=== PATIENT | male | born 1935 | race Caucasian/White ===

== ENCOUNTER 2018-02-24 09:18 | Emergency (ER) | payer MEDICARE, OTHER, SELFPAY ==
[2018-02-24 09:18] VITALS: BP 142/89; PULSE 83; RESP 16; TEMP 36.4; O2SAT 95; BMI 26.2
--- NOTE | 2018-02-24 09:29 | VDLE_ITS ---
Reason For Study: RLE PAIN RIGHT LEFT CFV is compressible, spontaneous, phasic, GSV is normal. competent and demonstrates normal CFV is compressible, spontaneous, phasic, augmentation. competent, and demonstrates normal Procedure augmentation. Exam performed portable in ED. FV is compressible, spontaneous, phasic, The exam was diagnostic. competent and demonstrates normal A preliminary report was called and/or faxed augmentation. to DR. GARRISON @ 10:20 AM. POP V is compressible, spontaneous, phasic, competent and demonstrates normal augmentation. T/P Trunk is compressible. PTV is compressible. LT PerV is compressible. Interpretation Summary There is no evidence of left lower extremity deep vein thrombosis. Left greater saphenous vein appears patent and compressible segmentally. Normal flow patterns right common femoral vein Ordering Physician: Sarah Garrison Referring Physician: PABLO Guo M.D. Performed By: Fernanda Howell RDCS, RVT
--- NOTE | 2018-02-24 09:43 | RAD_ITS ---
STUDY: X-RAY - LEFT TIBIA AND FIBULA REASON FOR EXAM: Male, 83 years old. PROXIMAL POSTERIOR LOWER LEG PAIN. TECHNIQUE: 2 view(s) of the tibia and fibula were obtained. COMPARISON: None. FINDINGS: Normal visualized tibia. Normal visualized fibula. Vascular calcifications RAD/Tibia & Fibula 2 Views IMPRESSION: No fracture or dislocation Electronically Signed: Taniya Boateng MD at 10:07 EDT Tel , Service support ,
--- NOTE | 2018-02-24 10:33 | ED.VISSUMM ---
- ER Visit Summary Date of Service: 02/24/18 Chief Complaint: [Left leg pain] History of Present Illness: The patient is a 83 M [presents the emergency department with complaint of pain in his left leg that started 2 days ago. Patient states initially the pain started just above the anterior aspect of his ankle. That pain is now resolved but now has discomfort behind the left knee. Patient denies any chest pain or shortness of breath. Patient denies any injury. He denies any fever. 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 Patient not currently on anticoagulation. Patient has not taken anything for the pain at home.] Physical Examination: [HEENT-PERRLA, EOMI. Cranial nerves II through XII grossly intact. TMs clear. Mucous membranes moist. No adenopathy. Cardiovascular-regular rate and rhythm without murmur or ectopy Lungs-clear to auscultation, chest wall stable without crepitus or subcu emphysema Abdomen-normoactive bowel sounds, soft, nontender, no rebound or rigidity, no peritoneal signs. Extremities-intact ?4, normal range of motion, normal pulses, atraumatic]. Left leg-patient has tenderness behind the left knee diffusely. No ropes or cords palpated. There is no joint effusion of the knee. Neurovascularly intact distally. Patient has normal range of motion at the knee. Test Results: [Venous duplex of the left lower extremity was negative for DVT. Tib-fib x-ray obtained showed nothing acute.] Emergency Department Course and Treatment: [None] Treatment Plan: [Patient advised to take Tylenol for discomfort. Patient to follow-up with his primary care physician in 5-7 days. Patient did not want anything for pain in the emergency department.] Disposition: [Discharged home in stable condition] Impression: [Left leg pain-etiology uncertain] This note was generated with [employer] dictation software. It may contain incorrect words, spelling, and punctuation that were not noted in review of the chart prior to signing ED Disposition - Plan for ED Patient: Chief Complaint: Lower Extremity Injury Referrals: Lamin Guo III, MD [Primary Care Provider] -
--- NOTE | 2018-02-24 10:36 | ED.DEP ---
ED Disposition - Plan for ED Patient: Chief Complaint: Lower Extremity Injury Instructions: ED Knee Pain [facility] Referrals: Lamin Guo III, MD [Primary Care Provider] - 5-7 Days
== END 2018-02-24 11:02 | disposition home or self-care (01) ==
PROVIDERS: Emergency Provider Emergency Medicine; Family Provider Family Medicine; PCP Family Medicine
DX: M79.605 Pain in left leg (principal); N40.0 Benign prostatic hyperplasia without lower urinary tract symptoms; Z79.82 Long term (current) use of aspirin; Z79.899 Other long term (current) drug therapy; Z87.19 Personal history of other diseases of the digestive system; Z86.718 Personal history of other venous thrombosis and embolism; Z85.72 Personal history of non-Hodgkin lymphomas; Z86.39 Personal history of other endocrine, nutritional and metabolic disease
CPT/HCPCS: 73590; 93971; 99282

== ENCOUNTER 2018-08-07 11:19 | Emergency (ER) | payer MEDICARE, OTHER, SELFPAY ==
[2018-08-07 11:20] VITALS: BP 146/77; PULSE 44; RESP 16; TEMP 36.4; O2SAT 99; BMI 27.4
--- NOTE | 2018-08-07 11:24 | EKG12_ITS ---
Test Reason : DIZZINESS Blood Pressure : / mmHG Vent. Rate : 077 BPM Atrial Rate : 077 BPM P-R Int : 190 ms QRS Dur : 100 ms QT Int : 400 ms P-R-T Axes : 025 -45 054 degrees QTc Int : 452 ms Sinus rhythm with frequent Premature ventricular complexes and Premature atrial complexes Left anterior fascicular block Abnormal ECG Confirmed by TEDDY POLLOCK, EDWIN ([id number]), research editor ALTHEA BERNAL ([id number]) on 08/08/2018 1:31:33 PM Referred By: CHRISTIAN Confirmed By:EDWIN ESPINAL MD
--- NOTE | 2018-08-07 11:24 | RAD_ITS ---
STUDY: X-RAY CHEST REASON FOR EXAM: Male, 83 years old. Low pulse TECHNIQUE: Single AP portable view of the chest. COMPARISON: None. FINDINGS: There is hyperinflation of the lungs consistent with chronic obstructive lung disease (COPD). Mild scarring or atelectasis in the lung bases. There is no demonstrated pleural abnormality. There is borderline cardiomegaly. Normal mediastinum and isiah. Normal visualized pulmonary arteries. Normal visualized aortic arch and descending thoracic aorta. There are diffuse degenerative changes of the visualized thoracic spine. There is degenerative osteoarthritis of the bilateral shoulders. There is no demonstrated abnormality of the visualized soft tissue structures of the upper abdomen. RAD/Chest 1 View (Portable) IMPRESSION: No acute cardiopulmonary disease Electronically Signed: Sraath Rodriguez DO at 12:04 EDT Tel , Service support ,
[2018-08-07 12:21] LABS: Absolute Lymphocyte Count 0.79 X10^3/ul (0.83-4.51); Absolute Neutrophil Count 3.9 X10^3/uL (2.0-7.7); Basophil# 0.02 X10^3/uL; Basophil% 0.4 % (0-1); Eosinophil# 0.17 X10^3/uL; Eosinophils% 3.1 % (0-5); Hematocrit 42.9 % (40-54); Lymphocyte # 0.79 X10^3/ul (4.0); Lymphocyte % 14.5 % (19-41); Mean Corp Hgb Conc 32.6 g/gl (32-36); Mean Corpuscular Hgb 31.6 pg (27.0-32.0); Mean Corpuscular Volume 96.8 fL (80-94); Mean Platelet Vol. 10.2 fl (6.2-12.0); Monocyte# 0.58 X10^3/uL; Monocyte% 10.6 % (0-10); Neutrophil # 3.88 X10^3/uL (2.7-7.7); Neutrophil % 71.2 % (47-70); Platelet Count 206 K/mm3 (150-450); RBC Distribution Width CV 13.3 % (11.6-14.6); RBC Distribution Width SD 46.6 fl (35.1-43.9); Red Blood Count 4.43 M/mm3 (4.6-6.2); White Blood Count 5.5 K/mm3 (4.4-11.0)
[2018-08-07 12:22] LABS: POSITIVE COUNT NO; POSITIVE DIFFERENTIAL NO; POSITIVE MORPHOLOGY NO
[2018-08-07 12:30] VITALS: BP 149/73; PULSE 60; RESP 16; O2SAT 97
[2018-08-07 12:36] LABS: Anion Gap 5 (5-15); BUN 24 mg/dL (7-18); BUN/Creat Ratio 22.4 RATIO (10-20); Chloride 107 mmol/L (98-107); Creatinine, Serum 1.07 mg/dL (0.70-1.30); EST Glomerular Filtration Rate 70 mL/min (>60); Est Glom Filt Rate - Afr Amer 85 mL/min (>60); Estimated Creatinine Clearance 45.34 ml/min; Glucose 83 mg/dL (74-106); Potassium 4.7 mmol/L (3.5-5.1); Sodium Level 139 mmol/L (136-145)
--- NOTE | 2018-08-07 13:04 | ED.DCSUM_ITS ---
- ER Visit Summary Date of Service: 08/07/18 Chief Complaint: [Low heart rate] History of Present Illness: The patient is a 83 M [presents to the emergency department with complaint of low heart rate over the last month. Patient states that he has been checking his pulse ox at home and his heart rate on a finger monitor and at times it has been reading heart rates in the 40s. Patient denies any chest pain. He does describe some mild lightheadedness at times patient also states he has had some mild shortness of breath with exertion is been a chronic issue for a long time. Patient denies recent illness. Patient called his primary care physician's office and was told to come to the ER to get evaluated. Past medical history significant for lymphoma , constipation, and gout.] Physical Examination: [HEENT-PERRLA, EOMI. Cranial nerves II through XII grossly intact. TMs clear. Mucous membranes moist. No adenopathy. Cardiovascular-regular rate and rhythm without murmur or ectopy Lungs-clear to auscultation, chest wall stable without crepitus or subcu emphysema Abdomen-normoactive bowel sounds, soft, nontender, no rebound or rigidity, no peritoneal signs. Extremities-intact ?4, normal range of motion, normal pulses, atraumatic] Test Results: [KG on arrival shows sinus rhythm with a ventricular rate 77 bpm with occasional PVCs and a left anterior fascicular block. CBC with differential obtained showing a 5.5, hemoglobin 14, hematocrit 43, platelets 206. Chemistries were unremarkable. Troponin was less than 0.015.] Chest x- ray showed nothing acute. Emergency Department Course and Treatment: [I had the patient place his finger monitor on his finger and it was reading heart rates in the 50s while on the monitor patient was actually in the 70s. At this point I feel patient is likely get an erroneous results from his monitor which may not be picking up his PVCs.] Treatment Plan: [I reassured the patient that I did not feel there was any emergent indication to admit the patient at this point nor did I see any condition that needed to be addressed. I will discuss case with patient's primary care physician.] Disposition: [Discharged home in stable condition] Impression: [Concern for bradycardia-normal heart rate and exam in the emergency department] This note was generated with [employer] dictation software. It may contain incorrect words, spelling, and punctuation that were not noted in review of the chart prior to signing ED Disposition - Plan for ED Patient: Chief Complaint: Chest Other Referrals: Lamin Guo III, MD [Primary Care Provider] -
--- NOTE | 2018-08-07 13:04 | ED.DEP ---
ED Disposition - Plan for ED Patient: Chief Complaint: Chest Other Instructions: ED Bradycardia, Premature Ventricular Contractions Referrals: Lamin Guo III, MD [Primary Care Provider] - 5-7 Days
[2018-08-07 13:55] VITALS: BP 161/66; PULSE 66; RESP 16; O2SAT 97
== END 2018-08-07 14:02 | disposition home or self-care (01) ==
LOC: ED 13:25
PROVIDERS: Emergency Provider Emergency Medicine; Family Provider Family Medicine; PCP Family Medicine
DX: R42 Dizziness and giddiness (principal); R06.02 Shortness of breath; I44.4 Left anterior fascicular block; I49.3 Ventricular premature depolarization; Z79.82 Long term (current) use of aspirin; Z79.899 Other long term (current) drug therapy; Z85.72 Personal history of non-Hodgkin lymphomas
CPT/HCPCS: 71045; 80048; 84484; 85025; 93005; 99284; A4216

== ENCOUNTER 2019-09-27 11:55 | Observation (INO) | payer MEDICARE, OTHER, SELFPAY ==
[2019-09-27] VITALS (12 sets, daily range): BP systolic 107–154; BP diastolic 50–84; PULSE 47–78; RESP 16–25; TEMP 36.4–37; O2SAT 95–98; BMI 25.8; BMI 25.4
--- NOTE | 2019-09-27 12:10 | CT_ITS ---
STUDY: CT BRAIN WITHOUT CONTRAST REASON FOR EXAM: Male, 84 years old. Dizziness and lightheadedness RADIATION DOSAGE (If Supplied By Facility): CTDIvol = ( 44.99 ) mGy, DLP = ( 745.49 ) mGycm TECHNIQUE: Transaxial CT imaging of the brain was performed without administration of intravenous contrast material. Individualized dose optimization techniques were used for this CT. COMPARISON: No relevant priors. FINDINGS: Normal soft tissue structures. Normal calvarium. There is severe cerebral atrophy with widening of the extra-axial spaces and ventricular dilatation. There are areas of decreased attenuation within the white matter tracts of the supratentorial brain, consistent with microvascular disease changes. Normal basal ganglia and thalami. Normal brainstem. There is moderate cerebellar atrophy. There is no intracranial hemorrhage. There are no findings of an acute ischemic infarction. Normal visualized paranasal sinuses. CT/Brain/Head without Contrast IMPRESSION: Chronic involutional changes of the brain. Electronically Signed: Sarath Rodriguez DO at 13:56 EST Tel , Service support ,
--- NOTE | 2019-09-27 12:10 | EKG12_ITS ---
Test Reason : SYNCOPE Blood Pressure : / mmHG Vent. Rate : 072 BPM Atrial Rate : 072 BPM P-R Int : 186 ms QRS Dur : 092 ms QT Int : 418 ms P-R-T Axes : 042 -29 049 degrees QTc Int : 457 ms Sinus rhythm with frequent Premature ventricular complexes in a pattern of bigeminy Otherwise normal ECG Confirmed by TEDDY POLLOCK, EDWIN ([id number]), restaurant expeditor JAMIE CARRILLO ([id number]) on 09/30/2019 1:55:36 PM Referred By: Tarun Noriega Confirmed By:EDWIN ESPINAL MD
--- NOTE | 2019-09-27 12:25 | RAD_ITS ---
STUDY: X-RAY CHEST REASON FOR EXAM: Male, 84 years old. Syncope and shortness of breath TECHNIQUE: Single AP portable view of the chest. COMPARISON: 08/07/2018 FINDINGS: The lungs are clear and expanded. There is no demonstrated pleural abnormality. There is borderline cardiomegaly. Normal mediastinum and isiah. Normal visualized pulmonary arteries. Normal visualized aortic arch and descending thoracic aorta. Normal visualized thoracic spine. Normal visualized ribs, clavicles, and shoulders. There is no demonstrated abnormality of the visualized soft tissue structures of the upper abdomen. RAD/Chest 1 View (Portable) IMPRESSION: No acute cardiopulmonary disease. Electronically Signed: Sarath Rodriguez DO at 13:33 EST Tel , Service support ,
[2019-09-27] MEDS: 0.9% Normal Saline 1,000 ML 150 ML IV (12:26)
[2019-09-27 12:35] LABS: Absolute Lymphocyte Count 0.68 X10^3/uL (0.83-4.51); Absolute Neutrophil Count 3.6 X10^3/uL (2.0-7.7); Basophil# 0.03 X10^3/uL; Basophil% 0.6 % (0-1); Eosinophil# 0.07 X10^3/uL; Eosinophils% 1.4 % (0-5); Hematocrit 43.4 % (40-54); Hemoglobin 14.3 g/dL (13.0-16.5); Lymphocyte # 0.68 X10^3/ul (4.0); Mean Corp Hgb Conc 32.9 g/dL (32-36); Mean Corpuscular Hgb 32.4 pg (27.0-32.0); Mean Corpuscular Volume 98.2 fL (80-94); Mean Platelet Vol. 10.4 fl (6.2-12.0); Monocyte# 0.52 X10^3/uL; Monocyte% 10.7 % (0-10); NRBC Flagged by Analyzer 0 % (0-5); Neutrophil # 3.56 X10^3/uL (2.7-7.7); Neutrophil % 73.1 % (47-70); Platelet Count 175 K/mm3 (150-450); RBC Distribution Width SD 46.5 fl (35.1-43.9); Red Blood Count 4.42 M/mm3 (4.6-6.2); White Blood Count 4.9 K/mm3 (4.4-11.0)
[2019-09-27 12:50] LABS: White Blood Cells 0 SEEN /hpf (0-5)
[2019-09-27 12:52] LABS: Color, Urine Yellow (Yellow); Glucose, Dipstick Normal (Normal); Ketone-Dipstick 5 mg/dl (Negative); Leukocyte Esterase-Dipstick 25 /ul (Negative); Nitrite-Dipstick Negative (Negative); Occult Blood-Urine Negative /ul (Negative); Protein-Dipstick 15 mg/dl (Negative); Specific Gravity, Urine 1.015 (1.002-1.030); Urine Bilirubin Dipstick Negative (Negative); Urine Clarity Clear (Clear); Urine Urobilinogen Normal (Normal)
[2019-09-27 12:52] LABS: Anion Gap 6 (5-15); BUN 23 mg/dL (7-18); BUN/Creat Ratio 22.8 RATIO (10-20); Calcium,Total 8.9 mg/dL (8.5-10.1); Chloride 108 mmol/L (98-107); Creatinine, Serum 1.01 mg/dL (0.70-1.30); EST Glomerular Filtration Rate 75 mL/min (>60); Est Glom Filt Rate - Afr Amer 91 mL/min (>60); Estimated Creatinine Clearance 47.22 ml/min; Glucose 88 mg/dL (74-106); Potassium 4.6 mmol/L (3.5-5.1); Sodium Level 141 mmol/L (136-145)
[2019-09-27 13:00] LABS: Bacteria RARE /hpf (None Seen); Mucous, Urine 1+ /hpf (<or=2+); Red Blood Cells-Urine 0-5 SEEN /hpf (0-5); Squamous Epithelial Cells - UA 0-5 SEEN /hpf (0-5)
--- NOTE | 2019-09-27 14:01 | ED.VISSUMM ---
- ER Visit Summary Date of Service: 09/27/19 Chief Complaint: [Dizziness and near syncope] History of Present Illness: The patient is a 84 M [presents to the emergency department with complaint of dizziness and not feeling well that started about an hour ago. Patient states that he was in a vehicle waiting for his friend who was shopping when he just started not feeling well. Patient felt like he might pass out. He denies any chest pain or palpitations. He denies any shortness of breath. Apparently had trouble getting out of the car. He generally felt weak but is not sure if there was any focal weakness. He states that he just feels like he is not alert. She has never felt this way before. He denies any headache. Patient has history of high cholesterol, gout, lymphoma, and history of diverticulitis.] Physical Examination: HEENT-PERRLA, EOMI. Cranial nerves II through XII grossly intact. TMs clear. Mucous membranes moist. No adenopathy. Cardiovascular-regular rate and rhythm without murmur or ectopy Lungs-clear to auscultation, chest wall stable without crepitus or subcu emphysema Abdomen-normoactive bowel sounds, soft, nontender, no rebound or rigidity, no peritoneal signs. Neuro [id number] and heel vásquez testing within normal limits, negative Romberg, negative pronator drift, fundi benign. H stroke scale was a 0. Extremities-intact ?4, normal range of motion, normal pulses, atraumatic [] Test Results: [CT scan of the brain without contrast showed chronic involutional changes. Chest x-ray showed nothing acute. EKG on arrival showed a sinus rhythm with a ventricular rate of 72 bpm with frequent PVCs in a bigeminy pattern. CBC with differential shows a white count of 4.9, hemoglobin 14, hematocrit 43, platelets 175. Chemistries unremarkable. Urinalysis normal. Troponin is less than 1015.] Emergency Department Course and Treatment: [Patient had orthostatic vital signs were negative. Patient placed on a manager cardiac cath and started on normal saline.] Treatment Plan: [Admit as patient continues to be symptomatic and no etiology is noted for his symptoms.] Disposition: [Admit] Impression: [Generalized weakness Dizziness] This note was generated with [employer] software. It may contain incorrect words, spelling, and punctuation that were not noted in review of the chart prior to signing ED Disposition - Plan for ED Patient: Referrals: Lamin Guo III, MD [Primary Care Provider] -
--- NOTE | 2019-09-27 14:11 | PCM.HP.STD ---
Problem List (1) Near syncope Status: Acute (2) Constipation Status: Chronic (3) Diverticulitis Status: Inactive (4) BPH (benign prostatic hyperplasia) Status: Chronic (5) Gout Status: Chronic (6) HLD (hyperlipidemia) Status: Chronic (7) Lymphoma Status: Chronic History of Present Illness Date of Admission: 09/27/19 Chief Complaint: Near syncope The patient is a 84 year old M with multiple comorbidities as mentioned above came to ER with dizziness, weakness and blurry vision for about an hour prior to arrival to ER. This happened today while he was sitting in the car of his friend while he was shopping. Patient denies vomiting, nausea, diarrhea/constipation or GI bleed. Denies flulike symptoms fever, cough, lower urinary tract symptoms including dysuria. Patient has history of PVCs and had a stress test in [facility]. Denies history of coronary artery disease, CHF or valvular heart disease. In ED, although his heart rate charted 47 but ER physician feels it might have been misread because of PVCs. On EKG, sinus rhythm with also has bigeminy at 72 bpm. Previous EKG in July 2018 normal sinus rhythm with PVCs with LAFB at 77 bpm. There is no previous stress test, or echo in our system. Orthostatic vitals done in ER is negative. Labs done in ER shows chloride 108, BUN 23 otherwise in acceptable range. UA is negative of pyuria, LE 25 nitrite and bacteria negative. Past Medical History Past Medical History (Chronic Problems): Chronic Problems Gout (Chronic) HLD (hyperlipidemia) (Chronic) BPH (benign prostatic hyperplasia) (Chronic) Lymphoma (Chronic) Constipation (Chronic) Allergies amoxicillin trihydrate [From Augmentin] Allergy (Verified 09/27/19 11:55) Unknown atenolol Allergy (Verified 09/27/19 11:55) Other clindamycin Allergy (Verified 09/27/19 11:55) Hives potassium clavulanate [From Augmentin] Allergy (Verified 09/27/19 11:55) Unknown Home Medications: Ambulatory Orders Medication Instructions Recorded Finasteride [Proscar] 5 mg PO DAILY 04/05/15 Atorvastatin Calcium [Lipitor] 20 mg PO QHS 02/14/17 Nitroglycerin (INPATIENT USE) 0.4 mg SUBLINGUAL Q5M PRN 02/14/17 [Nitrostat] Tamsulosin HCl [Flomax] 0.4 mg PO QHS 02/14/17 Isosorbide Mononitrate [Isosorbide 30 mg PO DAILY 04/23/17 Mononitrate ER] Cholecalciferol (Vitamin D3) 2,000 unit PO DAILY 05/21/17 [Vitamin D3] Aspirin E.C. [Ecotrin] 81 mg PO DAILY@0800 02/24/18 Psyllium Husk [Metamucil] 660 gm PO DAILY 02/24/18 Surgical History: - - back surgery Psychiatric History: No pertinent psych hx Smoking Status: Never smoker - *Family History Sibling History Items: Cancer - prostate Maternal History Items: Heart Disease Review of Systems Constitutional: Denies: Chills, Fever, Weight Change HEENT: Denies: Head Aches, Sinus Congestion, Sinus Drainage Cardiovascular: Reports: Light Headedness. Denies: Chest Pain, Palpitations Respiratory: Denies: Cough, Shortness of breath at rest, Sputum production Gastrointestinal: Reports: Constipation. Denies: Abdominal Pain, Nausea, Vomiting Genitourinary: Denies: Dysuria, Frequency Musculoskeletal: Denies: Joint Pain, Joint Tenderness Skin: Denies: Rash, Wounds Neurological: Denies: Numbness, Tingling, Focal weakness Psychiatric: Denies: Anxiety, Depression, Homicidal Ideations, Suicidal Ideations Hematologic/ Lymphatic: Denies: Easy Bruising, Easy Bleeding VTE Information - Inpt Only VTE Present on Admission: No VTE Mechan Device Prophylaxis: None VTE Pharm Prophylaxis ordered?: Yes Patient Problems: Active and Suspected Problems Near syncope (Acute) - Physical Exam Vitals/I&O's: Vital Signs Temp Pulse Resp BP Pulse Ox 97.6 F L 72 22 H 112/84 H 96 09/27/19 11:55 09/27/19 14:00 09/27/19 14:00 09/27/19 14:00 09/27/19 14:00 Oxygen Delivery Method Room Air Weight: 150 lb 5.684 oz Body Mass Index (BMI) 25.8 General: Alert, Oriented x3, Cooperative HEENT: Atraumatic, PERRLA, EOMI, Normocephalic Oral: No Gingival or Mucosal Lesions/ Ulcerations, Dry Mucosa - Patient is dehydrated Neck: Supple, No JVD, Negative Carotid Bruits Lungs: Clear to auscultation, Normal air movement, No rhonchi, No wheeze, No rales Cardiovascular: Regular rate, Normal S1, Normal S2, Irregular Rate - Pulses bigeminy., Murmur - Systolic murmur present over aortic region and left lower sternal border. Abdomen: Bowel Sounds Present, Soft, Non Tender, Non-Distended Extremities: No edema, Capillary Refill Less than 3 Seconds Skin: No rashes, No breakdown Musculoskeletal: No Tenderness to Palpation of Joints or Extremities, Arthritic Changes Neurological: Cranial nerves II-XII grossly intact, Deep Tendon Reflexes 2+/4 and Symmetrical, Neuro grossly intact Psych/Mental Status: Normal Affect, Appropriate Laboratory Results 09/27/19 12:15: WBC 4.9, RBC 4.42 L, Hgb 14.3, Hct 43.4, MCV 98.2 H, MCH 32.4 H, MCHC 32.9, RDW Std Deviation 46.5 H, RDW Coeff of Raul 13.0, Plt Count 175, MPV 10.4, Immature Gran % (Auto) 0.200, Neut % (Auto) 73.1 H, Lymph % (Auto) 14.0 L, Juncos % (Auto) 10.7 H, Eos % (Auto) 1.4, Baso % (Auto) 0.6, Absolute Neuts (auto) 3.6, Absolute Lymphs (auto) 0.68 L, Nucleated RBC % 0 09/27/19 12:15: Sodium 141, Potassium 4.6, Chloride 108 H, Carbon Dioxide 27.0, Anion Gap 6, BUN 23 H, Creatinine 1.01, Estim Creat Clear Calc 47.22, Est GFR (MDRD) Af Amer 91, Est GFR (MDRD) Non-Af 75, BUN/Creatinine Ratio 22.8 H, Glucose 88, Calcium 8.9, Troponin I < 0.015 09/27/19 12:40: Urine Color Yellow, Urine Clarity Clear, Urine pH 5.0, Ur Specific Thurman 1.015, Urine Protein 15 H, Urine Glucose (UA) Normal, Urine Ketones 5 H, Urine Occult Blood Negative, Urine Nitrite Negative, Urine Bilirubin Negative, Urine Urobilinogen Normal, Ur Leukocyte Esterase 25 H, Urine RBC 0-5 SEEN, Urine WBC 0 SEEN, Ur Squamous Epith Cells 0-5 SEEN, Urine Bacteria RARE, Urine Mucus 1+ Current Medications Sodium Chloride () 1,000 mls @ 150 mls/hr IV .[id number] [facility] Last Admin: 09/27/19 12:26 Dose: 150 mls/hr Documented by: Assessment/Plan All Active Problems Near syncope (Acute) The patient is a 84 year old M with multiple comorbidities as mentioned above came to ER with dizziness, weakness and blurry vision for about an hour prior to arrival to ER. This happened today while he was sitting in the car of his friend while he was shopping. Patient denies vomiting, nausea, diarrhea/constipation or GI bleed. Denies flulike symptoms fever, cough, lower urinary tract symptoms including dysuria. Patient has history of PVCs and had a stress test in [facility]. Denies history of coronary artery disease, CHF or valvular heart disease. In ED, although his heart rate charted 47 but ER physician feels it might have been misread because of PVCs. On EKG, sinus rhythm with also has bigeminy at 72 bpm. Previous EKG in July 2018 normal sinus rhythm with PVCs with LAFB at 77 bpm. There is no previous stress test, or echo in our system. Orthostatic vitals done in ER is negative. Labs done in ER shows chloride 108, BUN 23 otherwise in acceptable range. UA is negative of pyuria, LE 25 nitrite and bacteria negative. 1. Near syncope exact etiology unclear possible related to pulsus bigeminy: The patient is being admitted in PCU. Cardiac monitoring. 2D echo ordered. We will try to get previous cardiac work-up in [facility]. Serial troponins. IV fluid normal saline at 100 mils per hour. Monitor intake and output. Since patient is allergic to atenolol therefore we will try low-dose Cardizem 30 mg to see his response against pulses bigeminy 2. Hypertension: Patient is on isosorbide mononitrate and sublingual nitro at home that raises suspicion of possible history of ischemic heart disease although patient denies it. 3. Dyslipidemia: Continue atorvastatin 4. Patient has history of chronic constipation with recurrent bowel surgery for obstruction status post mesh placement: Continue his bowel regimen Metamucil. 5. BPH: On Flomax and Proscar DVT prophylaxis: On Lovenox 40 mg subcu daily Laboratory Results 09/27/19 12:15: WBC 4.9, RBC 4.42 L, Hgb 14.3, Hct 43.4, MCV 98.2 H, MCH 32.4 H, MCHC 32.9, RDW Std Deviation 46.5 H, RDW Coeff of Raul 13.0, Plt Count 175, MPV 10.4, Immature Gran % (Auto) 0.200, Neut % (Auto) 73.1 H, Lymph % (Auto) 14.0 L, Juncos % (Auto) 10.7 H, Eos % (Auto) 1.4, Baso % (Auto) 0.6, Absolute Neuts (auto) 3.6, Absolute Lymphs (auto) 0.68 L, Nucleated RBC % 0 09/27/19 12:15: Sodium 141, Potassium 4.6, Chloride 108 H, Carbon Dioxide 27.0, Anion Gap 6, BUN 23 H, Creatinine 1.01, Estim Creat Clear Calc 47.22, Est GFR (MDRD) Af Amer 91, Est GFR (MDRD) Non-Af 75, BUN/Creatinine Ratio 22.8 H, Glucose 88, Calcium 8.9, Troponin I < 0.015 09/27/19 12:40: Urine Color Yellow, Urine Clarity Clear, Urine pH 5.0, Ur Specific Thurman 1.015, Urine Protein 15 H, Urine Glucose (UA) Normal, Urine Ketones 5 H, Urine Occult Blood Negative, Urine Nitrite Negative, Urine Bilirubin Negative, Urine Urobilinogen Normal, Ur Leukocyte Esterase 25 H, Urine RBC 0-5 SEEN, Urine WBC 0 SEEN, Ur Squamous Epith Cells 0-5 SEEN, Urine Bacteria RARE, Urine Mucus 1+ [] Clinical Impression(s) from Imaging Studies Brain CT 09/27/19 12:10 IMPRESSION: Chronic involutional changes of the brain. Chest X-Ray 09/27/19 12:25 IMPRESSION: No acute cardiopulmonary disease. Code Visit OBSV E&M: 10482 Initial observation care L3
--- NOTE | 2019-09-27 15:11 | ECHOD_ITS ---
Reason For Study: NEAR SYNCOPE Procedure This was a 2D Doppler, Color Flow transthoracic echocardiogram. Exam performed portable in patient room. Left Ventricle Normal LV size. The estimated ejection fraction is 75 %. Stage 2 diastolic dysfunction. No regional wall motion abnormalities noted. Right Ventricle Normal RV size. Normal systolic function. Atria The left atrium is mildly enlarged. Normal right atrium. Mitral Valve Normal mitral valve. Mild (1+) eccentric mitral valve insufficiency. Tricuspid Valve Normal tricuspid valve. Mild to moderate (1-2+) tricuspid valve insufficiency. Pulmonary artery systolic pressure is 54 mmHg. Aortic Valve The aortic valve is not well visualized. Pulmonic Valve The pulmonic valve is not well visualized. Great Vessels Normal aortic root. Pericardium/Pleural No pericardial effusion. MMode/2D Measurements & Calculations LVIDd: 3.9 cm IVSd: 1.3 cm Ao root diam: 3.3 cm LVIDs: 2.5 cm LVPWd: 1.1 cm RVDd: 3.7 cm FS: 37.7 % LAV(MOD-bp): 64.0 ml LVAd ap4: 25.4 cm2 SV(MOD-sp4): 51.3 ml LAV(MOD-bp) Indexed: 37.0 ml/m2 EDV(MOD-sp4): 79.1 ml LAV(MOD-sp2): 65.4 ml EDV(sp4-el): 83.1 ml LAV(MOD-sp4): 62.6 ml LVAs ap4: 14.0 cm2 ESV(MOD-sp4): 27.8 ml ESV(sp4-el): 27.8 ml EF(MOD-sp4): 64.8 % EF(sp4-el): 66.6 % SV(sp4-el): 55.3 ml LA A4 area: 21.1 cm2 LA dimension(2D): 4.8 cm RA A4 area: 15.8 cm2 Time Measurements MV dec time: 0.18 sec Doppler Measurements & Calculations MV E max romeo: 105.3 cm/sec Lat Peak E' Romeo: 9.1 cm/sec Med Peak E' Romeo: 6.0 cm/sec MV A max romeo: 88.5 cm/sec E/E' lat: 11.6 E/E' med: 17.4 MV E/A: 1.2 Ao V2 max: 116.0 cm/sec LV V1 max: 102.0 cm/sec PA V2 max: 112.8 cm/sec Ao max P.4 mmHg LV V1 max P.2 mmHg TR max romeo: 351.8 cm/sec PI dec slope: 153.4 cm/sec2 TR max P.5 mmHg Interpretation Summary Normal LV size. The estimated ejection fraction is 75 %. Stage 2 diastolic dysfunction. Pulmonary artery systolic pressure is 54 mmHg. Mild (1+) eccentric mitral valve insufficiency. Ordering Physician: Tarun Noriega Referring Physician: LASHAWN FORTE Performed By: Lucina Cline RDCS
[2019-09-27 15:37] LABS: Magnesium 1.9 mg/dL (1.6-2.6)
[2019-09-27] MEDS: dilTIAZem 60 MG Tablet 30 MG PO (16:22)
[2019-09-27] MEDS: Aspirin E.C. 81 MG Tablet PO (16:22)
[2019-09-27] MEDS: Enoxaparin 40 MG/0.4 ML Syringe SC (16:23)
[2019-09-27] MEDS: 0.9% Normal Saline 1,000 ML 100 ML IV (16:25)
[2019-09-27] MEDS: dilTIAZem 30 MG Tablet PO (20:23)
[2019-09-27] MEDS: Tamsulosin HCl 0.4 MG Capsule PO (21:21)
[2019-09-28] VITALS (12 sets, daily range): BP systolic 109–132; BP diastolic 48–68; PULSE 63–77; RESP 14–16; TEMP 36.5–36.6; O2SAT 90–96
[2019-09-28] MEDS: 0.9% Normal Saline 1,000 ML 100 ML IV (02:25)
[2019-09-28] MEDS: dilTIAZem 30 MG Tablet PO (06:06)
[2019-09-28 06:43] LABS: Absolute Lymphocyte Count 0.76 X10^3/uL (0.83-4.51); Absolute Neutrophil Count 2.6 X10^3/uL (2.0-7.7); Basophil# 0.05 X10^3/uL; Basophil% 1.3 % (0-1); Eosinophil# 0.12 X10^3/uL; Hematocrit 41.9 % (40-54); Hemoglobin 13.8 g/dL (13.0-16.5); Lymphocyte # 0.76 X10^3/ul (4.0); Lymphocyte % 19.1 % (19-41); Mean Corp Hgb Conc 32.9 g/dL (32-36); Mean Corpuscular Hgb 32.3 pg (27.0-32.0); Mean Corpuscular Volume 98.1 fL (80-94); Mean Platelet Vol. 10.8 fl (6.2-12.0); Monocyte# 0.46 X10^3/uL; Monocyte% 11.6 % (0-10); NRBC Flagged by Analyzer 0 % (0-5); Neutrophil # 2.57 X10^3/uL (2.7-7.7); Neutrophil % 64.5 % (47-70); Platelet Count 158 K/mm3 (150-450); RBC Distribution Width CV 13.1 % (11.6-14.6); RBC Distribution Width SD 47.3 fl (35.1-43.9); Red Blood Count 4.27 M/mm3 (4.6-6.2)
[2019-09-28 07:10] LABS: Anion Gap 4 (5-15); BUN 22 mg/dL (7-18); BUN/Creat Ratio 25.6 RATIO (10-20); Calcium,Total 8.3 mg/dL (8.5-10.1); Chloride 113 mmol/L (98-107); Creatinine, Serum 0.86 mg/dL (0.70-1.30); EST Glomerular Filtration Rate 91 mL/min (>60); Est Glom Filt Rate - Afr Amer 110 mL/min (>60); Estimated Creatinine Clearance 55.45 ml/min; Glucose 82 mg/dL (74-106); Potassium 4.3 mmol/L (3.5-5.1); Sodium Level 143 mmol/L (136-145); Thyroid Stim Hormone (TSH) 1.24 uIU/mL (0.358-3.74)
[2019-09-28] MEDS: Enoxaparin 40 MG/0.4 ML Syringe SC (09:30)
[2019-09-28] MEDS: Finasteride 5 MG Tablet PO (09:30)
[2019-09-28] MEDS: Aspirin E.C. 81 MG Tablet PO (09:30)
--- NOTE | 2019-09-28 09:32 | CON.PCM_ITS ---
Reason for Consult Date of Consultation: 09/28/19 Reason for Consultation: Dizziness with PVCs History of Present Illness: The patient is a 84 year old M with a previous history of premature ventricular complexes, hypertension, gout who presented to the emergency room yesterday because he had an episode of dizziness which he says was worse than before. He did not have any valdo syncopal episodes. He has been noted in the past to have premature ventricular complexes and had an echocardiogram done in 2016 which demonstrated an ejection fraction of 73% with stage I diastolic dysfunction. He said he was previously put on atenolol but he did not tolerated well at all. He has had no chest pain or paroxysmal nocturnal dyspnea or pedal edema. He has been compliant with his medications. In the emergency room he was noted to be in sinus rhythm with a pattern of bigeminy and he was admitted to the telemetry care unit. [] Past Medical History Allergies/Adverse Reactions: Allergies amoxicillin trihydrate [From Augmentin] Allergy (Verified 09/27/19 18:19) Other syncope atenolol Allergy (Verified 09/27/19 11:55) Other clindamycin Allergy (Verified 09/27/19 11:55) Hives potassium clavulanate [From Augmentin] Allergy (Verified 09/27/19 11:55) Unknown Home Medications: Ambulatory Orders Medication Instructions Recorded Finasteride [Proscar] 5 mg PO DAILY 04/05/15 Atorvastatin Calcium [Lipitor] 20 mg PO QHS 02/14/17 Nitroglycerin (INPATIENT USE) 0.4 mg SUBLINGUAL Q5M PRN 02/14/17 [Nitrostat] Tamsulosin HCl [Flomax] 0.4 mg PO QHS 02/14/17 Isosorbide Mononitrate [Isosorbide 30 mg PO DAILY 04/23/17 Mononitrate ER] Cholecalciferol (Vitamin D3) 2,000 unit PO DAILY 05/21/17 [Vitamin D3] Aspirin E.C. [Ecotrin] 81 mg PO DAILY@0800 02/24/18 Psyllium Husk [Metamucil] 660 gm PO DAILY 02/24/18 Meloxicam [Mobic] 15 mg PO BREAKFAST 09/27/19 Past Medical History (Chronic Problems): Chronic Problems Gout (Chronic) HLD (hyperlipidemia) (Chronic) BPH (benign prostatic hyperplasia) (Chronic) Lymphoma (Chronic) Constipation (Chronic) Surgical History: - - back surgery Psychiatric History: No pertinent psych hx - *Family History Sibling History Items: Cancer - prostate Maternal History Items: Heart Disease Smoking Status: Never smoker Alcohol: None Drugs: None Review of Systems - Review of Systems General: Denies: Fever, Night Sweats, Fatigue HEENT: Denies: Vision Change Cardiovascular: Reports: Lightheadedness, Dizziness, Near Syncope. Denies: Chest Discomfort, Shortness of Breath, Orthopnea, PND, Peripheral Edema, Palpitations, Syncope Respiratory: Denies: Cough, Sputum Production, Hemoptysis Gastrointestinal: Denies: Hematemesis, Hematochezia, Melena Genitourinary: Denies: Dysuria, Hematuria Muscoloskeletal: Denies: Myalgias Skin: Denies: Rash Neurological: Reports: Dizziness Psychiatric: Denies: Anxiety Endocrine: Denies: Unexplained Weight Loss Hematologic/ Lymphatic: Denies: Anemia Subjectve: Pleasant gentleman in no distress sitting in a chair on the phone Objective: Vital Signs Temp Pulse Resp BP Pulse Ox 97.7 F L 73 14 113/52 L 94 09/28/19 09:20 09/28/19 09:20 09/28/19 09:20 09/28/19 09:20 09/28/19 09:20 Oxygen Delivery Method Room Air Weight: 148 lb 9.465 oz Body Mass Index (BMI) 25.4 Orthostatic Vital Signs Start: 09/27/19 18:20 Freq: q24h Status: Active Protocol: Activity Type Activity Date Activity User E-Sign Co-Sign Detail Recorded Client Recorded Date Recorded By Document 09/28/19 03:28 [facility] [id number] 09/28/19 03:32 [facility] 09/28/19 03:28 Orthostatic Vitals Standing -Blood Pressure (90/60-120/80) 126/68 H -Extremity Use Right Arm -Pulse Rate (60-100) 77 Sitting -Blood Pressure (90/60-120/80) 116/56 L -Extremity Use Right Arm -Pulse Rate (60-100) 71 Lying -Blood Pressure (90/60-120/80) 132/56 H -Extremity Use Right Arm -Pulse Rate (60-100) 67 Intake and Output for Last 24 Hours 09/26/19 09/27/19 09/28/19 23:59 23:59 23:59 Intake Total 1522.5 / 1522.5 370 / 370 Output Total 950 / 950 Balance 572.5 / 572.5 370 / 370 General: Awake, Alert, Oriented x 3 HEENT: PERRL, EOMI, Sclera Non Icteric Neck: Supple, Good ROM, No Lymph Node Enlargement Lungs: Clear to auscultation Cardiovascular: Regular Rhythm, Premature Ectopic Beats, Normal S1, Normal S2, No Murmurs, No Rubs, No Gallops Vascular: No Carotid Bruits, Normal Femoral Pulses, Normal Radial Pulses, Normal Dorsalis Pedal Pulse, Normal Posterior Tibial Pulses Abdomen: Bowel Sounds Present, Soft, Non Tender, No HSM, No Organomegaly Extremities: No Cyanosis, No Clubbing, No edema Musculoskeletal: No Erythema Skin: No Rashes Lymphatic: No Lymph Node Enlargement Neurological: No Focal Motor or Sensory Deficit Psych/Mental Status: Appropriate 09/27/19 12:15: WBC 4.9, RBC 4.42 L, Hgb 14.3, Hct 43.4, MCV 98.2 H, MCH 32.4 H, MCHC 32.9, Plt Count 175, MPV 10.4, Immature Gran % (Auto) 0.200, Neut % (Auto) 73.1 H, Lymph % (Auto) 14.0 L, Denali % (Auto) 10.7 H, Eos % (Auto) 1.4, Baso % (Auto) 0.6, Absolute Neuts (auto) 3.6, Nucleated RBC % 0 09/27/19 12:15: Sodium 141, Potassium 4.6, Chloride 108 H, Carbon Dioxide 27.0, Anion Gap 6, BUN 23 H, Creatinine 1.01, Est GFR (MDRD) Af Amer 91, Est GFR (MDRD) Non-Af 75, BUN/Creatinine Ratio 22.8 H, Glucose 88, Calcium 8.9, Troponin I < 0.015 09/27/19 12:15: Magnesium 1.9 09/27/19 12:40: Urine Color Yellow, Urine Clarity Clear, Urine pH 5.0, Ur Specific Kerby 1.015, Urine Protein 15 H, Urine Glucose (UA) Normal, Urine Ketones 5 H, Urine Occult Blood Negative, Urine Nitrite Negative, Urine Bilirubin Negative, Urine Urobilinogen Normal, Ur Leukocyte Esterase 25 H, Urine RBC 0-5 SEEN, Urine WBC 0 SEEN 09/27/19 15:32: Troponin I < 0.015 09/27/19 18:50: Troponin I < 0.015 09/28/19 06:00: Sodium 143, Potassium 4.3, Chloride 113 H, Carbon Dioxide 26.0, Anion Gap 4 L, BUN 22 H, Creatinine 0.86, Est GFR (MDRD) Af Amer 110, Est GFR (MDRD) Non-Af 91, BUN/Creatinine Ratio 25.6 H, Glucose 82, Calcium 8.3 L 09/28/19 06:00: WBC 4.0 L, RBC 4.27 L, Hgb 13.8, Hct 41.9, MCV 98.1 H, MCH 32.3 H, MCHC 32.9, Plt Count 158, MPV 10.8, Immature Gran % (Auto) 0.500, Neut % (Auto) 64.5, Lymph % (Auto) 19.1, Denali % (Auto) 11.6 H, Eos % (Auto) 3.0, Baso % (Auto) 1.3 H, Absolute Neuts (auto) 2.6, Nucleated RBC % 0 Rhythm: EKG: Normal sinus rhythm with premature ventricular complexes ECHO: Stress Test: Cardiac Cath: PCI: CT Surgery: Holter monitor: EPS: PPM: CXR: Chest CT Scan: Assessment/Plan 1. Dizziness * Exact etiology is unclear at this time but patient appears to have significant premature ventricular complexes. My recommendation will be for us to try him on a different dose of low-dose beta-sherman such as metoprolol 12.5 mg twice a day * An echocardiogram should be reevaluated to assess his left ventricular function * Upon discharge it may be helpful to put him on a 24-hour Holter monitor to quantify his premature ventricular complex burden. * This would allow as to further make a decision as to his treatment options. * Commend that we discontinue the isosorbide at this particular time there is no evidence for ischemia. * * Thank you for allowing me to participate in the care of your patient. Please don't hesitate to call if any issues arise
[2019-09-28] MEDS: Metoprolol Tartrate 25 MG Tablet 12.5 MG PO ×2 (10:41→21:23)
--- NOTE | 2019-09-28 12:41 | PN_ITS ---
<Destiny Hay - Last Filed: 09/28/19 12:45> Patient Problems: Active and Suspected Problems Near syncope (Acute) Subjective: Patient seen and examined. Denies further syncope, presyncope. Denies palpitations, dizziness, lightheadedness. - Physical Exam Vitals/I&O's: Vital Signs Temp Pulse Resp BP Pulse Ox 97.7 F L 74 14 113/52 L 94 09/28/19 09:20 09/28/19 10:41 09/28/19 09:20 09/28/19 09:20 09/28/19 09:20 Oxygen Delivery Method Room Air Weight: 148 lb 9.465 oz Body Mass Index (BMI) 25.4 Orthostatic Vital Signs Start: 09/27/19 18:20 Freq: q24h Status: Active Protocol: Activity Type Activity Date Activity User E-Sign Co-Sign Detail Recorded Client Recorded Date Recorded By Document 09/28/19 03:28 [facility] [id number] 09/28/19 03:32 [facility] 09/28/19 03:28 Orthostatic Vitals Standing -Blood Pressure (90/60-120/80) 126/68 H -Extremity Use Right Arm -Pulse Rate (60-100) 77 Sitting -Blood Pressure (90/60-120/80) 116/56 L -Extremity Use Right Arm -Pulse Rate (60-100) 71 Lying -Blood Pressure (90/60-120/80) 132/56 H -Extremity Use Right Arm -Pulse Rate (60-100) 67 Intake and Output for Last 24 Hours 09/26/19 09/27/19 09/28/19 23:59 23:59 23:59 Intake Total 1522.5 / 1522.5 370 / 370 Output Total 950 / 950 625 / 625 Balance 572.5 / 572.5 -255 / -255 General: Alert, Oriented x3, Cooperative HEENT: Atraumatic, PERRLA, EOMI, Normocephalic Neck: Supple, No JVD, Negative Carotid Bruits Lungs: Clear to auscultation, Normal air movement Cardiovascular: Regular rate, Regular Rhythm, Normal S1, Normal S2, No murmurs, - - Premature ectopic beats Abdomen: Bowel Sounds Present, Soft, Non Tender, Non-Distended Extremities: No clubbing, No cyanosis, No edema, Capillary Refill Less than 3 Seconds Skin: No rashes, No breakdown Musculoskeletal: No Tenderness to Palpation of Joints or Extremities Neurological: Cranial nerves II-XII grossly intact, Neuro grossly intact Psych/Mental Status: Normal Affect, Appropriate Laboratory Results 09/27/19 12:15: Sodium 141, Potassium 4.6, Chloride 108 H, Carbon Dioxide 27.0, Anion Gap 6, BUN 23 H, Creatinine 1.01, Estim Creat Clear Calc 47.22, Est GFR (MDRD) Af Amer 91, Est GFR (MDRD) Non-Af 75, BUN/Creatinine Ratio 22.8 H, Glucose 88, Calcium 8.9, Troponin I < 0.015 09/27/19 12:15: Magnesium 1.9 09/27/19 12:40: Urine Color Yellow, Urine Clarity Clear, Urine pH 5.0, Ur Specific Howell 1.015, Urine Protein 15 H, Urine Glucose (UA) Normal, Urine Ketones 5 H, Urine Occult Blood Negative, Urine Nitrite Negative, Urine Bilirubin Negative, Urine Urobilinogen Normal, Ur Leukocyte Esterase 25 H, Urine RBC 0-5 SEEN, Urine WBC 0 SEEN, Ur Squamous Epith Cells 0-5 SEEN, Urine Bacteria RARE, Urine Mucus 1+ 09/27/19 15:32: Troponin I < 0.015 09/27/19 18:50: Troponin I < 0.015 09/28/19 06:00: Sodium 143, Potassium 4.3, Chloride 113 H, Carbon Dioxide 26.0, Anion Gap 4 L, BUN 22 H, Creatinine 0.86, Estim Creat Clear Calc 55.45, Est GFR (MDRD) Af Amer 110, Est GFR (MDRD) Non-Af 91, BUN/Creatinine Ratio 25.6 H, Glucose 82, Calcium 8.3 L, TSH 1.24 09/28/19 06:00: WBC 4.0 L, RBC 4.27 L, Hgb 13.8, Hct 41.9, MCV 98.1 H, MCH 32.3 H, MCHC 32.9, RDW Std Deviation 47.3 H, RDW Coeff of Raul 13.1, Plt Count 158, MPV 10.8, Immature Gran % (Auto) 0.500, Neut % (Auto) 64.5, Lymph % (Auto) 19.1, Laurel % (Auto) 11.6 H, Eos % (Auto) 3.0, Baso % (Auto) 1.3 H, Absolute Neuts (auto) 2.6, Absolute Lymphs (auto) 0.76 L, Nucleated RBC % 0 Current Medications Acetaminophen (Tylenol) 650 mg PO Q6H PRN PRN PRN Reason: Pain Score 1-3/Temp > 100.7 F Albuterol Sulfate (Ventolin Aerosols) 2.5 mg INHALATION Q2H PRN PRN PRN Reason: SOB/Wheezing Aspirin (Ecotrin) 81 mg PO DAILY@0800 COUNT INCLUDES THE [facility] Last Admin: 09/28/19 09:30 Dose: 81 mg Documented by: Atorvastatin Calcium (Lipitor) 20 mg PO QHS COUNT INCLUDES THE [facility] Last Admin: 09/27/19 21:21 Dose: Not Given Documented by: Enoxaparin Sodium (Lovenox) 40 mg SC DAILY COUNT INCLUDES THE [facility] Last Admin: 09/28/19 09:30 Dose: 40 mg Documented by: Finasteride (Proscar) 5 mg PO DAILY COUNT INCLUDES THE [facility] Last Admin: 09/28/19 09:30 Dose: 5 mg Documented by: Glucagon () 1 mg IM .X1 PRN PRN Reason: Hypoglycemia Sodium Chloride () 1,000 mls @ 100 mls/hr IV .Q10H COUNT INCLUDES THE [facility] Stop: 09/28/19 13:00 Last Admin: 09/28/19 02:25 Dose: 100 mls/hr Documented by: Metoprolol Tartrate (Lopressor (Beta Gideon)) 12.5 mg PO BID COUNT INCLUDES THE [facility] Last Admin: 09/28/19 10:41 Dose: 12.5 mg Documented by: Morphine Sulfate () 2 mg IV Q3H PRN PRN PRN Reason: Pain Score 6-10/10 Nitroglycerin (Nitrostat) 0.4 mg SUBLINGUAL Q5M PRN PRN Reason: Chest Pain Oxycodone HCl (Oxyir) 5 mg PO Q4H PRN PRN PRN Reason: Pain Score 4-5/10 Psyllium Hydrophilic Mucilloid (Metamucil) 1 packet PO DAILY COUNT INCLUDES THE [facility] Senna/Docusate Sodium (Senokot-S, Helena-Colace) 2 tablet PO BID PRN PRN PRN Reason: Constipation Sodium Chloride () 10 - 40 ml IV UD PRN PRN Reason: SALINE FLUSH Tamsulosin HCl (Flomax) 0.4 mg PO QHS COUNT INCLUDES THE [facility] Last Admin: 09/27/19 21:21 Dose: 0.4 mg Documented by: Medical Necessity - Tobacco Use Smoking Status: Never smoker Assessment/Plan All Active Problems Near syncope (Acute) 1. Near syncope, suspect secondary to arrhythmia-cardiology consulted. Telemetry demonstrates premature ventricular complexes. Beta-gideon regimen adjusted per cardiology. Plan for echocardiogram in the a.m. 24-hour Holter monitor at discharge. 2. Hypertension-stable, continue metoprolol regimen. Home isosorbide regimen discontinued given no history of CAD. 3. Hyperlipidemia-continue statin regimen. 4. Chronic constipation-recurrent bowel surgery for obstruction, status post mesh placement. Continue home bowel regimen. 5. BPH-continue Flomax, Proscar. DVT prophylaxis-Lovenox subcu This patient was seen by NIDA Dai under the supervision of Dr. Noriega. <Tarun Noriega - Last Filed: 09/28/19 14:16> Subjective: Seen and examined. Patient dizziness, lightheadedness have resolved. Denies extra heartbeat or palpitation. No chest pressure. Discussed with composer teaching artist Dr. huynh. code number stamper reviewed. PVCs rate has decreased. Patient further said he had near syncope or fainting-like situations/near fall on atenolol. Started on low-dose of metoprolol. Cardizem discontinued - Physical Exam Vitals/I&O's: Vital Signs Temp Pulse Resp BP Pulse Ox 97.7 F L 74 14 113/52 L 94 09/28/19 09:20 09/28/19 10:41 09/28/19 09:20 09/28/19 09:20 09/28/19 09:20 Oxygen Delivery Method Room Air Weight: 148 lb 9.465 oz Body Mass Index (BMI) 25.4 Orthostatic Vital Signs Start: 09/27/19 18:20 Freq: q24h Status: Active Protocol: Activity Type Activity Date Activity User E-Sign Co-Sign Detail Recorded Client Recorded Date Recorded By Document 09/28/19 03:28 [facility] [id number] 09/28/19 03:32 [facility] 09/28/19 03:28 Orthostatic Vitals Standing -Blood Pressure (90/60-120/80) 126/68 H -Extremity Use Right Arm -Pulse Rate (60-100) 77 Sitting -Blood Pressure (90/60-120/80) 116/56 L -Extremity Use Right Arm -Pulse Rate (60-100) 71 Lying -Blood Pressure (90/60-120/80) 132/56 H -Extremity Use Right Arm -Pulse Rate (60-100) 67 Intake and Output for Last 24 Hours 09/26/19 09/27/19 09/28/19 23:59 23:59 23:59 Intake Total 1522.5 / 1522.5 370 / 370 Output Total 950 / 950 625 / 625 Balance 572.5 / 572.5 -255 / -255 General: Alert, Oriented x3, Cooperative HEENT: Atraumatic, PERRLA, EOMI, Normocephalic Neck: Supple, No JVD, Negative Carotid Bruits Lungs: Clear to auscultation, Normal air movement Cardiovascular: Regular rate, Regular Rhythm, Normal S1, Normal S2, No murmurs, - - Premature ectopic beats code number stamper shows PVC but not pulses bigeminy. Abdomen: Bowel Sounds Present, Soft, Non Tender, Non-Distended Extremities: No edema, Capillary Refill Less than 3 Seconds Skin: No rashes, No breakdown Musculoskeletal: No Tenderness to Palpation of Joints or Extremities, Arthritic Changes Neurological: Cranial nerves II-XII grossly intact, Deep Tendon Reflexes 2+/4 and Symmetrical, Neuro grossly intact, Motor Exam 5/5 strength throughout Psych/Mental Status: Normal Affect, Appropriate Laboratory Results 09/27/19 12:15: Magnesium 1.9 09/27/19 15:32: Troponin I < 0.015 09/27/19 18:50: Troponin I < 0.015 09/28/19 06:00: Sodium 143, Potassium 4.3, Chloride 113 H, Carbon Dioxide 26.0, Anion Gap 4 L, BUN 22 H, Creatinine 0.86, Estim Creat Clear Calc 55.45, Est GFR (MDRD) Af Amer 110, Est GFR (MDRD) Non-Af 91, BUN/Creatinine Ratio 25.6 H, Glucose 82, Calcium 8.3 L, TSH 1.24 09/28/19 06:00: WBC 4.0 L, RBC 4.27 L, Hgb 13.8, Hct 41.9, MCV 98.1 H, MCH 32.3 H, MCHC 32.9, RDW Std Deviation 47.3 H, RDW Coeff of Raul 13.1, Plt Count 158, MPV 10.8, Immature Gran % (Auto) 0.500, Neut % (Auto) 64.5, Lymph % (Auto) 19.1, Laurel % (Auto) 11.6 H, Eos % (Auto) 3.0, Baso % (Auto) 1.3 H, Absolute Neuts (auto) 2.6, Absolute Lymphs (auto) 0.76 L, Nucleated RBC % 0 Current Medications Acetaminophen (Tylenol) 650 mg PO Q6H PRN PRN PRN Reason: Pain Score 1-3/Temp > 100.7 F Albuterol Sulfate (Ventolin Aerosols) 2.5 mg INHALATION Q2H PRN PRN PRN Reason: SOB/Wheezing Aspirin (Ecotrin) 81 mg PO DAILY@0800 COUNT INCLUDES THE [facility] Last Admin: 09/28/19 09:30 Dose: 81 mg Documented by: Atorvastatin Calcium (Lipitor) 20 mg PO QHS COUNT INCLUDES THE [facility] Last Admin: 09/27/19 21:21 Dose: Not Given Documented by: Enoxaparin Sodium (Lovenox) 40 mg SC DAILY COUNT INCLUDES THE [facility] Last Admin: 09/28/19 09:30 Dose: 40 mg Documented by: Finasteride (Proscar) 5 mg PO DAILY COUNT INCLUDES THE [facility] Last Admin: 09/28/19 09:30 Dose: 5 mg Documented by: Glucagon () 1 mg IM .X1 PRN PRN Reason: Hypoglycemia Metoprolol Tartrate (Lopressor (Beta Gideon)) 12.5 mg PO BID COUNT INCLUDES THE [facility] Last Admin: 09/28/19 10:41 Dose: 12.5 mg Documented by: Morphine Sulfate () 2 mg IV Q3H PRN PRN PRN Reason: Pain Score 6-10/10 Nitroglycerin (Nitrostat) 0.4 mg SUBLINGUAL Q5M PRN PRN Reason: Chest Pain Oxycodone HCl (Oxyir) 5 mg PO Q4H PRN PRN PRN Reason: Pain Score 4-5/10 Psyllium Hydrophilic Mucilloid (Metamucil) 1 packet PO DAILY COUNT INCLUDES THE [facility] Senna/Docusate Sodium (Senokot-S, [place]ena-Colace) 2 tablet PO BID PRN PRN PRN Reason: Constipation Sodium Chloride () 10 - 40 ml IV UD PRN PRN Reason: SALINE FLUSH Tamsulosin HCl (Flomax) 0.4 mg PO QHS COUNT INCLUDES THE [facility] Last Admin: 09/27/19 21:21 Dose: 0.4 mg Documented by: Assessment/Plan This patient was seen in conjunction with Destiny DIAZ. I have independently interviewed and examined the patient and reviewed pertinent history, examination findings, laboratory and plan of management. I have reviewed the note and agree with the documented findings with the few additional points. In brief, patient is admitted for near syncope/dizziness most probably related to pulses bigeminy. EKG and echo from [facility] [place] reviewed. It seems patient has PVCs and pulses bigeminy since 2016. Echo from October 2016 shows hyperdynamic LV with a stage I diastolic dysfunction. EF 73%. Moderate septal LVH. LA mildly dilated. Discussed with composer teaching artist. Started on metoprolol 12.5 mg twice a daily. 2D echo tomorrow a.m. Patient need 24-hour Holter monitor on discharge. Discontinue isosorbide, his home medication as there is no evidence of ischemia. The patient denies history of coronary artery disease or cardiac stents. Comorbidities: Hypertension: Blood pressure is controlled. Dyslipidemia: On statin. BPH and chronic constipation: Flomax and Proscar. On bowel regimen. I have discussed my assessment with Destiny DIAZ and orders have been reviewed. Code Visit Inpatient E&M: 35281 Subs Hosp L2
[2019-09-28] MEDS: Tamsulosin HCl 0.4 MG Capsule PO (21:23)
[2019-09-28] MEDS: Psyllium 1 PACKET PO (21:23)
[2019-09-28] MEDS: Atorvastatin Calcium 20 MG Tablet PO (21:23)
[2019-09-29] VITALS (7 sets, daily range): BP systolic 112–123; BP diastolic 60; PULSE 68–71; RESP 16; TEMP 36.6–36.8; O2SAT 94–95
[2019-09-29] MEDS: Aspirin E.C. 81 MG Tablet PO (09:15)
[2019-09-29] MEDS: Finasteride 5 MG Tablet PO (09:15)
[2019-09-29] MEDS: Enoxaparin 40 MG/0.4 ML Syringe SC (09:15)
[2019-09-29] MEDS: Metoprolol Tartrate 25 MG Tablet PO (09:15)
--- NOTE | 2019-09-29 11:20 | CASEMGMT ---
JEREMIE DASILVA NOTE: To room to talk with pt. Pt sitting up in recliner chair in room. A/Ox3. Reviewed SALINAS form with pt. Denies having any questions. SALINAS form signed by pt, copy made and placed on chart, and original given to pt. Armen CASTELLANOS RN CM
--- NOTE | 2019-09-29 12:13 | DCINST_ITS ---
- Discharge Diagnoses Current Active Problems: Current Active and Chronic Problems Near syncope (Acute) You will use the following diet at home:: Cardiac Discharge Activity: Return to Normal Activity Call your doctor if you observe: Shortness of breath, Dizziness, Fainting spells, Chest pain Allergies/Adverse Reactions: Allergies amoxicillin trihydrate [From Augmentin] Allergy (Verified 09/27/19 18:19) Other syncope atenolol Allergy (Verified 09/27/19 11:55) Other clindamycin Allergy (Verified 09/27/19 11:55) Hives potassium clavulanate [From Augmentin] Allergy (Verified 09/27/19 11:55) Unknown Medications to take at Discharge Finasteride [Proscar] 5 mg PO DAILY 04/05/15 Atorvastatin Calcium [Lipitor] 20 mg PO QHS 02/14/17 Nitroglycerin (INPATIENT USE) [Nitrostat] 0.4 mg SUBLINGUAL Q5M PRN 02/14/17 Tamsulosin HCl [Flomax] 0.4 mg PO QHS 02/14/17 Cholecalciferol (Vitamin D3) [Vitamin D3] 2,000 unit PO DAILY 05/21/17 Aspirin E.C. [Ecotrin] 81 mg PO DAILY@0800 02/24/18 Psyllium Husk [Metamucil] 660 gm PO DAILY 02/24/18 Meloxicam [Mobic] 15 mg PO BREAKFAST 09/27/19 Metoprolol Tartrate [Lopressor (beta sherman)] 25 mg PO BID #60 tab 09/29/19 The following prescriptions were given: Metoprolol Tartrate [Lopressor (beta sherman)] 25 mg PO BID #60 tab Transmission Status: Pending to [facility] Orders to be completed after discharge: Cardiac Holter Monitor, Set-Up [[facility]] Location: None Selected Primary Care Physician: Lamin Guo III, MD [Primary Care Provider] - Please follow up with your Primary Care Physician in: 1 Week Test Results: Test results from this visit will be discussed in further detail at your follow- up appointment, if applicable. Please Follow Up With: Edmundo Arrieta MD When: 1 Week, may see MEDICAL GENETICS DIRECTOR/PA Proposed Discharge Date: 09/29/19
--- NOTE | 2019-09-29 12:26 | DS.PCM_ITS ---
<Destiny Hay - Last Filed: 09/29/19 14:25> Discharge Date and Diagnosis Date of Admission: 09/27/19 Date of Discharge: 09/29/19 - Primary Discharge Diagnosis Active and Suspected Problems 1. Frequent PVCs, bigeminy 2. Near syncope 3. Hypertension 4. Hyperlipidemia 5. Chronic constipation 6. BPH - Secondary Discharge Diagnosis Chronic Problems Gout (Chronic) HLD (hyperlipidemia) (Chronic) BPH (benign prostatic hyperplasia) (Chronic) Lymphoma (Chronic) Constipation (Chronic) Hospital Course and Treatment Imaging Results: Diagnostic Data Brain CT 09/27/19 12:10 IMPRESSION: Chronic involutional changes of the brain. Electronically Signed: Sarath Rodriguez DO at 13:56 EST Tel , Service support , Chest X-Ray 09/27/19 12:25 IMPRESSION: No acute cardiopulmonary disease. Electronically Signed: Sarath Rodriguez DO at 13:33 EST Tel , Service support , Operations: None Procedures: 2-D Echocardiogram Summary of Care Provided: The patient is a 84 year old M admitted 09/27/2018 due to near syncope. 1. Near syncope- cardiology consulted. Telemetry demonstrates premature ventricular complexes, bigeminy. Continue metoprolol 25 mg twice daily. Echocardiogram demonstrates an EF of 75%, stage II diastolic dysfunction, pulmonary artery systolic pressure 54 mmHg, mild mitral valve insufficiency. 24-hour Holter monitor at discharge. Follow-up with Dr. Arrieta in 1 week. 2. Hypertension-stable, continue metoprolol regimen. Home isosorbide regimen discontinued given no history of CAD. 3. Hyperlipidemia-continue statin regimen. 4. Chronic constipation-recurrent bowel surgery for obstruction, status post mesh placement. Continue home bowel regimen. 5. BPH-continue Flomax, Proscar. General: Alert, Oriented x3, Cooperative HEENT: Atraumatic, PERRLA, EOMI, Normocephalic Neck: Supple, No JVD, Negative Carotid Bruits Lungs: Clear to auscultation, Normal air movement Cardiovascular: Regular rate, Regular Rhythm, Normal S1, Normal S2, No murmurs, Premature ectopic beats Abdomen: Bowel Sounds Present, Soft, Non Tender, Non-Distended Extremities: No clubbing, No cyanosis, No edema, Capillary Refill Less than 3 Seconds Skin: No rashes, No breakdown Musculoskeletal: No Tenderness to Palpation of Joints or Extremities Neurological: Cranial nerves II-XII grossly intact, Neuro grossly intact Psych/Mental Status: Normal Affect, Appropriate Patient seen and examined prior to discharge. Physical assessment as noted above. Patient is stable for discharge with follow up recommendations as noted above. This patient was seen by NIDA Dai under the supervision of Dr. Chapman. - Physical Exam Vitals/I&O's: Vital Signs Temp Pulse Resp BP Pulse Ox 97.9 F 70 16 123/60 H 94 09/29/19 09:14 09/29/19 10:54 09/29/19 09:14 09/29/19 09:15 09/29/19 09:14 Oxygen Delivery Method Room Air Weight: 148 lb 9.465 oz Body Mass Index (BMI) 25.4 Intake and Output for Last 24 Hours 09/27/19 09/28/19 09/29/19 23:59 23:59 23:59 Intake Total 1522.5 / 1522.5 1590 / 1590 440 / 440 Output Total 950 / 950 825 / 825 875 / 875 Balance 572.5 / 572.5 765 / 765 -435 / -435 Current Medications Acetaminophen (Tylenol) 650 mg PO Q6H PRN PRN PRN Reason: Pain Score 1-3/Temp > 100.7 F Albuterol Sulfate (Ventolin Aerosols) 2.5 mg INHALATION Q2H PRN PRN PRN Reason: SOB/Wheezing Aspirin (Ecotrin) 81 mg PO DAILY@0800 [facility] Last Admin: 09/29/19 09:15 Dose: 81 mg Documented by: Atorvastatin Calcium (Lipitor) 20 mg PO QHS [facility] Last Admin: 09/28/19 21:23 Dose: 20 mg Documented by: Enoxaparin Sodium (Lovenox) 40 mg SC DAILY [facility] Last Admin: 09/29/19 09:15 Dose: 40 mg Documented by: Finasteride (Proscar) 5 mg PO DAILY [facility] Last Admin: 09/29/19 09:15 Dose: 5 mg Documented by: Glucagon () 1 mg IM .X1 PRN PRN Reason: Hypoglycemia Metoprolol Tartrate (Lopressor (Beta Gideon)) 25 mg PO BID [facility] Last Admin: 09/29/19 09:15 Dose: 25 mg Documented by: Morphine Sulfate () 2 mg IV Q3H PRN PRN PRN Reason: Pain Score 6-10/10 Nitroglycerin (Nitrostat) 0.4 mg SUBLINGUAL Q5M PRN PRN Reason: Chest Pain Oxycodone HCl (Oxyir) 5 mg PO Q4H PRN PRN PRN Reason: Pain Score 4-5/10 Psyllium Hydrophilic Mucilloid (Metamucil) 1 packet PO DAILY [facility] Last Admin: 09/29/19 09:05 Dose: Not Given Documented by: Senna/Docusate Sodium (Senokot-S, Helena-Colace) 2 tablet PO BID PRN PRN PRN Reason: Constipation Sodium Chloride () 10 - 40 ml IV UD PRN PRN Reason: SALINE FLUSH Tamsulosin HCl (Flomax) 0.4 mg PO QHS [facility] Last Admin: 09/28/19 21:23 Dose: 0.4 mg Documented by: Discharge Diet: Low fat/ Low Cholesterol Discharge Activity: Return to Normal Activity Call your doctor if you observe: Shortness of breath, Dizziness, Fainting spells, Chest pain Home Medications: Medications to take at Discharge Finasteride [Proscar] 5 mg PO DAILY 04/05/15 Atorvastatin Calcium [Lipitor] 20 mg PO QHS 02/14/17 Nitroglycerin (INPATIENT USE) [Nitrostat] 0.4 mg SUBLINGUAL Q5M PRN 02/14/17 Tamsulosin HCl [Flomax] 0.4 mg PO QHS 02/14/17 Cholecalciferol (Vitamin D3) [Vitamin D3] 2,000 unit PO DAILY 05/21/17 Aspirin E.C. [Ecotrin] 81 mg PO DAILY@0800 02/24/18 Psyllium Husk [Metamucil] 660 gm PO DAILY 02/24/18 Meloxicam [Mobic] 15 mg PO BREAKFAST 09/27/19 Metoprolol Tartrate [Lopressor (beta gideon)] 25 mg PO BID #60 tab 09/29/19 Following Prescrptions Were Given to Patient: Metoprolol Tartrate [Lopressor (beta gideon)] 25 mg PO BID #60 tab Transmission Status: Received by [facility] Other Amb Orders: Cardiac Holter Monitor, Set-Up [[facility]] Location: None Selected Primary Care Physician: Lamin Guo III, MD [Primary Care Provider] - Please follow up with your Primary Care Physician in: 1 Week Please Follow Up With: Edmundo Arrieta MD When: 1 Week, may see [employer] ENGINEER/PA Disposition: Home Minutes spent on discharge:: 35 Patient Condition:: Stable Medical Necessity - Tobacco Use Smoking Status: Never smoker Meaningful Use Info Meaningful Use Diagnoses (Choose all that apply): None applicable <Charles Chapman F - Last Filed: 09/29/19 14:35> Discharge Date and Diagnosis - Secondary Discharge Diagnosis Chronic Problems Gout (Chronic) HLD (hyperlipidemia) (Chronic) BPH (benign prostatic hyperplasia) (Chronic) Lymphoma (Chronic) Constipation (Chronic) Hospital Course and Treatment Summary of Care Provided: The patient is a 84 year old M [] - Physical Exam Vitals/I&O's: Vital Signs Temp Pulse Resp BP Pulse Ox 97.9 F 70 16 123/60 H 94 09/29/19 09:14 09/29/19 10:54 09/29/19 09:14 09/29/19 09:15 09/29/19 09:14 Oxygen Delivery Method Room Air Weight: 148 lb 9.465 oz Body Mass Index (BMI) 25.4 Intake and Output for Last 24 Hours 09/27/19 09/28/19 09/29/19 23:59 23:59 23:59 Intake Total 1522.5 / 1522.5 1590 / 1590 440 / 440 Output Total 950 / 950 825 / 825 875 / 875 Balance 572.5 / 572.5 765 / 765 -435 / -435 Current Medications Acetaminophen (Tylenol) 650 mg PO Q6H PRN PRN PRN Reason: Pain Score 1-3/Temp > 100.7 F Albuterol Sulfate (Ventolin Aerosols) 2.5 mg INHALATION Q2H PRN PRN PRN Reason: SOB/Wheezing Aspirin (Ecotrin) 81 mg PO DAILY@0800 [facility] Last Admin: 09/29/19 09:15 Dose: 81 mg Documented by: Atorvastatin Calcium (Lipitor) 20 mg PO QHS [facility] Last Admin: 09/28/19 21:23 Dose: 20 mg Documented by: Enoxaparin Sodium (Lovenox) 40 mg SC DAILY [facility] Last Admin: 09/29/19 09:15 Dose: 40 mg Documented by: Finasteride (Proscar) 5 mg PO DAILY [facility] Last Admin: 09/29/19 09:15 Dose: 5 mg Documented by: Glucagon () 1 mg IM .X1 PRN PRN Reason: Hypoglycemia Metoprolol Tartrate (Lopressor (Beta Gideon)) 25 mg PO BID [facility] Last Admin: 09/29/19 09:15 Dose: 25 mg Documented by: Morphine Sulfate () 2 mg IV Q3H PRN PRN PRN Reason: Pain Score 6-10/10 Nitroglycerin (Nitrostat) 0.4 mg SUBLINGUAL Q5M PRN PRN Reason: Chest Pain Oxycodone HCl (Oxyir) 5 mg PO Q4H PRN PRN PRN Reason: Pain Score 4-5/10 Psyllium Hydrophilic Mucilloid (Metamucil) 1 packet PO DAILY [facility] Last Admin: 09/29/19 09:05 Dose: Not Given Documented by: Senna/Docusate Sodium (Senokot-S, [place]-Colace) 2 tablet PO BID PRN PRN PRN Reason: Constipation Sodium Chloride () 10 - 40 ml IV UD PRN PRN Reason: SALINE FLUSH Tamsulosin HCl (Flomax) 0.4 mg PO QHS [facility] Last Admin: 09/28/19 21:23 Dose: 0.4 mg Documented by: Code Visit Addendum: Dr. Chapman I personally examined the patient and reviewed the chart. I agree with the above. 84-year-old male who presented to the ER with dizziness, weakness and blurry vision. Is felt to have near syncope with episodes of PVCs on telemetry. Serial troponins were obtained and were unremarkable. Cardiology was consulted, and an echo was obtained which demonstrated a normal EF with stage II diastolic dysfunction. His metoprolol was continued however given the fact that he has no history of CAD, his isosorbide was discontinued per cardiology recommendations. He will need to follow-up with cardiology in 1 week and his PCP in 3 to 5 days. He is feeling currently back to baseline and would like to go home. Risks and benefits of discharge were discussed and he expressed understanding. OBSV E&M: 32645 Observation care discharge
--- NOTE | 2019-09-29 13:35 | PHA.DC.MC ---
Pharmacy Service has performed discharge medication reconciliation and counseling for this patient. 1. METOPROLOL TARTRATE 25MG PO BID The patient's discharge medication list was reviewed for discrepancies and discrepancies were resolved. Home Medications Finasteride [Proscar] 5 mg PO DAILY 04/05/15 Atorvastatin Calcium [Lipitor] 20 mg PO QHS 02/14/17 Nitroglycerin (INPATIENT USE) [Nitrostat] 0.4 mg SUBLINGUAL Q5M PRN 02/14/17 Tamsulosin HCl [Flomax] 0.4 mg PO QHS 02/14/17 Cholecalciferol (Vitamin D3) [Vitamin D3] 2,000 unit PO DAILY 05/21/17 Aspirin E.C. [Ecotrin] 81 mg PO DAILY@0800 02/24/18 Psyllium Husk [Metamucil] 660 gm PO DAILY 02/24/18 Meloxicam [Mobic] 15 mg PO BREAKFAST 09/27/19 Metoprolol Tartrate [Lopressor (beta sherman)] 25 mg PO BID #60 tab 09/29/19 The patient was counseled on the following discharge medications and changes in medications for homegoing were reviewed. The Reason for Use, instructions for use, and potential side effects were reviewed for all new medications. The patient's questions regarding all of their medications were answered. The patient was able to verbally demonstrate an understanding of their discharge medications.
== END 2019-09-29 12:20 | disposition home or self-care (01) ==
LOC: ED 12:38 → PCU 14:29
PROVIDERS: Admitting Provider Internal Medicine; Emergency Provider Emergency Medicine; Family Provider Family Medicine; PCP Family Medicine; Referring Provider Internal Medicine; Visit Provider Family Medicine
DX: R55 Syncope and collapse (principal); I49.3 Ventricular premature depolarization; N40.0 Benign prostatic hyperplasia without lower urinary tract symptoms; R00.0 Tachycardia, unspecified; E78.5 Hyperlipidemia, unspecified; I10 Essential (primary) hypertension; K59.09 Other constipation; H53.8 Other visual disturbances; M10.9 Gout, unspecified; Z79.899 Other long term (current) drug therapy; Z79.82 Long term (current) use of aspirin; Z85.72 Personal history of non-Hodgkin lymphomas
CPT/HCPCS: 36415; 70450; 71045; 80048; 81001; 83735; 84443; 84484; 85025; 93005; 93225; 93226; 93306; 96360; 96361; 96372; 97161; 97165; 99218; 99251; 99285; J7030; G0378; G0463

== ENCOUNTER → 2019-09-29 13:07 | Outpatient (CLI) | payer MEDICARE, OTHER, SELFPAY ==
[2019-09-27 15:12] VITALS: BMI 25.4
== END ==
PROVIDERS: Family Provider Family Medicine; PCP Family Medicine; Visit Provider Nurse Practitioner Family
DX: R00.0 Tachycardia, unspecified (principal)
CPT/HCPCS: 93225; 93226

== ENCOUNTER 2020-04-17 16:59 | Emergency (ER) | payer MEDICARE, OTHER, SELFPAY ==
[2019-10-24 13:17] VITALS: BMI 25.7
[2020-04-17 17:00] VITALS: BP 154/79; PULSE 52; RESP 16; TEMP 36.3; O2SAT 96; BMI 24.8
--- NOTE | 2020-04-17 17:15 | ED.DCSUM_ITS ---
History of Present Illness Chief Complaint: Abd Pain Detail of Chief Complaint: Pain, distention, have not had a good bowel movement since Onset: Days Context: Sudden Onset - Diarrhea yesterday and today after using mag citrate. Timing: - - Read HPI Quality: Bloated and distended Location: Abdomen generalized Current Severity: Mild Maximum Severity: Moderate Worsened by: Nothing Relieved by: Nothing Associated Symptoms: Diarrhea since taking mag citrate Narrative: Patient is an 85-year-old male with history of diverticulosis diverticulitis who had a bowel obstruction in 2000 due to traumatic injury and the year 1999. He had a perforated viscus due to trauma and subsequent adhesions with bowel obstruction requiring lysis of adhesions. Patient denies nausea or vomiting. Patient does report feeling bloated and distended. He was seen at urgent care yesterday and instructed to take a bottle of mag citrate. He had 1 loose stool after the bottle of mag citrate. He took additional mag citrate today and had another loose watery stool. Prior to this he denies change in color, consistency or caliber of his stool. His last reported normal bowel movement was . He then states he had some trouble before. Patient is not a good informant. He denies fever, chills night sweats. He denies cough or shortness of breath. He denies intolerance to greasy or fried foods. He denies urologic symptoms. 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 Past Medical History - Allergies and Home Meds Allergies/Adverse Reactions: Allergies amoxicillin trihydrate [From Augmentin] Allergy (Verified 04/17/20 17:02) Other syncope atenolol Allergy (Verified 04/17/20 17:02) Other clindamycin Allergy (Verified 04/17/20 17:02) Hives potassium clavulanate [From Augmentin] Allergy (Verified 04/17/20 17:02) Unknown Primary Care Physician: Lamin Guo III, MD [Primary Care Provider] - Prior records reviewed: Yes Surgical History: - - back surgery Lives: Alone Smoking Status: Never smoker Alcohol: None Drugs: None - Family History Maternal Family History: Family History (Last Reviewed 10/24/19 @ 13:[address] Edmundo Arrieta MD) Mother Heart disease Brother Cancer Family History: Reports: Heart Disease Sibling Family History: Family History (Last Reviewed 10/24/19 @ 13:[address] Edmundo Arrieta MD) Mother Heart disease Brother Cancer Family History: Reports: Cancer - prostate Review of Systems General: Denies: Chills, Fever, Malaise ENT: Denies: Rhinorrhea, Sore throat Cardiovascular: Denies: Chest pain, Palpitations Respiratory: Denies: Dyspnea, Cough, Dyspnea on exertion Gastrointestinal: Reports: Abdominal pain, Constipation. Denies: Nausea, Vomiting, Diarrhea, Melena, Hematochezia, -, - Genitourinary: Denies: Dysuria, Hematuria, Frequency Musculoskeletal: Denies: Myalgias, Arthralgias, Neck pain, Back pain, Swelling, Extremity Pain, -, - Skin: Denies: Rash, Wounds Neurological: Denies: Headache, Weakness, Numbness Endocrine: Denies: Polyuria, Polydipsia Hematologic: Denies: Easy bruising, Easy bleeding Physical Exam Vital Signs/Narrative: Vital Signs Temp Pulse Resp BP Pulse Ox 04/17/20 17:00 97.3 F L 52 L 16 154/79 H 96 Inital Vital Signs reviewed: Yes Abdomen: Soft, No masses, Tender, Hypoactive bowel sounds, - - Abdomen is tender in tympanitic. There is no abdominal bruit or pulsatile mass. There is a will healed midline supra and infra umbilical incision. Negative for: Nontender, Nondistended, Normal bowel sounds, Guarding, Rebound tenderness, Hyperactive bowel sounds, Hepatomegaly, Splenomegaly, Mass, Pulsatile mass Rectal: - - Remanence of hemorrhoids. No palpable mass. No fissures or fistulas. Material in rectal vault is watery and brown in color. There is no evidence of impaction. Back: Nontender, Normal Inspection Extremities: Nontender, No edema Skin: Normal color, No rash Neurological: Alert, Oriented x3, Cranial nerves II-XII grossly intact, Normal Strength, Normal Sensation Psychological: Depressed Diagnostic/Tx/Re-eval Chest X-Ray - ED: Read by ED Physician, - - X-ray of the abdomen was obtained. There are chronic changes of the lung parenchyma. Cardiac silhouette and size normal. The x-ray is slightly rotated. There is no acute abnormality osseous structures. The abdominal series reveals no evidence of pneumoperitoneum. There is nonspecific gas pattern with no dilation of the small or large bowel and no edema to the wall. There is increased air. There is no evidence of obstruction. Impressions Acute Abdomen Series 04/17/20 17:25 IMPRESSION: Ileus Electronically Signed: Michael Dyson MD at 17:55 EDT , Service support , 04/17/20 17:25 Acute Abdomen Inc Chest [RAD] Stat Laboratory Results 04/17/20 04/17/20 17:20 17:20 WBC 5.0 RBC 4.66 Hgb 14.8 Hct 45.7 MCV 98.1 H MCH 31.8 MCHC 32.4 RDW Std Deviation 46.2 H RDW Coeff of Raul 12.9 Plt Count 203 MPV 10.0 Immature Gran % (Auto) 0.200 Neut % (Auto) 70.7 H Lymph % (Auto) 16.7 L [place] % (Auto) 9.4 Eos % (Auto) 2.4 Baso % (Auto) 0.6 Absolute Neuts (auto) 3.5 Absolute Lymphs (auto) 0.83 Nucleated RBC % 0 Sodium 142 Potassium 4.4 Chloride 109 H Carbon Dioxide 27.0 Anion Gap 6 BUN 21 H Creatinine 0.98 Estim Creat Clear Calc 49.68 Est GFR (MDRD) Af Amer 93 Est GFR (MDRD) Non-Af 77 BUN/Creatinine Ratio 21.3 H Glucose 91 Calcium 9.5 CBC is unremarkable with no bandemia. Basic metabolic panel is unremarkable wit h a normal creatinine and GFR. Radiologist interpretation is ileus. Patient does not have ileus and she has diarrhea. - Medical Decision Making With abdominal pain distention and prior history of bowel obstruction will obtain abdominal series. Doubt abdominal obstruction since he is now having diarrhea and had a watery stool yesterday and a watery stool today. There is no evidence of encopresis based on rectal exam. Will obtain x-ray to determine if there is a fecal impaction that is beyond digital exam. Will obtain CBC to assess white count H&H as well as electrolyte panel. ED Disposition - Plan for ED Patient: Disposition: Home or Assisted Living Diagnosis: Generalized colicky abdominal pain, Diarrhea due to laxative abuse Instructions: ED Unknown Causes of Abdominal Pain Male Referrals: Lamin Guo III, MD [Primary Care Provider] - 3-5 Days if not improving
--- NOTE | 2020-04-17 17:25 | RAD_ITS ---
STUDY: X-RAY - ACUTE ABDOMINAL SERIES REASON FOR EXAM: Male, 85 years old. abdominal pain and bloating, Hx of obstruction in past TECHNIQUE: Single view of the chest. Supine, and erect view(s) of the abdomen were obtained. COMPARISON: September 27, 2019 chest x-ray FINDINGS: The lungs are clear and expanded. Normal size heart. Normal mediastinum and isiah. Normal visualized pulmonary arteries. Normal visualized aortic arch and descending thoracic aorta. Multiple air-fluid levels throughout the small bowel. The soft tissue structures of the abdomen and pelvis are unremarkable. Normal visualized osseous structures. RAD/Acute Abdomen Inc Chest IMPRESSION: Ileus Electronically Signed: Michael Dyson MD at 17:55 EDT , Service support ,
[2020-04-17 17:34] LABS: Absolute Lymphocyte Count 0.83 X10^3/uL (0.83-4.51); Absolute Neutrophil Count 3.5 X10^3/uL (2.0-7.7); Basophil# 0.03 X10^3/uL; Basophil% 0.6 % (0-1); Eosinophil# 0.12 X10^3/uL; Eosinophils% 2.4 % (0-5); Hematocrit 45.7 % (40-54); Hemoglobin 14.8 g/dL (13.0-16.5); Lymphocyte # 0.83 X10^3/ul (4.0); Lymphocyte % 16.7 % (19-41); Mean Corp Hgb Conc 32.4 g/dL (32-36); Mean Corpuscular Hgb 31.8 pg (27.0-32.0); Mean Corpuscular Volume 98.1 fL (80-94); Monocyte# 0.47 X10^3/uL; Monocyte% 9.4 % (0-10); NRBC Flagged by Analyzer 0 % (0-5); Neutrophil # 3.52 X10^3/uL (2.7-7.7); Neutrophil % 70.7 % (47-70); Platelet Count 203 K/mm3 (150-450); RBC Distribution Width CV 12.9 % (11.6-14.6); RBC Distribution Width SD 46.2 fl (35.1-43.9); Red Blood Count 4.66 M/mm3 (4.6-6.2)
[2020-04-17 17:44] LABS: Anion Gap 6 (5-15); BUN 21 mg/dL (7-18); BUN/Creat Ratio 21.3 RATIO (10-20); Calcium,Total 9.5 mg/dL (8.5-10.1); Chloride 109 mmol/L (98-107); Creatinine, Serum 0.98 mg/dL (0.70-1.30); EST Glomerular Filtration Rate 77 mL/min (>60); Est Glom Filt Rate - Afr Amer 93 mL/min (>60); Estimated Creatinine Clearance 49.68 ml/min; Glucose 91 mg/dL (74-106); Potassium 4.4 mmol/L (3.5-5.1); Sodium Level 142 mmol/L (136-145)
[2020-04-17 19:08] VITALS: BP 125/69; PULSE 56; RESP 16; O2SAT 96
--- NOTE | 2020-04-17 19:09 | ED.RN ---
REVIEWED D/C INSTRUCTIONS, FOLLOW UP CARE, AND S/S THAT WOULD WARRANT A RETURN TO THE ED WITH PT. PT VERBALIZED AN UNDERSTANDING AND DENIES FURTHER QUESTIONS FOR THIS RN. PT SKIN P/W/D, RESP EVEN AND UNLABORED, PT A&O X 3, NO DISTRESS NOTED. PT AMBULATED OUT OF ED, GAIT STEADY.
--- OUTSIDE RECORDS SUMMARY | 2020-08-31 19:36 | XMS RPT_ITS | CCD ---
:1935 External Reference #:[id number] Author Organization [facility] Care Team Providers Name Role Phone Damon Guo Primary Care Provider Allergies Reported Allergen Reaction(s) Severity Date of Onset Location Amoxicillin / Rash 12-26-2005 - [place] [facility] Clavulanate ([id number]) Atenolol Other: See Comments 12-26-2005 - [place] ([id number]) Clindamycin Swelling 07-10-2017 - [place] [facility] (65913) Medications Medication Name Sig Date Prescriber Location Aspirin aspirin, enteric coated [facility] ([id number]) (ASPIRIN, ENTERIC COATED) 81 mg EC tablet Indications: B-cell lymphoma of extranodal site (HCC) , Bladder neck obstruction , Benign prostatic hyperplasia, unspecified whether lower urinary tract symptoms present Take 81 mg by mouth every other day. 0 Active aspirin, enteric coated (ASPIRIN, ENTERIC [facility] Pr ovider [facility] (51772) COATED) 81 mg EC tablet Indications: B-cell lymphoma of extranodal site (HCC) , Bladder neck obstruction , Benign prostatic hyperplasia, unspecified whether lower urinary tract symptoms present Take 81 mg by mouth once daily. 0 Active Comment: Take 81 mg by mouth once huber ly. Take 81 mg by mouth every ot her day. Cholecalciferol Cholecalciferol, Vitamin 05-03-2017 Lashawn Jose [facility] D3, 2,000 unit cap Take 1 (4 4961) tablet by mouth once daily. 30 capsule 12 05/03/2017 Active Comment: Take 1 tablet by mouth once daily. Finasteride finasteride 06-19-2019 - Carol Seth) [facility] (PROSCAR) 5 mg 08-03-2020 [facility] (71161) tablet Take 1 tablet by mouth once daily. 90 tablet 3 08/03/2020 Active Comment: Take 1 tablet by mouth once daily. TAKE 1 TABLET BY MOUTH EVERY DAY Isosorbide isosorbide mononitrate ER 06-06-2019 Lashawn Ashby [facility] (IMDUR) 30 mg 24 hr tablet ( 77386) Indications: Angina of effort (HCC) Take 1 tablet by mouth once daily. 90 tablet 3 06/06/2019 Active Comment: Take 1 tablet by mouth once daily. magnesium citrate magnesium citrate 04-16-2020 Dest[facility] ([facility]) [facility] solution Drink 1/3 of [place] (89698 ) bottle, wait 4hrs for results. If no stool, drink next 1/3 bottle. Wait 4hrs. No results, then drink last 1/3 of bottle. For severe constipation. 295 mL 0 04/16/2020 Active Comment: Drink 1/3 of bottle, wait 4h rs for results. If no stool, drink next 1/3 bottle. Wait 4hrs. No result s, then drink last 1/3 of bottle. For severe constipation. meloxicam meloxicam (MOBIC) 15 10-23-2019 - [facility] mg tablet Indications: 08-16-2020 (4419 5) Acute pain of right knee Take 1 tablet by mouth once daily. Take with food. 30 tablet 5 08/16/2020 Active Comment: Take 1 tablet by mouth once daily. Take with food. Metoprolol METOPROLOL TARTRATE ORAL Take 1 [facility] Provi [facility] (15660) tablet by mouth twice daily. 0 Active METOPROLOL TARTRATE ORAL Take 1 tablet by Ccf Pr [facility] (04274) mouth twice daily. 0 Active METOPROLOL TARTRATE ORAL Take by mouth. 0 [facility] Pr [facility] (63906) Active METOPROLOL TARTRATE ORAL Take by mouth. 0 [facility] Pr [facility] (65388) Active Comment: Take by mouth. Take 1 tablet by mouth twice daily. POLYETHYLENE GLYCOL polyethylene glycol 04-16-2020 Dest[facility] ([facility]) [facility] [id number] (MIRALAX) 17 [place]ado (18648) gram packet Take 1 Packet by mouth once daily. 14 Packet 0 04/16/2020 Active Comment: Take 1 Packet by mouth once daily. PSYLLIUM HUSK (METAMUCIL PSYLLIUM HUSK (METAMUCIL [facility]cf Provider [facility] ORAL) ORAL) Take 1 teaspoonful (44 195) by mouth once daily. 0 Active PSYLLIUM HUSK (METAMUCIL ORAL) Take 1 [facility] Provid [facility] (95356) teaspoonful by mouth once daily. 0 Active PSYLLIUM HUSK (METAMUCIL ORAL) Take 1 [facility] Provid [facility] (85879) teaspoonful by mouth once daily. 0 Active PSYLLIUM HUSK (METAMUCIL ORAL) Take 1 [facility] Provid [facility] (18225) teaspoonful by mouth once daily. 0 Active Comment: Take 1 teaspoonful by mouth once daily. tamsulosin tamsulosin ER (FLOMAX) 0.4 07-23-2020 Carol Seth) C [facility] mg Indications: BPH with Estrella (44 195) obstruction/lower urinary tract symptoms TAKE 1 CAPSULE BY MOUTH EVERYDAY AT BEDTIME 90 capsule 3 07/23/2020 Active Comment: TAKE 1 CAPSULE BY MOUTH EVER YDAY AT BEDTIME Problems Active Problems Category Problem Name Status Date Location Cardiac dysrhythmias Premature atrial Active 08-14-2018 - [facility] contraction (08391) Coagulation and Secondary Active 12-25-2016 - [facility] inic hemorrhagic disorders thrombocytopenia (4 4195) 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 - [facility] anemia disease (42503) 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-2016 - [facility] blood cells (32081) Disorders of lipid Hyperlipidemia Active 08-14-2018 - [facility] metabolism (16626) Hyperplasia of Benign prostatic Active 12-02-2007 - [facility] prostate hypertrophy with outflow (44 195) obstruction Non-Hodgkin`s lymphoma B-cell lymphoma Active 02-22-2017 - [facility] (clinical) (07338) Other diseases of Bladder neck obstruction Active 12-02-2007 - [facility] bladder and urethra (41557) Other non-traumatic Knee pain Active [facility] joint disorders (83483) Past or Other Problems Category Problem Name Status Date Location Other diseases of Peripheral venous Completed 05-03-2017 - [facility] veins and lymphatics insufficiency (32565 ) Results Result Name Value Range Unit Interpretation Flag Date Location obsolete on 2020-07 OBSOLETE Refill (FAMPWS) Normal 08-16-2020 Dada veland [facility] [place]OCK JOSUE GEORGES ([id number]) 1935 M [facility] Time Provider Department ([id number]) 08/16/20 LASHAWN GUO III During your visit today, we recorded the following informati on about you: Kristina Coates Ma 08/16/2020 1:29 PM Signed Patient has been identified by name and date of : Yes Pending Prescriptions Disp Refills MELOXICAM 15 MG TABLET 30 tablet 5 Sig: Take 1 tablet by mouth once daily. Take with food. CHAU: No RX INSTRUCTIONS: Patient aware RX will be sent to pharmacy. No need to notify patient. Kristina Coates Ma Last ov: 09/2019 Last refill; 10/2019 No appointment scheduled Allergies As of Date: 08/16/2020 Noted Allergy Reaction ATENOLOL 12/26/2005 14 - Other: See Comments Comments: dizzy AUGMENTIN (AMOXICILLIN-POT CLAVUL*12/26/2005 2 - Rash CLINDAMYCIN 07/10/2017 7 - Swelling Date Reviewed: 08/10/2020 Reviewed by: Diana Naylor - Fully Assessed Reason for Visit: Refill Request [94] Visit Diagnosis:Acute pain of right knee [M25.561] Order(s):meloxicam (MOBIC) 15 mg tabletT emil 1 tablet by mouth once daily. Take with food.Disp: 30 tabletRfl: 5 Prescriptions as of 08/16/2020 Sig: MELOXICAM 15 MG TABLET Take 1 tablet by mouth once d* FINASTERIDE 5 MG TABLET Take 1 tablet by mouth once d* TAMSULOSIN 0.4 MG CAPSULE TAKE 1 CAPSULE BY MOUTH EVERY* POLYETHYLENE GLYCOL 3350 17 G* Take 1 Packet by mouth once d * MAGNESIUM CITRATE ORAL SOLUTI* Drink 1/3 of bottle, wait 4hr * METOPROLOL TARTRATE ORAL Take 1 tablet by mouth twice * ISOSORBIDE MONONITRATE ER 30 * Take 1 tablet by mouth once d * Patient not taking: Reported on 10/02/2019 ASPIRIN 81 MG TABLET,DELAYED * Take 81 mg by mouth every oth * METAMUCIL ORAL Take 1 teaspoonful by mouth o* CHOLECALCIFEROL (VITAMIN D3) * Take 1 tablet by mouth once d * Problem List As Of Date 08/16/2020 Noted Resolved PAIN ABDOMEN GENERALIZED(Mesh recall) [R10.84] 04/09/2006 BOWEL OBSTRUCTION ADHESIONS [K56.50] 02/14/2007 02/12/2015 BPH with obstruction/lower urinary tract sympto*12/02/2007 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.0] 12/02/2007 Incisional hernia without mention of obstructio*06/08/2009 0 02/12/2015 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] 12/01/2016 0 05/09/2017 Lymphocytosis [D72.820] 12/25/2016 Thrombocytopenia, 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 Take with food. Medications Discontinued During This Encounter Prescriptions - meloxicam (MOBIC) 15 mg tablet (Discontinued) Take 1 tablet by mouth once daily. Take with food. Encounter Status:Closed by SATYA THRASHER MANAGER DECISION SUPPORT on 08/16/20 progress on 2020-07 PROGRESS HNO ID: [id number] Normal 08-10-2020 [facility] Author: Tr rodriguez ([id number]) Service: ? Author Type: Physician Type: Progress Notes Filed: 08/11/2020 8:47 AM Note Text: PATIENT NAME: Josue Wilkerson Jr. CLINIC NO: [id number]. ATTENDING PHYSICIAN: Tr Mills MD. DATE OF SERVICE: 08/10/2020. ?? DIAGNOSIS: Stage IV marginal zone lymphoma ? ?? HPI: 85-year-old elderly gentleman with history of hypertens ion and cardiomyopathy who presented with increasing chest discomfor t and fatigue for the last year. His chest discomfort improved with aspiri n and nitroglycerin. He was seen by cardiology, and Dr. Tsai not ed a macrocytic anemia with thrombocytopenia. Workup for the andres loblastic anemia was negative. ?? He had a stress test and echocardiogram which showed left ve ntricular hypertrophy, but no evidence of ischemia. Patient has been f eeling tired for the last year. Denies any weight loss or early satiety. Patient has no fever or chills or night sweats. He has no abdominal pain or jaundice. Patient has no cough or shortness of breath. Despite thrombo cytopenia he has no increased bleeding or bruising. He denied rectal blee ding or melena. His stool was heme negative. Patient had no previous blood transfusion or history of hepatitis. Patient has no headache s, increased lethargy, or neuropathy. He denies a history of alcohol or t obacco use. ?? Current treatment: Rituxan and cyclophosphamide/prednisone x 4 cycles ( 03/05/17-05/29/2017 ) >?Rituximab every 21 days x 2 additional cycles ?? Interim history: Mr. Wilkerson??has?no?new complaints. ?Patient h as no?chest discomfort, dizziness or palpitation.??He denies?fatigue, co ugh, or?shortness of breath. He denies fever, chills or night swe ats. ?no swelling glands, adenopathy or early satiety or weight loss. He has no clinical bleeding or bruising. ?? All medications AND allergies updated and reviewed by me. ?? REVIEW OF SYSTEMS: ?? CONSTITUTIONAL: No fevers, chills, nightsweats, unintended w eight loss or fatigue HEENT: Denies frequent or severe heaches, nasal congestion/s inus symptoms, problematic allergy problems.?Mild erythema and swelling in the maxillary region of his face. EYES: No diplopia or blurry vision. CARDIOVASCULAR: No chest pain, dyspnea, palpitations, orthop jona, PND, ankle edema. PULM: No dyspnea, unexplained cough. GI: No dysphagia/odynophagia, problematic reflux, constipati on, diarrhea, changes in stool habits, hematochezia, melena. : No new urinary complaints, including dysuria, gross brandon turia or pyuria. NEURO: No new balance problems, peripheral weakness/paresthe bertha or numbness of concern. MUSC-SKEL: No new joint pain, swelling, or erythema. PSY: No concerns regarding depression, anxiety or panic. INTEGUMENTARY: No new skin changes (rash, new or changing mo le, new growth) no increased bleeding or bruising. ?? PHYSICAL EXAMINATION: 85-year-old gentleman in no acute dist ress Performance status: 90% BP 132/84 Pulse 54 Temp (Src) 97.2 (Temporal) Wt 155 l b 8 oz (70.5kg) HEENT: Head is normocephalic, atraumatic. Sclerae white, com plexion pale PEERL. EOMs are intact. Oropharynx is benign. Several raised edges/borders skin lesions?on face. LYMPHATICS: There is no palpable adenopathy in the neck, sup raclavicular region, axillae, or groin. LUNGS: Lungs diminished breath sounds on bases. No wheezes o r rhonchi. HEART: Heart is irregular regular rhythm,PMI is nondisplaced . There is a scratchy apical systolic ejection murmur. No click is heard. Carotids are brisk without bruits. -JVD ABDOMEN: Soft and nontender, no ascites. no hepatosplenomega ly. EXTREMITIES: Are without edema. No petechiae or ecchymosis. NEUROLOGIC: Exam is physiologic ?? LABORATORY DATA:? Component Latest Ref Rng AND Units 08/10/2020 WBC 3.70 - 11.00 k/uL 5.78 RBC 4.20 - 6.00 m/uL 4.70 Hemoglobin 13.0 - 17.0 g/dL 15.0 Hematocrit 39.0 - 51.0 % 45.8 MCV 80.0 - 100.0 fL 97.4 MCH 26.0 - 34.0 pG 31.9 MCHC 30.5 - 36.0 g/dL 32.8 RDW-CV 11.5 - 15.0 % 13.2 Platelet Count 150 - 400 k/uL 209 MPV 9.0 - 12.7 fL 10.1 Neut% % 68.9 Abs Neut (ANC) 1.45 - 7.50 k/uL 3.97 Lymph% % 16.8 Abs Lymph 1.00 - 4.00 k/uL 0.97 (L) [place]% % 10.6 Abs [place] <0.87 k/uL 0.61 Eosin% % 2.8 Abs Eosin <0.46 k/uL 0.16 Baso% % 0.9 Abs Baso <0.11 k/uL 0.05 Nucleated Reds 0 /100 WBC 0.0 Absolute nRBC <0.01 k/uL <0.01 Diff Type Auto Diff Component Latest Ref Rng AND Units 08/10/2020 Protein, Total 6.3 - 8.0 g/dL 6.5 Albumin 3.9 - 4.9 g/dL 4.4 Calcium 8.5 - 10.2 mg/dL 9.5 Bilirubin, Total 0.2 - 1.3 mg/dL 0.5 Alkaline Phosphatase 38 - 113 U/L 82 AST 14 - 40 U/L 23 Glucose 74 - 99 mg/dL 90 BUN 9 - 24 mg/dL 23 Creatinine 0.73 - 1.22 mg/dL 1.00 Sodium 136 - 144 mmol/L 141 Potassium 3.7 - 5.1 mmol/L 5.5 (H) Chloride 97 - 105 mmol/L 105 CO2 22 - 30 mmol/L 27 Anion Gap 9 - 18 mmol/L 9 ALT 10 - 54 U/L 16 eGFR- >60 eGFR-All Other Races . 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 ?? Patient is doing well.??His complete blood count his normal, and he is asymptomatic ?? PLAN:? - Continue observation follow-up in?1 year. - Repeat CBC, CMP, LDH in?1 year - Flu shot today ? Tr Mills MD ld on 2020-08-10 LD 215 135-225 U/L Normal 08-10-2019 [facility] (73793) comp metabolic panel on 2020-08-10 Albumin [Mass/Vol] 4.4 3.9-4.9 g/dL Normal 08-10-2020 [facility] (86122) ALP [Catalytic 82 38-113 U/L Normal 08-10-2020 [facility] activity/Vol] [facility] (13514) ALT [Catalytic 16 10-54 U/L Normal 08-10-2020 [facility] activity/Vol] [facility] and (70268) Anion gap 9 9-18 mmol/L Normal 08-10-2020 [facility]Vol[facility] ([facility] AST [Catalytic 23 14-40 U/L Normal 08-10-2020 [facility] activity/Vol] [facility] and (29264) Bilirubin [Mass/Vol] 0.5 0.2-1.3 mg/dL Normal 0 [facility] (41030) Calcium [Mass/Vol] 9.5 8.5-10.2 mg/dL Normal 08-10-2020 [facility] (20033) Chloride [Moles/Vol] 105 97-105 mmol/L Normal 0 [facility] (64119) CO2 [Moles/Vol] 27 22-30 mmol/L Normal 08-10-2020 [facility] (34045) Creatinine 1.00 0.73-1.22 mg/dL Normal 08-10-2020 [facility] [Mass/Vol] [place] (30394) eGFR- Amer. >60 Normal 08-10-2020 [facility] (80404) GFR/1.73 sq M >60 mL/min/{1.73_m Normal 08-10-2020 [facility] predicted among 2} [facility] (16105) non-blacks MDRD (S/P/Bld) [Vol rate/Area] Comment: Result Comment: eGFR (Estima kiana GFR) Units of measure: mL/min/1.73 meters squared eGFR is derived from the ree xpressed MDRD Study equation using the following parameters: serum creatinine, age, gender and race. The creatinine assay has been calibrated to be traceable to [place]. An eGFR <60 mL/min/1.73m2 fo r >3 months is consistent with chronic kidney disease. Refer to KDOQI guidelines for clinical interpretation. In patients with unstable re nal function, e.g. those with acute kidney injury, the eGFR may not accurately reflect actual GFR. Glucose [Mass/Vol] 90 74-99 mg/dL Normal 08-10-2020 [facility] (88815) Comment: Result Comment: The [place] Diabetes Association (ADA) provides guidance for cutoff values for fasting glucose and random glucose. The ADA defines fasting as no caloric intake for at least 8 hours. Fas ting plasma glucose results between 100 to 125 mg/dL indicate increased risk for diabetes (prediabetes). Fasting plasma glucose resul ts greater than or equal to 126 mg/dL meet the criteria for diagnosis of diabetes. In the absence of unequivocal hyperglycemia, results should be confirmed by repeat testing. In a patient with classic s ymptoms of hyperglycemia or hyperglycemic crisis, random plasma glucose results greater than or equal to 200 mg/dL meet the criteria for diagnosis of diabetes. Reference: Standards of [facility] Care in Diabetes 2016, [place] Diabetes Association. Diabetes Care. 2016.39(Suppl 1). Potassium [Moles/Vol] 5.5 3.7-5.1 mmol/L High 08-10-20 [facility] (53649) Protein [Mass/Vol] 6.5 6.3-8.0 g/dL Normal 08-10-2020 [facility] (88416) Sodium [Moles/Vol] 141 136-144 mmol/L Normal 08-10-2020 [facility] (39963) Urea nitrogen [Mass/Vol] 23 9-24 mg/dL Normal 08-10 [facility] (10599) cnovsp on 2020-07-21 2 CNOVSP Visit (SP) Office (CHRISTY) Normal [facility] JOSUE WILKERSON JR ([id number]) 1935 M [place] Date Time Provider Department (32725) 08/10/20 11:30 AM TR MILLS During your visit today, we recorded the following informati on about you: Temperature Pulse Blood pressure Weight 97.2 degrees 54/minute 132/84 70.5 kg Tr Mills MD 08/11/2020 8:47 AM Signed PATIENT NAME: Josue Wilkerson Jr. CLINIC NO: [id number]. ATTENDING PHYSICIAN: Tr Mills MD. DATE OF SERVICE: 08/10/2020. ?? DIAGNOSIS: Stage IV marginal zone lymphoma ? ?? HPI: 85-year-old elderly gentleman with history of hypertens ion and cardiomyopathy who presented with increasing maynor st discomfort and fatigue for the last year. His chest dis comfort improved with aspirin and nitroglycerin. He was seen by cardiology, and Dr. Tsai noted a macrocytic an emia with thrombocytopenia. Workup for the megaloblastic anemia was ne mega. ?? He had a stress test and echocardiogram which showed left ve ntricular hypertrophy, but no evidence of ischemia. Patient has been feeling tired for the last year. Denies any we ight loss or early satiety. Patient has no fever or chills or night sweats. He has no abdominal pain or ja undice. Patient has no cough or shortness of breath. Despite thrombocytopenia he jenkins s no increased bleeding or bruising. He denied rectal bleeding or melena. His stool was heme negative. Patient had no previous blood transfusion or history of hepatitis. Patient has no headaches, increased lethargy, or neuropathy. He denies a history of alcohol or tobacco use. ?? Current treatment: Rituxan and cyclophosphamide/prednisone x 4 cycles ( 03/05/17-05/29/2017 ) >?Rituximab every 21 days x 2 additional cycles ?? Interim history: Mr. Wilkerson??has?no?new complaints. ?Patient h as no?chest discomfort, dizziness or palpitation.??He denies ?fatigue, cough, or?shortness of breath. He denies fever, chills or night sweats. ?no swel ling glands, adenopathy or early satiety or weight loss. He has no clinic al bleeding or bruising. ?? All medications AND allergies updated and reviewed by me. ?? REVIEW OF SYSTEMS: ?? CONSTITUTIONAL: No fevers, chills, nightsweats, unintended w eight loss or fatigue HEENT: Denies frequent or severe heaches, nasal congestion/s inus symptoms, problematic allergy problems.?Mild erythema and swelling in the maxillary region of his face. EYES: No diplopia or blurry vision. CARDIOVASCULAR: No chest pain, dyspnea, palpitations, orth opnea, PND, ankle edema. PULM: No dyspnea, unexplained cough. GI: No dysphagia/odynophagia, problematic reflux, constipati on, diarrhea, changes in stool habits, hematochezia, melena. : No new urinary complaints, including dysuria, magnus s hematuria or pyuria. NEURO: No new balance proble ms, peripheral weakness/paresthesias or numbness of concern. MUSC-SKEL: No new joint pain, swelling, or erythema. PSY: No concerns regarding depression, anxiety or panic. INTEGUMENTARY: No new skin changes (rash , new or changing mole, new growth) no increased bleeding or bruising. ?? PHYSICAL EXAMINATION: 85-year-old gentleman in no acute dist ress Performance status: 90% BP 132/84 Pulse 54 Temp (Src) 97.2 (Temporal) Wt 155 lb 8 oz (70.5kg) HEENT: Head is normocephalic , atraumatic. Sclerae white, complexion pale PEERL. EOMs are intact. Oropharynx is benign. Several raised edges/ borders skin lesions?on face. LYMPHATICS: There is no palpable adenopathy in the neck, sup raclavicular region, axillae, or groin. LUNGS: Lungs diminished breath sounds on bases. No wheezes o r rhonchi. HEART: Heart is irregular regular rhythm,PMI is nondisplaced . There is a scratchy apical systolic eje ction murmur. No click is heard. Carotids are brisk without bruits. -JVD ABDOMEN: Soft and nontender, no ascites. no hepatosplenomega ly. EXTREMITIES: Are without edema. No petechiae or ecchymosis. NEUROLOGIC: Exam is physiologic ?? LABORATORY DATA:? Component Latest Ref Rng AND Units 08/10/2020 WBC 3.70 - 11.00 k/uL 5.78 RBC 4.20 - 6.00 m/uL 4.70 Hemoglobin 13.0 - 17.0 g/dL 15.0 Hematocrit 39.0 - 51.0 % 45.8 MCV 80.0 - 100.0 fL 97.4 MCH 26.0 - 34.0 pG 31.9 MCHC 30.5 - 36.0 g/dL 32.8 RDW-CV 11.5 - 15.0 % 13.2 Platelet Count 150 - 400 k/uL 209 MPV 9.0 - 12.7 fL 10.1 Neut% % 68.9 Abs Neut (ANC) 1.45 - 7.50 k/uL 3.97 Lymph% % 16.8 Abs Lymph 1.00 - 4.00 k/uL 0.97 (L) [place]% % 10.6 Abs [place] <0.87 k/uL 0.61 Eosin% % 2.8 Abs Eosin <0.46 k/uL 0.16 Baso% % 0.9 Abs Baso <0.11 k/uL 0.05 Nucleated Reds 0 /100 WBC 0.0 Absolute nRBC <0.01 k/uL <0.01 Diff Type Auto Diff Component Latest Ref Rng AND Units 08/10/2020 Protein, Total 6.3 - 8.0 g/dL 6.5 Albumin 3.9 - 4.9 g/dL 4.4 Calcium 8.5 - 10.2 mg/dL 9.5 Bilirubin, Total 0.2 - 1.3 mg/dL 0.5 Alkaline Phosphatase 38 - 113 U/L 82 AST 14 - 40 U/L 23 Glucose 74 - 99 mg/dL 90 BUN 9 - 24 mg/dL 23 Creatinine 0.73 - 1.22 mg/dL 1.00 Sodium 136 - 144 mmol/L 141 Potassium 3.7 - 5.1 mmol/L 5.5 (H) Chloride 97 - 105 mmol/L 105 CO2 22 - 30 mmol/L 27 Anion Gap 9 - 18 mmol/L 9 ALT 10 - 54 U/L 16 eGFR- >60 eGFR-All Other Races . 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 ?? Patient is doing well.??His complete blood count his normal, and he is asymptomatic ?? PLAN:? - Continue observation follow-up in?1 year. - Repeat CBC, CMP, LDH in?1 year - Flu shot today ? Tr Mills MD Referring Provider: TR MILLS [[id number]] Allergies As of Date: 08/10/2020 Noted Allergy Reaction ATENOLOL 12/26/2005 14 - Other: See Comments Comments: dizzy AUGMENTIN (AMOXICILLIN-POT CLAVUL*12/26/2005 2 - Rash CLINDAMYCIN 07/10/2017 7 - Swelling Date Reviewed: 08/10/2020 Reviewed by: Diana Naylor - Fully Assessed Reason for Visit: Established Patient [175] Primary Visit Diagnosis:B-cell lymphoma of extranodal site ( HCC) [C85.19] Order(s):[] influenza vaccine qs 240 mcg (Patients 65 years and older) (PF) 0.7 mL injection (FLUZONE HIGH DOSE )Disp: Rfl: Disposition: Return in about 1 year (around 08/10/2021). Follow-up and Disposition History Recorded Prescriptions as of 08/10/2020 Sig: FINASTERIDE 5 MG TABLET Take 1 tablet by mouth once d* TAMSULOSIN 0.4 MG CAPSULE TAKE 1 CAPSULE BY MOUTH EVERY* MELOXICAM 15 MG TABLET Take 1 tablet by mouth once d* METOPROLOL TARTRATE ORAL Take 1 tablet by mouth twice * ASPIRIN 81 MG TABLET,DELAYED * Take 81 mg by mouth every oth * METAMUCIL ORAL Take 1 teaspoonful by mouth o* CHOLECALCIFEROL (VITAMIN D3) * Take 1 tablet by mouth once d * POLYETHYLENE GLYCOL 3350 17 G* Take 1 Packet by mouth once d * MAGNESIUM CITRATE ORAL SOLUTI* Drink 1/3 of bottle, wait 4hr * ISOSORBIDE MONONITRATE ER 30 * Take 1 tablet by mouth once d * Patient not taking: Reported on 10/02/2019 Medication notes this encounter POLYETHYLENE GLYCOL 3350 17 GRAM ORAL POWDER PACKET >> Diana Naylor MA 08/10/2020 11:36 AM >> DIANA NAYLOR MAAug 10, 2020 11:36 AM No longer taking. MAGNESIUM CITRATE ORAL SOLUTION >> Diana Naylor MA 08/10/2020 11:36 AM >> DIANA NAYLOR MA Aug 10, 2020 11:36 AM No longer taking. ISOSORBIDE MONONITRATE ER 30 MG TABLET,EXTENDED RELEASE 24 H R >> Diana Naylor MA 08/10/2020 11:38 AM >> DIANA NAYLOR MA Aug 10, 2020 11:38 AM No longer taking. 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/2017 Venous insufficiency (chronic) (peripheral) [I8*05/03/2017 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] 05/09/2017 Acute deep vein thrombosis (DVT) of axillary ve*05/21/2017 0 06/04/2018 Chronic anticoagulation [Z79.01] 05/21/2017 07/11/2017 Hyperlipidemia [E78.5] 08/14/2018 Premature atrial contractions [I49.1] 08/14/2018 Encounter Status:Closed by TR MILLS MD on 08/11/20 cbc and differential on 2020-08-10 Abs Baso 0.05 <0.11 k/uL Normal 08-10-2020 [facility] ([id number]) Abs [place] 0.61 <0.87 k/uL Normal 08-10-2020 [facility] ([id number]) Abs Neut 3.97 1.45-7.50 k/uL Normal 08-10-2020 [facility] ([id number]) Absolute nRBC <0.01 <0.01 Normal 08-10-2020 [facility] ([id number]) Basophils/100 WBC 0.9 % Normal 08-10-2020 [facility] (Bld) [place] ([id number]) DTYPE Auto Diff Normal 08-10-2020 [facility] ([id number]) Eosinophils (d) 0.16 <0.46 k/uL Normal 08-10-2020 [facility] [#/Vol] [place] ([id number]) Eosinophils/100 WBC 2.8 % Normal 08-10-2020 [facility] (Bld) [place] ([id number]) Erythrocyte 13.2 11.5-15.0 % Normal 08-10-2020 [facility] distribution width [facility] ([id number]) (RBC) [Ratio] Hematocrit (Bld) 45.8 39.0-51.0 % Normal 08-10-2020 [facility] [Volume fraction] [facility] ([id number]) Hemoglobin (Bld) 15.0 13.0-17.0 g/dL Normal 08-10-2020 [facility] [Mass/Vol] [place] ([id number]) Lymphocytes (Bld) 0.97 1.00-4.00 k/uL Low 08-10-2020 [facility] [#/Vol] [place] ([id number]) Lymphocytes/100 WBC 16.8 % Normal 08-10-2020 [facility] (Bld) [place] ([id number]) MCH (RBC) [Entitic 31.9 26.0-34.0 pG Normal 08-10-2020 [facility] mass] [place] ([id number]) MCHC (RBC) 32.8 30.5-36.0 g/dL Normal 08-10-2020 [facility] [Mass/Vol] [place] ([id number]) MCV (RBC) [Entitic 97.4 80.0-100.0 fL Normal 08-10-2020 [facility] vol] [place] ([id number]) Monocytes/100 WBC 10.6 % Normal 08-10-2020 [facility] (Bld[facility] [place] ([id number]) Neutrophils/100 WBC 68.9 % Normal 08-10-2020 [facility] (Bld) [place] ([id number]) NRBCs 0.0 0 /100 WBC Normal 08-10-2020 [facility] ([id number]) Platelet mean volume 10.1 9.0-12.7 fL Normal 0 [facility] (Bld) [Entitic vol] [place] ([id number]) Platelets (Bld) 209 150-400 k/uL Normal 08-10-2020 [facility] [#/Vol] [place] ([id number]) RBC (Bld) [#/Vol] 4.70 4.20-6.00 m/uL Normal 08-10-2020 [facility] ([id number]) WBC (Bld) [#/Vol] 5.78 3.70-11.00 k/uL Normal 08-10-2020 [facility] ([id number]) cnpn on 2020-08-04 CNPN Telephone (CHRISTY) Normal 08-04-2020 [place] [facility] ROCK JOSUE ([id number]) 1935 M [place] Date Time Provider Department ([id number]) 08/04/20 TR MILLS During your visit today, we recorded the following informati on about you: Starla Horvath 08/04/2020 10:34 AM Signed Patient scheduled for yearly labs/OV for 08/[address] Mills. Allergies As of Date: 08/04/2020 Noted Allergy Reaction ATENOLOL 12/26/2005 14 - Other: See Comments Comments: dizzy AUGMENTIN (AMOXICILLIN-POT CLAVUL*12/26/2005 2 - Rash CLINDAMYCIN 07/10/2017 7 - Swelling Date Reviewed: 04/16/2020 Reviewed by: Katie Crisostomo Ma - Fully Assessed Reason for Visit: Appointment [186] Prescriptions as of 08/04/2020 Sig: FINASTERIDE 5 MG TABLET Take 1 tablet by mouth once d* TAMSULOSIN 0.4 MG CAPSULE TAKE 1 CAPSULE BY MOUTH EVERY* POLYETHYLENE GLYCOL 3350 17 G* Take 1 Packet by mouth once d * MAGNESIUM CITRATE ORAL SOLUTI* Drink 1/3 of bottle, wait 4hr * MELOXICAM 15 MG TABLET Take 1 tablet by mouth once d* METOPROLOL TARTRATE ORAL Take by mouth. ISOSORBIDE MONONITRATE ER 30 * Take 1 tablet by mouth once d * Patient not taking: Reported on 10/02/2019 ASPIRIN 81 MG TABLET,DELAYED * Take 81 mg by mouth once carson * METAMUCIL ORAL Take 1 teaspoonful by mouth o* CHOLECALCIFEROL (VITAMIN D3) * Take 1 tablet by mouth once d * Problem List As Of Date 08/04/2020 Noted Resolved PAIN ABDOMEN GENERALIZED(Mesh recall) [R10.84] 04/09/2006 BOWEL OBSTRUCTION ADHESIONS [K56.50] 02/14/2007 02/12/2015 BPH with obstruction/lower urinary tract sympto*12/02/2007 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.0] 12/02/2007 Incisional hernia without mention of obstructio*06/08/2009 0 02/12/2015 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] 12/01/2016 0 05/09/2017 Lymphocytosis [D72.820] 12/25/2016 Thrombocytopenia, 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] 12/25/2016 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/2017 Venous insufficiency (chronic) (peripheral) [I8*05/03/2017 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] 05/09/2017 Acute deep vein thrombosis (DVT) of axillary ve*05/21/2017 0 06/04/2018 Chronic anticoagulation [Z79.01] 05/21/2017 07/11/2017 Hyperlipidemia [E78.5] 08/14/2018 Premature atrial contractions [I49.1] 08/14/2018 Encounter Status:Closed by JEANNIE YANG LPN on 08/04/20 obsolete on 2020-07 OBSOLETE Refill (UROLWS) Normal 08-03-2020 Dada merritt [facility] JOSUE GEORGES ([id number]) 1935 M [place] Date Time Provider Department ([id number]) 08/03/20 CAROL ESTRELLA) UROLWS During your visit today, we recorded the following informati on about you: Balbina Resendiz LPN 08/03/2020 11:17 AM Signed Patient has been identified by name and date of : Yes Pending Prescriptions Disp Refills FINASTERIDE 5 MG TABLET 90 tablet 3 Sig: Take 1 tablet by mouth once daily. CHAU: No RX INSTRUCTIONS: Patient aware RX will be sent to pharmacy. No need to notify patient. Balbina Resendiz LPN Allergies As of Date: 08/03/2020 Noted Allergy Reaction ATENOLOL 12/26/2005 14 - Other: See Comments Comments: dizzy AUGMENTIN (AMOXICILLIN-POT CLAVUL*12/26/2005 2 - Rash CLINDAMYCIN 07/10/2017 7 - Swelling Date Reviewed: 04/16/2020 Reviewed by: Katie Crisostomo Ma - Fully Assessed Reason for Visit: Rx Refills [128] Order(s):finasteride (PROSCAR) 5 mg tabletTake 1 tablet by m outh once daily.Disp: 90 tabletRfl: 3 Prescriptions as of 08/03/2020 Sig: FINASTERIDE 5 MG TABLET Take 1 tablet by mouth once d* TAMSULOSIN 0.4 MG CAPSULE TAKE 1 CAPSULE BY MOUTH EVERY* POLYETHYLENE GLYCOL 3350 17 G* Take 1 Packet by mouth once d * MAGNESIUM CITRATE ORAL SOLUTI* Drink 1/3 of bottle, wait 4hr * MELOXICAM 15 MG TABLET Take 1 tablet by mouth once d* METOPROLOL TARTRATE ORAL Take by mouth. ISOSORBIDE MONONITRATE ER 30 * Take 1 tablet by mouth once d * Patient not taking: Reported on 10/02/2019 ASPIRIN 81 MG TABLET,DELAYED * Take 81 mg by mouth once carson * METAMUCIL ORAL Take 1 teaspoonful by mouth o* CHOLECALCIFEROL (VITAMIN D3) * Take 1 tablet by mouth once d * Problem List As Of Date 08/03/2020 Noted Resolved PAIN ABDOMEN GENERALIZED(Mesh recall) [R10.84] 04/09/2006 BOWEL OBSTRUCTION ADHESIONS [K56.50] 02/14/2007 02/12/2015 BPH with obstruction/lower urinary tract sympto*12/02/2007 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.0] 12/02/2007 Incisional hernia without mention of obstructio*06/08/2009 0 02/12/2015 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] 12/01/2016 0 05/09/2017 Lymphocytosis [D72.820] 12/25/2016 Thrombocytopenia, 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 Medications Discontinued During This Encounter Prescriptions - finasteride (PROSCAR) 5 mg tablet (Discontinued) TAKE 1 TABLET BY MOUTH EVERY DAY Encounter Status:Closed by BALBINA RESENDIZ LPN on 08/04/20 xr abdomen 1v supine on 2020-04-16 XR ABDOMEN 1V * * *Final Report* * * Normal [facility] SUPINE DATE OF EXAM: Apr 16 2020 10:18AM [place] ([id number]) WOX [id number] - XR ABDOMEN 1V SUPINE / PROCEDURE REASON: multiple diagnoses * * * * Physician Interpretation * * * * EXAM: XR ABDOMEN 1V SUPINE HISTORY: Abdominal discomfort, bilateral lower quadrant Abdo sagar discomfort, bilateral lower quadrant Acute constipation . VIEWS: Supine AP x2. COMPARISON: 10/18/2018. FINDINGS: Scattered colonic gas and moderate amount of stool in the right colon. No intestinal dilatation. Left convex thoracic spinal curvature. Facet arthrosis at lower lumbar spine. Hypertrophic spurring and chondrocalcinosis at both hips. IMPRESSION: Nonobstructive intestinal gas pattern. Scattered colonic gas and moderate amount of stool in the ri ght colon. Dry Folder Cloth: PSCB Transcribe Date/Time: Apr 16 2020 10:22A Dictated by : Rey NATH MD This examination was interpreted and the report reviewed and electronically signed by: Rey NATH MD on Apr 16 2020 10:26AM EST [id number] progress on 2020-03 PROGRESS HNO ID: [id number] Normal 04-16-2020 [facility] Author: Kiana Goodman (Rt) Cleve Elliott [place] ([id number]) Service: ? Author Type: Elementary Substitute Teacher Type: Progress Notes Filed: 04/16/2020 10:18 AM Note Text: Radiology Service Progress Note PATIENT NAME: Josue Wilkerson Jr DATE OF SERVICE: April 16, 2020 TIME: 10:18 AM PATIENT IDENTITY VERIFICATION COMPLETED USING TWO (2) IDENTI FIERS: Name and Date of confirmed by patient verbally. FALL SCREENING: Has the patient had 2 falls in the last year or 1 fall with injury or currently using an Ambulatory Assistive Devic e (Walker, Cane, Wheelchair, Crutches, etc.)? No PATIENT GENDER DATA: Male PATIENT RELEVANT IMPLANT DATA REVIEWED: Not Applicable RADIOLOGY DEPARTMENT: General X-ray: Exam(s) Completed: Abdo men X-Ray Abdomen PERIPHERAL IV DATA: Not applicable SIGNED BY: RT Sandro April 16, 2020 10:18 AM PROGRESS HNO ID: [id number] Normal 04-16-2020 [facility] Author: Destiny Martinez) [place] ([id number]) Service: ? Author Type: Nurse Practitioner Type: Progress Notes Filed: 04/16/2020 10:57 AM Note Text: Subjective 85 year old male with PMH hyperlipidemia, PAC, anemia, and v enous insufficiency presents with complaints of bowel issue Endorses that he believes I am unable to get all my poop ou t. +abdominal fullness. Denies N/V/D. Denies coffee ground emesis. Denies fever or chills. Denies feelings of lightheaded or dizziness. Endorse s that he has a history of BPH and experiences intermittent difficulty wit h urination, denies change in baseline presently. Endorses that he has be en attempting Metamucil without much relief. +flatus. Denies factors that seem to alleviate. Denies factors that seem to exacerbate. LBM prior to arrival just a small one Abdominal Pain This is a recurrent problem. The current episode started mor e than 1 week ago. The problem occurs constantly. Progression since onset: waxing and waning. The pain is associated with an unknown factor. Pain location: not pain, but full belly The quality of the pain is pressure-li ke. The patient is experiencing no pain. Associated symptoms include flatus and constipation. Pertinent negatives include anorexia, fever, b elching, diarrhea, hematochezia, melena, nausea, vomiting, dysuria, f requency, hematuria, headaches, arthralgias and myalgias. Nothing aggr avates the symptoms. Nothing relieves the symptoms. Past workup include s CT scan. His past medical history does not include PUD, gallstones, GERD, ulcerative colitis, Crohn's disease or irritable bowel syndrome. 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 Take with food. METOPROLOL TARTRATE ORAL Take by mouth. tamsulosin ER (FLOMAX) 0.4 mg cap TAKE 1 CAPSULE BY MOUTH EV ERYDAY AT BEDTIME finasteride (PROSCAR) 5 mg tablet TAKE 1 TABLET BY MOUTH YARON RY DAY aspirin, enteric coated (ASPIRIN, ENTERIC COATED) 81 mg EC t ablet Take 81 mg by mouth once daily. PSYLLIUM HUSK (METAMUCIL ORAL) Take 1 teaspoonful by mouth o nce daily. Cholecalciferol, Vitamin D3, 2,000 unit cap Take 1 tablet by mouth once daily. polyethylene glycol 3350 (MIRALAX) 17 gram packet Take 1 Pac ket by mouth once daily. magnesium citrate solution Drink 1/3 of bottle, wait 4hrs fo r results. If no stool, drink next 1/3 bottle. Wait 4hrs. No results, then drink last 1/3 of bottle. For severe constipation. isosorbide mononitrate ER (IMDUR) 30 mg 24 hr tablet Take 1 tablet by mouth once daily. FAMILY HISTORY Problem Relation Age of Onset - Prostate Cancer Brother - Prostate Cancer Brother - Heart disease Mother - Heart disease Sister Social History Tobacco Use - Smoking status: Never Smoker - Smokeless tobacco: Never Used Substance Use Topics - Alcohol use: No - Drug use: No Review of Systems Constitutional: Negative for chills, fever, malaise/fatigue and weight loss. HENT: Negative for congestion, ear discharge, ear pain, hear ing loss, nosebleeds and tinnitus. Eyes: Negative for blurred vision, double vision, photophobi a, pain and discharge. Respiratory: Negative for cough, hemoptysis, sputum producti on and shortness of breath. Cardiovascular: Negative for chest pain, palpitations, ortho pnea and claudication. Gastrointestinal: Positive for abdominal pain, constipation and flatus. Negative for anorexia, blood in stool, diarrhea, heartburn, hematochezia, melena, nausea and vomiting. Genitourinary: Negative for dysuria, frequency and hematuria . Musculoskeletal: Negative for arthralgias and myalgias. Skin: Negative for itching and rash. Neurological: Negative for dizziness, tingling, tremors, sen calista change, speech change and headaches. Endo/Heme/Allergies: Negative for environmental allergies an d polydipsia. Does not bruise/bleed easily. Psychiatric/Behavioral: Negative for depression, hallucinati ons, substance abuse and suicidal ideas. BP 118/62 Pulse (!) 48 Temp (!) 35.9 ?C (96.7 ?F) (Tympa oli) Resp 16 Wt 68 kg (150 lb) SpO2 96% BMI 26.78 kg/m? Objective Physical Exam Constitutional: He is oriented to person, place, and time an d well-developed, well-nourished, and in no distress. HENT: Head: Normocephalic and atraumatic. Right Ear: External ear normal. Left Ear: External ear normal. Mouth/Throat: Oropharynx is clear and moist. Eyes: Pupils are equal, round, and reactive to light. Conjun ctivae and EOM are normal. Right eye exhibits no discharge. Left eye exhibi ts no discharge. No scleral icterus. Neck: Normal range of motion. Neck supple. No tracheal devia tion present. No thyromegaly present. Cardiovascular: Normal rate, regular rhythm and normal heart sounds. Exam reveals no gallop and no friction rub. No murmur heard. Pulmonary/Chest: Effort normal and breath sounds normal. No respiratory distress. He has no wheezes. He has no rales. He exhibits no tenderness. Abdominal: Soft. Bowel sounds are normal. He exhibits no dis tension and no mass. There is no abdominal tenderness. There is no rebound and no guarding. Moderate stool palpable Musculoskeletal: Normal range of motion. General: No tenderness, deformity or edema. Lymphadenopathy: He has no cervical adenopathy. Neurological: He is alert and oriented to person, place, and time. GCS score is 15. Skin: Skin is warm and dry. No rash noted. No erythema. No p allor. Psychiatric: Mood, affect and judgment normal. Nursing note and vitals reviewed. ASSESSMENT/PLAN: 1. Abdominal discomfort, bilateral lower quadrant - ICD9: 78 9.03, 789.04, ICD10: R10.31, R10.32 (primary diagnosis) - Increase fiber in diet - Treatment for constipation discussed - Referral to Gastroenterology - Follow up in 2 days or sooner if worsening of symptoms - RX Magnesium Citrate x1 and daily Metamucil. - UA DIP, URINE (POC) negative. - URINE CULTURE - XR ABDOMEN 1V SUPINE reveals moderate stool. 2. Acute constipation - ICD9: 564.00, ICD10: K59.00 - Increase fiber in diet - Treatment for constipation discussed - Referral to Gastroenterology - Follow up in 2 days or sooner if worsening of symptoms - RX Magnesium Citrate x1 and daily Metamucil. - UA DIP, URINE (POC) negative. - URINE CULTURE - XR ABDOMEN 1V SUPINE reveals moderate stool. Destiny Guardado APRN.ALEX davila on 2020-04-16 CNOV Office Visit ([facility]) Normal 04-16-20 [place] [facility] JOSUE WILKERSON JR ([id number]) 1935 M [place] Date Time Provider Department ([id number]) 04/16/20 9:45 AM DESTINY GUARDADO ([facility]) [facility] During your visit today, we recorded the following informati on about you: Temperature Pulse Respiration Blood pressure 96.7 degrees 48/minute 16/minute 118/62 Weight 68 kg Destiny Guardado, TRIM SAWYER.MANAGER DECISION SUPPORT 04/16/2020 10:57 AM Signed Subjective 85 year old male with PMH hy perlipidemia, PAC, anemia, and venous insufficiency presents with complaints of bowel issue Endorses that he believes I am unable to get all my poop ou t. +abdominal fullness. Denies N/V/D. Denies coffee ground emesis. D enies fever or chills. Denies feelings of lightheaded or dizzin ess. Endorses that he has a history of BPH and experiences intermittent difficulty with urina tion, denies change in baseline presently. Endorses that he has been attempting Metamucil without much relief. +flatus. Denies factors that seem to alleviate. De nies factors that seem to exacerbate. LBM prior to arrival just a small one Abdominal Pain This is a recurrent problem. The current episode started more than 1 week ago. The problem occurs constantly. Progressi on since onset: waxing and waning. The pain is associated with an unknown factor. Pain location: not pain, but full belly The quality of the pa in is pressure-like. The patient is experiencing no pain. Associated symptoms include flatus and constipation. Pertinent negatives include anorexia, fever, belching, diarrhea, hematochezia, m carlos, nausea, vomiting, dysuria, frequency, hematuria, headach es, arthralgias and myalgias. Nothing aggravates the symptoms. Nothing relieves the symp toms. Past workup includes CT scan. His past medical history does not in clude PUD, gallstones, GERD, ulcerative colitis, Crohn's disease or irritable bowel syndrome. 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 Take with food. METOPROLOL TARTRATE ORAL Take by mouth. tamsulosin ER (FLOMAX) 0.4 mg cap TAKE 1 CAPSULE BY MOUTH EVERYDAY AT BEDTIME finasteride (PROSCAR) 5 mg tablet TAKE 1 TABLET BY MOUTH YARON aspirin, enteric coated (ASP IRIN, ENTERIC COATED) 81 mg EC tablet Take 81 mg by mouth once daily. PSYLLIUM HUSK (METAMUCIL ORAL) Take 1 teaspoonful by mouth o nce daily. Cholecalciferol, Vitamin D3, 2,000 unit cap Take 1 tablet by mouth once daily. polyethylene glycol 3350 (MIRALAX) 17 gram packe t Take 1 Packet by mouth once daily. magnesium citrate solution Drink 1/3 of bottle, wait 4 hrs for results. If no stool, drink next 1/3 bottle. Wait 4hrs. No results, then drink last 1/3 of bottle. For severe constipation. isosorbide mononitrate ER (IMDUR) 30 mg 24 hr tablet Take 1 tablet by mouth once daily. FAMILY HISTORY Problem Relation Age of Onset - Prostate Cancer Brother - Prostate Cancer Brother - Heart disease Mother - Heart disease Sister Social History Tobacco Use - Smoking status: Never Smoker - Smokeless tobacco: Never Used Substance Use Topics - Alcohol use: No - Drug use: No Review of Systems Constitutional: Negative for chills, fever, malaise/fa tigue and weight loss. HENT: Negative for congestion, ear discharge, ear pain, hear ing loss, nosebleeds and tinnitus. Eyes: Negative for blurred vision, double vision, photophobi a, pain and discharge. Respiratory: Negative for co ugh, hemoptysis, sputum production and shortness of breath. Cardiovascular: Negative for chest pain, palpitations, ortho pnea and claudication. Gastrointestinal: Positive for abdominal pain, constipation and flatus. Negative for anorexia, blood in stool, diarrhea, heartburn, hematochezia, melena, nausea and vomiting. Genitourinary: Negative for dysuria, frequency and hematuria . Musculoskeletal: Negative for arthralgias and myalgias. Skin: Negative for itching and rash. Neurological: Negative for d izziness, tingling, tremors, sensory change, speech change and headaches. Endo/Heme/Allergies: Negative for enviro nmental allergies and polydipsia. Does not bruise/bleed easily. Psychiatric/Behavioral: Negative for depression, hallucinati ons, substance abuse and suicidal ideas. BP 118/62 Pulse (!) 48 Temp (!) 35.9 ?C (96.7 ?F) (Tympa oli) Resp 16 Wt 68 kg (150 lb) SpO2 96% BMI 26.78 kg/m? Objective Physical Exam Constitutional: He is oriented to person, place, and time and well-developed, well-nourished, and in no distress. HENT: Head: Normocephalic and atraumatic. Right Ear: External ear normal. Left Ear: External ear normal. Mouth/Throat: Oropharynx is clear and moist. Eyes: Pupils are equal, round, and react shweta to light. Conjunctivae and EOM are normal. Right eye exhibits no discharge. Left eye exhibits no discharge. No scleral icterus. Neck: Normal range of motion. Neck supple. No tracheal deviation present. No thyromegaly present. Cardiovascular: Normal rate, regular rhythm and normal heart sounds. Exam reveals no gallop and no friction rub. No murmur heard. Pulmonary/Chest: Effort normal and breath sounds normal. No respiratory distress. He has no wheezes. He has no rales. He exhibits no tenderness. Abdominal: Soft. Bowel sounds are normal. He exhibits no dis tension and no mass. There is no abdominal tenderness. There is no re bound and no guarding. Moderate stool palpable Musculoskeletal: Normal range of motion. General: No tenderness, deformity or edema. Lymphadenopathy: He has no cervical adenopathy. Neurological: He is alert an d oriented to person, place, and time. GCS score is 15. Skin: Skin is warm and dry. No rash noted. No erythema. No p allor. Psychiatric: Mood, affect and judgment normal. Nursing note and vitals reviewed. ASSESSMENT/PLAN: 1. Abdominal discomfort, bilateral lower quadrant - ICD9: 78 9.03, 789.04, ICD10: R10.31, R10.32 (primary diagnosis) - Increase fiber in diet - Treatment for constipation discussed - Referral to Gastroenterology - Follow up in 2 days or sooner if worsening of symptoms - RX Magnesium Citrate x1 and daily Metamucil. - UA DIP, URINE (POC) negative. - URINE CULTURE - XR ABDOMEN 1V SUPINE reveals moderate stool. 2. Acute constipation - ICD9: 564.00, ICD10: K59.00 - Increase fiber in diet - Treatment for constipation discussed - Referral to Gastroenterology - Follow up in 2 days or sooner if worsening of symptoms - RX Magnesium Citrate x1 and daily Metamucil. - UA DIP, URINE (POC) negative. - URINE CULTURE - XR ABDOMEN 1V SUPINE reveals moderate stool. Destiny Guardado APRN.ALEX Guardado APRN.CNP 04/16/2020 10:38 AM Signed Constipation Constipation can be an unpleasant topic to talk about. Most people have experienced constipation at some point in their life. Though typically not serious, constipation can be both painful and frustrating. What is constipation? Constipation occurs when bow el movements become difficult or less frequent than normal. The frequency or mark e between bowel movements ranges widely from person to person. Some people have bowel movements several ti mes a day while others only one to two times a week. Going longer than three days w ithout a bowel movement is too long. After three days, the stool becomes jenkins rder and more difficult to pass. What causes constipation? Constipation is most commonly caused by inadequate fiber in the diet or a disruption of the regular di et or routine. Chronic constipation may be due to a poor diet, dehydration, certain medications (such as a ntidepressants, strong pain medications), stress, or the pressure of ot her activities that force you to ignore the urge to empty the bowel. Various medical conditions can also cause or aggravate constipation. Some of the more common medical conditions that cause constipa tion include endocrine problems, such as decreased function of the thyroid gland or diabetes. Colorectal cancer is another medical con dition that can cause constipation but it usually also accompanied by other sym ptoms including blood in the stool and weight loss. Common causes of constipation include the following: A diet low in fiber Not drinking enough water Lack of exercise Travel or another change in routine Eating large amounts of milk or cheese Stress or resisting the urge to have a bowel movement Medications strong pain medicines such as narcotics antidepressants antacids containing calcium or aluminum such as TUMS iron pills allergy medications such as antihistamines certain blood pressure medicines psychiatric medications herbal supplements Irritable bowel syndrome (IBS) Neurologic disorders including spinal cord injur y and multiple sclerosis (MS) Slow transit of the colon How is constipation evaluated? Most people do not need extensive testing to evaluate consti pation. Only a small number of patients with constipation have a seri ous underlying medical problem (such as poor function of the thyroid gland, d iabetes, or colorectal cancer). If you have constipation deric t has persisted for more than two weeks, you should see a doctor to determine if you need further evaluation. For a patient who has colorectal cancer, early detection and treatment may be life -saving. Standard evaluation for constipation includes performing blo od tests and examining the colon by colonoscopy, particularly for patie nts older than 50 years.. Other tests include colonic transit stud ies (time it takes for stools to move through the colon) and anal manometry (measures pr essure and muscle function in the rectum and anus). Most patients with serious constipation, and without any o bvious illness to explain their symptoms, suffer from one of two problems: Colonic inertia (also called lazy colon): a condition in whi ch the colon contracts poorly and retains stool. This can be determined by colon transit studies. Obstructed defecation: a condition in which the colon contracts normally, but the patient is unable to expel stool from the rectum. This condition can be confirmed by a test called anal manometry. How can I prevent constipation? Eat a well-balanced diet with plenty of fiber. Good sources of fiber are fruits, vegetables, legumes, and whole-grain breads and cere als. Fiber and water help the colon pass stool. Most of the fiber in fruits is found in the skins, such as in apples. Fruits with seeds you can eat, l joyce strawberries, have the most fiber. Bran is a great source of fiber: eat bran cereal or add bran cereal to other foods, like soup and yogurt. Drink eight 8-ounce glasses of water a d ay. (Note: Milk can cause constipation in some people.) Liquids deric t contain caffeine, such as coffee and soft drinks, have a dehydrating effect and may need to be avoided u ntil your bowel habits return to normal. Exercise regularly. Move your bowels when you feel the urge. How is constipation treated? Drink two to four extra glasses of water a day. Try warm liquids, especially in the morning. Add fruits and vegetables to your diet. Eat prunes and/or bran cereal. Add supplemental fiber to your diet (there are several types , such as Metamucil, Citrucel, and Benefiber). If needed, use a very mild stool softener or laxative (such as colace [docusate] or Milk of Magnesia). Do not use laxa tives for more than two weeks without calling your health care provider, as laxative overuse can aggravate your symptoms. When should I call my health care provider? Call your health care provider if: Constipation is a new problem for you. You have blood in your stool. You are losing weight unintentionally. You have severe pain with bowel movements. Your constipation has lasted more than three weeks. Where can I learn more? National Digestive Diseases Information Clearinghouse2 In[address] natanaelmary lou [address] [place], [place] [address] www.digestive.niddk.nih.gov email: References: National Digestive Diseases Information Clearinghouse. Const ipation. digestive.niddk.nih.gov Accessed August 23, 2012. [employer]. Understanding Cons tipation. www.gastro.org. Accessed August 23, 2012. ?Copyright 8642-2692 [facility]. All ri ghts reserved This information is provided by the [facility] and i s not intended to replace the medical advice of your doctor or health care pro vider. Please consult your health care provider for advice about a specifi c medical condition. For additional health information, please conta ct the Center for Consumer Health Information at the [facility] or toll-free extension [phone]. If you prefer, you may visit [email or web address] or [email or web address]. This document was last reviewed on: 2012 index #5417 Referring Provider: SELF [200] Allergies As of Date: 04/16/2020 Noted Allergy Reaction ATENOLOL 12/26/2005 14 - Other: See Comments Comments: dizzy AUGMENTIN (AMOXICILLIN-POT CLAVUL*12/26/2005 2 - Rash CLINDAMYCIN 07/10/2017 7 - Swelling Date Reviewed: 04/16/2020 Reviewed by: Katie Crisostomo Ma - Fully Assessed Reason for Visit: Pelvic Pain [282] Cmt: bilateral pelvic pressure and const ipation x 1 month Primary Visit Diagnosis:Abdo sagar discomfort, bilateral lower quadrant [R10.31, R10.32] Other Visit Diagnosis:Acute constipation [K59.00] Order(s):UA DIP, URINE (POC) [7692880] Order #: [id number] XR ABDOMEN 1V SUPINE [[id number]] Order #: [id number] FUTURE UA DIP, URINE (POC) [[id number]] Order #: [id number]. #:[id number] polyethylene glycol 3350 (MIRALAX) 17 gram packetTake 1 Pack et by mouth once daily.Disp: 14 PacketRfl: 0 magnesium citrate solutionDrink 1/3 of bottle, wait 4hrs for results. If no stool, drink next 1/3 bottle. Wait 4hrs. No results, t hen drink last 1/3 of bottle. For severe constipation.Disp: 295 mLRfl: 0 CONSULT TO GASTROENTEROLOGY [9010] Order #: [id number]: 1 FUTURE Prescriptions as of 04/16/2020 Sig: MELOXICAM 15 MG TABLET Take 1 tablet by mouth once d* METOPROLOL TARTRATE ORAL Take by mouth. TAMSULOSIN 0.4 MG CAPSULE TAKE 1 CAPSULE BY MOUTH EVERY* FINASTERIDE 5 MG TABLET TAKE 1 TABLET BY MOUTH EVERY * ASPIRIN 81 MG TABLET,DELAYED * Take 81 mg by mouth once carson * METAMUCIL ORAL Take 1 teaspoonful by mouth o* CHOLECALCIFEROL (VITAMIN D3) * Take 1 tablet by mouth once d * POLYETHYLENE GLYCOL 3350 17 G* Take 1 Packet by mouth once d * MAGNESIUM CITRATE ORAL SOLUTI* Drink 1/3 of bottle, wait 4hr * ISOSORBIDE MONONITRATE ER 30 * Take 1 tablet by mouth once d * Patient not taking: Reported on 10/02/2019 Problem List As Of Date 04/16/2020 Noted Resolved PAIN ABDOMEN GENERALIZED(Mesh recall) [R10.84] 04/09/2006 BOWEL OBSTRUCTION ADHESIONS [K56.50] 02/14/2007 02/12/2015 BPH with obstruction/lower urinary tract sympto*12/02/2007 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.0] 12/02/2007 Incisional hernia without mention of obstructio*06/08/2009 0 02/12/2015 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 Most people have experienced constipation at some point in their life. Though typically not serious, constipation can be both painful and frustrating. What is constipation? Constipation occurs when bowel movements become difficult or less frequent than normal. The frequency or time between bowel movements r anges widely from person to person. Some people have bowel movements shravan ral times a day while others only one to two times a week. Going longer than three days without a bowel movement is too long. After three days, the stool becomes harder and more difficult to pass. What causes constipation? Constipation is most commonly caused by inadequate fiber in the diet or a disruption of the regular diet or routine. Chronic constipat ion may be due to a poor diet, dehydration, certain medications (such as an tidepressants, strong pain medications), stress, or the pressure of other a ctivities that force you to ignore the urge to empty the bowel. Various medical conditions can also cause or aggravate const ipation. Some of the more common medical conditions that cause constipatio n include endocrine problems, such as decreased function of the thyroi d gland or diabetes. Colorectal cancer is another medical condition deric t can cause constipation but it usually also accompanied by other sympto ms including blood in the stool and weight loss. Common causes of constipation include the following: A diet low in fiber Not drinking enough water Lack of exercise Travel or another change in routine Eating large amounts of milk or cheese Stress or resisting the urge to have a bowel movement Medications strong pain medicines such as narcotics antidepressants antacids containing calcium or aluminum such as TUMS iron pills allergy medications such as antihistamines certain blood pressure medicines psychiatric medications herbal supplements Irritable bowel syndrome (IBS) Neurologic disorders including spinal cord injury and multip le sclerosis (MS) Slow transit of the colon How is constipation evaluated? Most people do not need extensive testing to evaluate consti pation. Only a small number of patients with constipation have a serious un derlying medical problem (such as poor function of the thyroid gland, diabetes, or colorectal cancer). If you have constipation that has persisted for more than tw o weeks, you should see a doctor to determine if you need further evaluat ion. For a patient who has colorectal cancer, early detection and treat ment may be life-saving. Standard evaluation for constipation includes performing blo od tests and examining the colon by colonoscopy, particularly for patient s older than 50 years.. Other tests include colonic transit studies (time it takes for stools to move through the colon) and anal manometry (measur es pressure and muscle function in the rectum and anus). Most patients with serious constipation, and without any obv ious illness to explain their symptoms, suffer from one of two problems: Colonic inertia (also called lazy colon): a condition in whi ch the colon contracts poorly and retains stool. This can be determined b y colon transit studies. Obstructed defecation: a condition in which the colon contra cts normally, but the patient is unable to expel stool from the rectum. Th is condition can be confirmed by a test called anal manometry. How can I prevent constipation? Eat a well-balanced diet with plenty of fiber. Good sources of fiber are fruits, vegetables, legumes, and whole-grain breads and cere als. Fiber and water help the colon pass stool. Most of the fiber in fruits is found in the skins, such as in apples. Fruits with seeds you can eat, like strawberries, have the most fiber. Bran is a great source of fiber: eat bran cereal or add bran cereal to other foods, like soup and yogurt. Drink eight 8-ounce glasses of water a day. (Note: Milk can cause constipation in some people.) Liquids that contain caffeine, such as coffee and soft drinks, have a dehydrating effect and may ne ed to be avoided until your bowel habits return to normal. Exercise regularly. Move your bowels when you feel the urge. How is constipation treated? Drink two to four extra glasses of water a day. Try warm liquids, especially in the morning. Add fruits and vegetables to your diet. Eat prunes and/or bran cereal. Add supplemental fiber to your diet (there are several types , such as Metamucil, Citrucel, and Benefiber). If needed, use a very mild stool softener or laxative (such as colace [docusate] or Milk of Magnesia). Do not use laxatives for mo re than two weeks without calling your health care provider, as laxative overuse can aggravate your symptoms. When should I call my health care provider? Call your health care provider if: Constipation is a new problem for you. You have blood in your stool. You are losing weight unintentionally. You have severe pain with bowel movements. Your constipation has lasted more than three weeks. Where can I learn more? National Digestive Diseases Information Clearinghouse2 [address] [place], [place] [address] www.digestive.niddk.nih.gov email: References: National Digestive Diseases Information Clearinghouse. Const ipation. digestive.niddk.nih.gov Accessed August 23, 2012. [employer]. Understanding Cons tipation. www.gastro.org. Accessed August 23, 2012. ?Copyright 3856-7480 [facility]. All ri ghts reserved This information is provided by the [facility] and is not intended to replace the medical advice of your doctor or health care provider. Please consult your health care provider for advice about a specific medical condition. For additional health information, please contact the Center for Consumer Health Information at the [facility] or toll-free extension [phone]. If you prefer, you may visit [email or web address]/ or [email or web address]. This document was last revie wed on: 2012 index #8243 Prescriptions ordered this encounter Disp Refills Start End POLYETHYLENE GLYCOL 3350 17 GRAM ORA* 14 P* 0 04/16/2020 Route: ORAL Sig: Take 1 Packet by mouth once daily. MAGNESIUM CITRATE ORAL SOLUTION 295 * 0 04/16/2020 Sig: Drink 1/3 of bottle, wait 4hrs for results. If no stool, drink next 1/3 bottle. Wait 4hrs. No results, then drink last 1/3 of bottle . For severe constipation. Encounter Status:Closed by GEO DESTINY CNP on 04/16/20 progress on 2019-10 PROGRESS HNO ID: [id number] Normal 11-06-2019 [facility] Author: Guilherme Bean Do ([id number]) Service: ? Author Type: Physician Type: Progress Notes Filed: 11/06/2019 11:05 AM Note Text: High pressure low flow consistent with obstruction. No OAB. Cysto to follow Guilherme Bean MD PROGRESS HNO ID: [id number] Normal 11-06-2019 [facility] Author: Guilherme Do ([id number]) Service: ? Author Type: Physician Type: Progress Notes Filed: 11/06/2019 12:06 PM Note Text: PHYSICIANS NOTE: CYSTOSCOPY PROCEDURE: November 06, 2019 Sign In History and Physical Exam reviewed and is unchanged. 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 Risks, benefits, alternativ es and personnel discussed with patient who consents to proceed. Sign in Communication: Completed Time Out: Team Confirms the Correct Patient, Correct Procedure; Cystoscopy, Correct Site and Site Marking (not applicable), Correct Position. Affirmation of Time Out: YES Sign Out: Sign Out Discussion: Completed Details of Procedure: After sterile prep and drape, the flexible cystoscope was pl aced through the urethra which was examined in its entirety. Urethral stricture: None The entire mucosa was examined. The scope was flexed in the dome of the bladder and used to look at the bladder in retroverted fashi on. Findings: moderate lateral lobe enlargement, no median lobe. Moderate bladder trabeculation The scope was removed with a repeat examination of the prost ate and penile urethra done during removal. The patient was scanned in the left lateral decubitus positi on. The prostate was readily identified. It measured an estimated vo lume of 40 cc. There were no cysts or nodules seen. Probe was removed. Patient tolerated the procedure well. Impression: LUTS on double therapy Plan: Discussed options including Urolift and TURP. Undecide d if he wants a procedure at this time Guilherme Bean MD cnov on 2019-11-06 CNOV Office Visit (UROSMN) Normal 11-06-20 [facility] JOSUE WILKERSON JR ([id number]) 1935 M [place] Date Time Provider Department ([id number]) 11/06/19 11:00 AM GUILHERME BEAN UROSMKenyetta During your visit today, we recorded the following informati on about you: Guilherme Bean MD 11/06/2019 12:06 PM Signed PHYSICIANS NOTE: CYSTOSCOPY PROCEDURE: November 06, 2019 Sign In History and Physical Exam reviewed and is unchanged. Primary Diagnosis: Bph with obstruction/lower ur inary tract symptoms (primary encounter diagnosis) Informed Consent Discussed: Yes. Risks, benefits, alte rnatives and personnel discussed with patient who consents to proceed. Sign in Communication: Completed Time Out: Team Confirms the Correct Patient, Correct Procedure; Cystoscopy, Correct S ite and Site Marking (not applicable), Correct Position. Affirmation of Time Out: YES Sign Out: Sign Out Discussion: Completed Details of Procedure: After sterile prep and drape, the flexible cystoscope was placed through the urethra which was examined in its entirety. Urethral stricture: None The entire mucosa was examined. The scope was flexed in the dome of the bladder and used to look at the bladder in retroverted fashi on. Findings: moderate lateral lobe enlargement, no median lobe. Moderate bladder trabeculation The scope was removed with a repeat examination of the prost ate and penile urethra done during removal. The patient was scanned in the left lateral decubitus position. The prostate was readily identified. It m easured an estimated volume of 40 cc. There were no cysts or nodules seen. Probe was removed. Patient tolerated the procedure well. Impression: LUTS on double therapy Plan: Discussed options including Urolift and TURP. Undeci ded if he wants a procedure at this time MD Flor Beltrán LPN 11/06/2019 11:36 AM Signed PRE PROCEDURE ASSESSMENT- Cysto/TRUS Procedure Indication: Cystoscopy and TRUS November 06, 2019, Time In: 1110 Latex Allergy: No Allergies reviewed and updated. Yes Pre-Procedure Vital Signs: BP: 164/88 Pulse: 69 Heart valve replacement: No Joint replacement: No Back Office UA otained: yes/in UDS Patient brought to procedure room # 6 @ time 110. Flor Murphy LPN PROCEDURE PREP-Cysto Patient ID with two(2)identifiers verified by: Flor Murphy LPN Heart valve replacement: No Joint replacement: No Pre-Procedure Antibiotics: None taken at home nor prior to p rocedure Patient Prep: Betadine Scrub to perineum and placement of St erile Drape. COMPLETED Anesthetic Given:10 cc 2% Lidocaine jelly Flor Murphy LPN UNIVERSAL PROTOCOL / SAFETY CHECKLIST Procedure to be performed: Cystoscopy, Renal Biopsy and TRUS Sign in Communication: Completed Time Out: Team Confirms the Correct Patient, Correct P rocedure, Correct Site and Site Marking, Correct Position (if applicable). Sign Out Discussion: Completed Flor Murphy LPN POST PROCEDURE NURSE ASSESSMENT Present along with physician during procedure exam. Flor welsh LPN Procedure/Indication: Cystoscopy and TRUS Instruction sheet given and reviewed and patient verbalizes understanding: yes Post Procedure Antibiotic: Cipro 500mg orally Current pain intensity is 0 on a 0-10 pain scale. 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 Referring Provider: GUILHERME BEAN [[id number]] Allergies As of Date: 11/06/2019 Noted Allergy Reaction ATENOLOL 12/26/2005 14 - Other: See Comments Comments: dizzy AUGMENTIN (AMOXICILLIN-POT CLAVUL*12/26/2005 2 - Rash CLINDAMYCIN 07/10/2017 7 - Swelling Date Reviewed: 11/06/2019 Reviewed by: Gia Niño RN - Fully Assessed Reason for Visit: Cystoscopy-1 [303] Trus Procedure [381] Patient Education [91] Primary Visit Diagnosis:BPH with obstruction/lower urinary t ract symptoms [N40.1, N13.8] Order(s):[] lidocaine urojet 2 % 11 mL topical gel (X YLOCAINE, GLYDO)Disp: Rfl: US TRANSRECTAL PROSTATE (TRUS) (POC) GUKI USE ONLY [[id number]] Order #: [id number]: 1 ciprofloxacin HCl 500 mg tab(s) (CIPRO)Disp: Rfl: Prescriptions as of 11/06/2019 Sig: MELOXICAM 15 MG TABLET Take 1 tablet by mouth once d* METOPROLOL TARTRATE ORAL Take by mouth. TAMSULOSIN 0.4 MG CAPSULE TAKE 1 CAPSULE BY MOUTH EVERY* FINASTERIDE 5 MG TABLET TAKE 1 TABLET BY MOUTH EVERY * ISOSORBIDE MONONITRATE ER 30 * Take 1 tablet by mouth once d * Patient not taking: Reported on 10/02/2019 ASPIRIN 81 MG TABLET,DELAYED * Take 81 mg by mouth once carson * METAMUCIL ORAL Take 1 teaspoonful by mouth o* CHOLECALCIFEROL (VITAMIN D3) * Take 1 tablet by mouth once d * Problem List As Of Date 11/06/2019 Noted Resolved PAIN ABDOMEN GENERALIZED(Mesh recall) [R10.84] 04/09/2006 BOWEL OBSTRUCTION ADHESIONS [K56.50] 02/14/2007 02/12/2015 BPH with obstruction/lower urinary tract sympto*12/02/2007 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.0] 12/02/2007 Incisional hernia without mention of obstructio*06/08/2009 0 02/12/2015 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] 12/01/2016 0 05/09/2017 Lymphocytosis [D72.820] 12/25/2016 Thrombocytopenia, 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] 12/25/2016 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 Yes Pre-Procedure Vital Signs: BP: 164/88 Pulse: 69 Heart valve replacement: No Joint replacement: No Back Office UA otained: yes/in UDS Patient brought to procedure room # 6 @ time 110. Flor uMrphy LPN PROCEDURE PREP-Cysto Patient ID with two(2)identifiers verified by: Flor Murphy LPN Heart valve replacement: No Joint replacement: No Pre-Procedure Antibiotics: None taken at home nor prior to p rocedure Patient Prep: Betadine Scrub to perineum and placement of St erile Drape. COMPLETED Anesthetic Given:10 cc 2% Lidocaine jelly Flor Murphy LPN UNIVERSAL PROTOCOL / SAFETY CHECKLIST Procedure to be performed: Cystoscopy, Renal Biopsy and TRUS Sign in Communication: Completed Time Out: Team Confirms the Correct Patient, Correct Procedu re, Correct Site and Site Marking, Correct Position (if applicable). Sign Out Discussion: Completed Flor Murphy LPN POST PROCEDURE NURSE ASSESSMENT Present along with physician during procedure exam. Flor welsh LPN Procedure/Indication: Cystoscopy and TRUS Instruction sheet given and reviewed and patient verbalizes understanding: yes Post Procedure Antibiotic: Cipro 500mg orally Current pain intensity is 0 on a 0-10 pain scale. 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 Prescriptions ordered this encounter Disp Refills Start End LIDOCAINE 2 % MUCOSAL JELLY IN APPLI* 11/06/2019 11/06/2019 Route: URETHRAL CIPROFLOXACIN 500 MG TABLET 11/06/2019 12/06/2019 Route: ORAL Letter Text Encounter Status:Closed by GUILHERME BEAN MD on 11/06/19 cnnurse on CNNURSE Nurse Visit (UROSMN) Normal 9 [facility] JOSUE GEORGES ([id number]) 1935 [facility] Date Time Provider Department ([id number]) 11/06/19 10:00 AM URODYNAMICS UROSMN During your visit today, we recorded the following informati on about you: Gia Niño RN 11/06/2019 10:56 AM Signed [facility] URODYNAMICS LAB URODYNAMIC PROCEDURE NOTE ID Verified by: Gia Niño RN with name and birthdate. Procedure instructions reviewed with patient prior to proced ure: Yes Currently experiencing pain: No 0 on a scale of 0 to 10 on a scale of 0-10. Does the patient have any co ncerns about safety in the home/falls?: Not at risk for falls Has the patient had 2 falls in the last year or 1 fall with injury or currently using assistive device (walker, cane, wheelchair, crutches): No What interventions were put in place to prevent falls during this visit: Instructed patient to remain seated Increased observations by caregivers No skid socks used Has patient had any history of Mitral Valve prolapse: No MED S:NONE Has patient had any history of prosthetics: No MEDS: NONE Latex allergy: No Iodine allergy: No Females- Is patient : No B/O UA: YES, negative for nitrates and leukocytes. UROFLOWMETRY Voided vol: 175 ml. Flow time: 1:42 mm:ss.S Q max: 16 ml/sec. Q av ml/sec. PVR: 60 ml. CYSTOMETROGRAM Subtracted:Yes Video: No EMG: Yes First Sensation: 93 ml Strong desire: 194 ml Max. capacity: 250 ml Maximum filling detrusor pressure 12 cm of water Detrusor overactivity associated with urge: No Detrusor overactivity associated with leakage: No Was patient assessed for VLPP / UPP No Leaks urine with valsalva /coughs: No Lowest Leak point pressure: n/a cm of water at n/a ml PRESSURE-FLOW VOIDING STUDY Did patient void with catheters in place Yes Voided: 282 ml voluntary Max Voiding Detrusor Pressure 104 cm H2O P det Q max (Max Flow): 84 cm H2O Maximum Flow Rate: 9 ml/sec Average Flow Rate: 4 ml/sec Fluro time: n/a min Vaginal Packing for prolapse support: No Comments: Cysto/TRUS to follow. Stood pt to aide void. Volun tary void. Please use Urodynamic Graph. Pt given verbal home going instructions. Pt states an unders tanding of instructions given. Gia eBan MD 11/06/2019 11:05 AM Signed High pressure low flow consistent with obstruction. No OAB . 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 TAMSULOSIN 0.4 MG CAPSULE TAKE 1 CAPSULE BY MOUTH EVERY* FINASTERIDE 5 MG TABLET TAKE 1 TABLET BY MOUTH EVERY * ASPIRIN 81 MG TABLET,DELAYED * Take 81 mg by mouth once carson * METAMUCIL ORAL Take 1 teaspoonful by mouth o* CHOLECALCIFEROL (VITAMIN D3) * Take 1 tablet by mouth once d * ISOSORBIDE MONONITRATE ER 30 * Take 1 tablet by mouth once d * Patient not taking: Reported on 10/02/2019 Medication notes this encounter METOPROLOL TARTRATE ORAL >> Gia Niño RN 11/06/2019 10:19 AM >> GIA NIÑO RN [place] Nov 06, 2019 10:19 AM Pt Unsure of strength , tks twice daily Problem List As Of Date 11/06/2019 Noted Resolved PAIN ABDOMEN GENERALIZED(Mesh recall) [R10.84] 04/09/2006 BOWEL OBSTRUCTION ADHESIONS [K56.50] 02/14/2007 02/12/2015 BPH with obstruction/lower urinary tract sympto*12/02/2007 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.0] 12/02/2007 Incisional hernia without mention of obstructio*06/08/2009 0 02/12/2015 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] 12/01/2016 0 05/09/2017 Lymphocytosis [D72.820] 12/25/2016 Thrombocytopenia, 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] 12/25/2016 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 Procedure instructions reviewed with patient prior to proced ure: Yes Currently experiencing pain: No 0 on a scale of 0 to 10 on a scale of 0-10. Does the patient have any concerns about safety in the home/ falls?: Not at risk for falls Has the patient had 2 falls in the last year or 1 fall with injury or currently using assistive device (walker, cane, wheelchair, crutches): No What interventions were put in place to prevent falls during this visit: Instructed patient to remain seated Increased observations by caregivers No skid socks used Has patient had any history of Mitral Valve prolapse: No MED S:NONE Has patient had any history of prosthetics: No MEDS: NONE Latex allergy: No Iodine allergy: No Females- Is patient : No B/O UA: YES, negative for nitrates and leukocytes. UROFLOWMETRY Voided vol: 175 ml. Flow time: 1:42 mm:ss.S Q max: 16 ml/sec. Q av ml/sec. PVR: 60 ml. CYSTOMETROGRAM Subtracted:Yes Video: No EMG: Yes First Sensation: 93 ml Strong desire: 194 ml Max. capacity: 250 ml Maximum filling detrusor pressure 12 cm of water Detrusor overactivity associated with urge: No Detrusor overactivity associated with leakage: No Was patient assessed for VLPP / UPP No Leaks urine with valsalva /coughs: No Lowest Leak point pressure: n/a cm of water at n/a ml PRESSURE-FLOW VOIDING STUDY Did patient void with catheters in place Yes Voided: 282 ml voluntary Max Voiding Detrusor Pressure 104 cm H2O P det Q max (Max Flow): 84 cm H2O Maximum Flow Rate: 9 ml/sec Average Flow Rate: 4 ml/sec Fluro time: n/a min Vaginal Packing for prolapse support: No Comments: Cysto/TRUS to follow. Stood pt to aide void. Volun tary void. Please use Urodynamic Graph. Pt given verbal home going instructions. Pt states an unders tanding of instructions given. Gia Niño RN Encounter Status:Closed by GIA NIÑO RN on 11/06/19 obsolete on 2019-10 OBSOLETE Refill (FAMPWS) Normal 10-22-2019 [facility] JOSUE GEORGES ([id number]) 1935 [place] Date Time Provider Department ([id number]) 10/22/19 LASHAWN GUO III During your visit today, we recorded the following informati on about you: Dedra Wild CMA, [place] 10/22/2019 12:38 PM Signed MONICA: 10/07/2019 NOV: none Last prescription: 08/21/2019--30 day--1 refill Pharmacy checked? Yes Patient has been identified by name and date of : Yes Pending Prescriptions Disp Refills MELOXICAM 15 MG TABLET 30 tablet 5 Sig: Take 1 tablet by mouth once daily. Take with food. CHAU: No RX INSTRUCTIONS: Pharmacy initiated this request. No need to notify patient. Dedra Wild CMA Allergies As of Date: 10/22/2019 Noted Allergy Reaction ATENOLOL 12/26/2005 14 - Other: See Comments Comments: dizzy AUGMENTIN (AMOXICILLIN-POT CLAVUL*12/26/2005 2 - Rash CLINDAMYCIN 07/10/2017 7 - Swelling Date Reviewed: 10/07/2019 Reviewed by: Jenna Alatorre LPN - Fully Assessed Reason for Visit: Refill Request [94] Visit Diagnosis:Acute pain of right knee [M25.561] Order(s):meloxicam (MOBIC) 15 mg tabletT emil 1 tablet by mouth once daily. Take with food.Disp: 30 tabletRfl: 5 Prescriptions as of 10/22/2019 Sig: MELOXICAM 15 MG TABLET Take 1 tablet by mouth once d* METOPROLOL TARTRATE ORAL Take by mouth. TAMSULOSIN 0.4 MG CAPSULE TAKE 1 CAPSULE BY MOUTH EVERY* FINASTERIDE 5 MG TABLET TAKE 1 TABLET BY MOUTH EVERY * ISOSORBIDE MONONITRATE ER 30 * Take 1 tablet by mouth once d * Patient not taking: Reported on 10/02/2019 ASPIRIN 81 MG TABLET,DELAYED * Take 81 mg by mouth once carson * METAMUCIL ORAL Take 1 teaspoonful by mouth o* CHOLECALCIFEROL (VITAMIN D3) * Take 1 tablet by mouth once d * Problem List As Of Date 10/22/2019 Noted Resolved PAIN ABDOMEN GENERALIZED(Mesh recall) [R10.84] 04/09/2006 BOWEL OBSTRUCTION ADHESIONS [K56.50] 02/14/2007 02/12/2015 BPH with obstruction/lower urinary tract sympto*12/02/2007 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.0] 12/02/2007 Incisional hernia without mention of obstructio*06/08/2009 0 02/12/2015 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] 12/01/2016 0 05/09/2017 Lymphocytosis [D72.820] 12/25/2016 Thrombocytopenia, 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 Take with food. Medications Discontinued During This Encounter meloxicam (MOBIC) 15 mg tablet 30 t* 1 08/21/2019 10/23/2019 Route: ORAL Sig: Take 1 tablet by mouth once daily. Take with food. Disc: Reason for discontinue is not on file. Encounter Status:Closed by SATYA THRASHER CNP on 10/23/19 progress on 2019-09 PROGRESS HNO ID: [id number] Normal 10-10-2019 [facility] Author: Lashawn Guo III Do ([id number]) Service: ? Author Type: Physician Type: Progress Notes Filed: 10/10/2019 6:45 PM Note Text: 24 hour Holter monitor report indicated significant number o f supraventricular ectopic beats and ventricular ectopic beats , but no significant runs of ventricular ectopy. Fastest supraventric ular run consisted of 3 beats with maximum heart rate 143 bpm. There were no runs of ventricular activity. Report is scanned Lashawn Guo III, MD, FAAFP progress on 2019-09 PROGRESS HNO ID: [id number] Normal 10-07-2019 [facility] Author: Lashawn Guo III [place] ([id number]) Service: ? Author Type: Physician Type: Progress Notes Filed: 10/07/2019 12:54 PM Note Text: Visit for Transitional Care Management CC: Josue is a 84 year old male following 8, days [facility]. Records reviewed. HPI: Pt had near LOC with lightheadedness, went to ER and had 2 d ay stay with cardiac monitoring. Feeling better, good appetite, able to w alk to office w/o lightheadedness, NOVA, chest pain. Only med change in hos pital was d/c isosorbide (had been on for yrs w/o adverse effect, but no h x of documented ASHD). Now has return of normal appetite, able to walk to office w/o stopping or need of help. 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 - tamsulosin ER (FLOMAX) 0.4 mg cap TAKE 1 CAPSULE BY MOUTH EVERYDAY AT BEDTIME - meloxicam (MOBIC) 15 mg tablet Take 1 tablet by mouth once daily. Take with food. - finasteride (PROSCAR) 5 mg tablet TAKE 1 TABLET BY MOUTH E VERY DAY - aspirin, enteric coated (ASPIRIN, ENTERIC COATED) 81 mg EC tablet Take 81 mg by mouth once daily. - PSYLLIUM HUSK (METAMUCIL ORAL) Take 1 teaspoonful by mouth once daily. - Cholecalciferol, Vitamin D3, 2,000 unit cap Take 1 tablet by mouth once daily. - isosorbide mononitrate ER (IMDUR) 30 mg 24 hr tablet Take 1 tablet by mouth once daily. (Patient not taking: Reported on 9 ) No current facility-administered medications for this visit. SOCIAL HISTORY: Social History Tobacco Use - Smoking status: Never Smoker - Smokeless tobacco: Never Used Substance Use Topics - Alcohol use: No - Drug use: No FAMILY HISTORY: FAMILY HISTORY Problem Relation Age of Onset - Prostate Cancer Brother - Prostate Cancer Brother - Heart disease Mother - Heart disease Sister REVIEW OF SYSTEMS: RESPIRATORY: Negative for cough, hemoptysis, wheezing, COPD, dyspnea or shortness of breath CARDIOVASCULAR: Negative for chest pain, leg swelling, hyper tension, CHF or palpitations GI: No nausea, vomiting, or diarrhea NEURO: No history of headaches, syncope, paralysis, seizures or tremors and or lightheadedness PHYSICAL EXAMINATION BP 108/62 Pulse 40 Temp 96.3 Resp 18 Wt 149 lb (67.6 kg) General appearance: well appearing, alert, in no acute distr ess and well-hydrated, well nourished Skin: Head: normal Eyes: Anicteric sclera. Ears: Nose/Sinuses: Oropharynx: Neck: Supple, no adenopathy; thyroid symmetric, normal size, no bruits Back: Lungs: clear to auscultation no wheezing or rhonchi Heart: irreg pulse w/o murmur or rubs. No ectopy Abdomen: Extremities: no lower leg edema Musculoskeletal: Peripheral pulses: Neuro: normal mental status IMP: orthostatic syncope in part due to isosorbide bigeminy and PACs PLAN: same medications await 24 hr Holter report follow up with Dr Arrieta as appointed detailed discussion with pt and dtr regarding suspected dx , all questions answered Lashawn Guo III MD October 07, 2019 10:13 AM cnov on 2019-10-07 CNOV Office Visit (FAMPWS) Normal 10-07-20 [place] [facility] JOSUE WILKERSON JR ([id number]) 1935 [facility] Date Time Provider Department ([id number]) 10/07/19 9:40 AM LASHAWN GUO III During your visit today, we recorded the following informati on about you: Temperature Pulse Respiration Blood pressure 96.3 degrees 58/minute 18/minute 108/62 Weight 67.6 kg Lashawn Guo III MD 10/07/2019 12:54 PM Signed Visit for Transitional Care Management CC: Josue is a 84 year old mal e following 8, days after the Hospital[facility]. Records reviewed. HPI: Pt had near LOC with lightheadedness, went to ER and had 2 d ay stay with cardiac monitoring. Feeling better, good appetit e, able to walk to office w/o lightheadedness, NOVA, chest pain. Only med change in hospita l was d/c isosorbide (had been on for yrs w/o adverse effect, but no hx of documented ASHD). Now has return of normal appetite, able t o walk to office w/o stopping or need of help. 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 - tamsulosin ER (FLOMAX) 0.4 mg cap TAKE 1 CAPSULE BY MOUTH EVERYDAY AT BEDTIME - meloxicam (MOBIC) 15 mg tablet Take 1 tablet b y mouth once daily. Take with food. - finasteride (PROSCAR) 5 mg tablet TAKE 1 TABLET BY MOUTH E VERY DAY - aspirin, enteric coated (ASPIRIN, ENTE SHANE COATED) 81 mg EC tablet Take 81 mg by mouth once daily. - PSYLLIUM HUSK (METAMUCIL ORAL) Take 1 teaspoonful by mouth once daily. - Cholecalciferol, Vitamin D3, 2,000 unit cap Take 1 tablet by mouth once daily. - isosorbide mononitrate ER (IMDUR) 30 mg 24 hr tablet Take 1 tablet by mouth once daily. (Patient not taking: Reported on 10/02/2019 ) No current facility-administered medications for this visit. SOCIAL HISTORY: Social History Tobacco Use - Smoking status: Never Smoker - Smokeless tobacco: Never Used Substance Use Topics - Alcohol use: No - Drug use: No FAMILY HISTORY: FAMILY HISTORY Problem Relation Age of Onset - Prostate Cancer Brother - Prostate Cancer Brother - Heart disease Mother - Heart disease Sister REVIEW OF SYSTEMS: RESPIRATORY: Negative for cough, hemoptysis, wheezing, COPD, dyspnea or shortness of breath CARDIOVASCULAR: Negative for chest pain, leg swelling, hyp ertension, CHF or palpitations GI: No nausea, vomiting, or diarrhea NEURO: No history of headaches, syncope, paralysis, seizures or tremors and or lightheadedness PHYSICAL EXAMINATION BP 108/62 Pulse 40 Temp 96.3 Resp 18 Wt 149 lb (67.6 kg) General appearance: well appearing, alert, in no acute distr ess and well-hydrated, well nourished Skin: Head: normal Eyes: Anicteric sclera. Ears: Nose/Sinuses: Oropharynx: Neck: Supple, no adenopathy; thyroid symmetric, normal size, no bruits Back: Lungs: clear to auscultation no wheezing or rhonchi Heart: irreg pulse w/o murmur or rubs. No ectopy Abdomen: Extremities: no lower leg edema Musculoskeletal: Peripheral pulses: Neuro: normal mental status IMP: orthostatic syncope in part due to isosorbide bigeminy and PACs PLAN: same medications await 24 hr Holter report follow up with Dr Arrieta as appointed detailed discussion with pt and dtr regarding suspected dx , all questions answered Lashawn Guo III MD October 07, 2019 10:13 AM Lashawn Guo III MD 10/07/2019 10:29 AM Signed PLAN: same medications await 24 hr Holter report follow up with Dr Arrieta as appointed Lashawn Guo III MD Referring Provider: LASHAWN GUO III [[id number]] Allergies As of Date: 10/07/2019 Noted Allergy Reaction ATENOLOL 12/26/2005 14 - Other: See Comments Comments: dizzy AUGMENTIN (AMOXICILLIN-POT CLAVUL*12/26/2005 2 - Rash CLINDAMYCIN 07/10/2017 7 - Swelling Date Reviewed: 10/07/2019 Reviewed by: Jenna E Celi TERRAZZO TILE SETTER - Fully Assessed Reason for Visit: Hospital Follow Up [177] Cmt: [facility] discharge 09/30/19 for jossy lobato Primary Visit Diagnosis:Hospital discharge follow-up [Z09] Other Visit Diagnoses:Premature atrial contractions [I49.1] Near syncope [R55] Prescriptions as of 10/07/2019 Sig: METOPROLOL TARTRATE ORAL Take by mouth. TAMSULOSIN 0.4 MG CAPSULE TAKE 1 CAPSULE BY MOUTH EVERY* MELOXICAM 15 MG TABLET Take 1 tablet by mouth once d* FINASTERIDE 5 MG TABLET TAKE 1 TABLET BY MOUTH EVERY * ASPIRIN 81 MG TABLET,DELAYED * Take 81 mg by mouth once carson * METAMUCIL ORAL Take 1 teaspoonful by mouth o* CHOLECALCIFEROL (VITAMIN D3) * Take 1 tablet by mouth once d * ISOSORBIDE MONONITRATE ER 30 * Take 1 tablet by mouth once d * Patient not taking: Reported on 10/02/2019 Problem List As Of Date 10/07/2019 Noted Resolved PAIN ABDOMEN GENERALIZED(Mesh recall) [R10.84] 04/09/2006 BOWEL OBSTRUCTION ADHESIONS [K56.50] 02/14/2007 02/12/2015 BPH with obstruction/lower urinary tract sympto*12/02/2007 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.0] 12/02/2007 Incisional hernia without mention of obstructio*06/08/2009 0 02/12/2015 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] 12/01/2016 0 05/09/2017 Lymphocytosis [D72.820] 12/25/2016 Thrombocytopenia, 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] 12/25/2016 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/2017 Venous insufficiency (chronic) (peripheral) [I8*05/03/2017 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] 05/09/2017 Acute deep vein thrombosis (DVT) of axillary ve*05/21/2017 0 06/04/2018 Chronic anticoagulation [Z79.01] 05/21/2017 07/11/2017 Hyperlipidemia [E78.5] 08/14/2018 Premature atrial contractions [I49.1] 08/14/2018 Other instructions from your clinician: PLAN: same medications await 24 hr Holter report follow up with Dr Arrieta as appointed Lashawn Guo III MD Encounter Status:Closed by LASHAWN GUO III, MD on 10/07/19 cnpn on 2019-10-06 CNPN Telephone (UROLWS) Normal 10-06-2019 [place] [facility] JOSUE GEORGES ([id number]) 1935 [place] Date Time Provider Department ([id number]) 10/06/19 CAROL ESTRELLA (JEANNETTE) UROLWS During your visit today, we recorded the following informati on about you: Mirian Lees Ma 10/06/2019 2:21 PM Signed Pt needs to be scheduled for CYSTO/TRUS and UDYN. Dr. Bean. Orders in [place]. Pt wants to be evaluated for Rezum or Urolift. Mirian Lees Ma 10/07/2019 1:37 PM Signed On schedule for 11/06. Mirian Lees Ma 11/04/2019 1:45 PM Signed Appts confirmed with patient. Mirian Lees Ma Allergies As of Date: 10/06/2019 Noted Allergy Reaction ATENOLOL 12/26/2005 14 - Other: See Comments Comments: dizzy AUGMENTIN (AMOXICILLIN-POT CLAVUL*12/26/2005 2 - Rash CLINDAMYCIN 07/10/2017 7 - Swelling Date Reviewed: 10/02/2019 Reviewed by: Renae Graham LPN - Fully Assessed Reason for Visit: need for hops scheduling [Other] Prescriptions as of 10/06/2019 Sig: METOPROLOL TARTRATE ORAL Take by mouth. TAMSULOSIN 0.4 MG CAPSULE TAKE 1 CAPSULE BY MOUTH EVERY* X MELOXICAM 15 MG TABLET Take 1 tablet by mouth once d* FINASTERIDE 5 MG TABLET TAKE 1 TABLET BY MOUTH EVERY * ISOSORBIDE MONONITRATE ER 30 * Take 1 tablet by mouth once d * Patient not taking: Reported on 10/02/2019 ASPIRIN 81 MG TABLET,DELAYED * Take 81 mg by mouth once carson * METAMUCIL ORAL Take 1 teaspoonful by mouth o* CHOLECALCIFEROL (VITAMIN D3) * Take 1 tablet by mouth once d * Problem List As Of Date 10/06/2019 Noted Resolved PAIN ABDOMEN GENERALIZED(Mesh recall) [R10.84] 04/09/2006 BOWEL OBSTRUCTION ADHESIONS [K56.50] 02/14/2007 02/12/2015 BPH with obstruction/lower urinary tract sympto*12/02/2007 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.0] 12/02/2007 Incisional hernia without mention of obstructio*06/08/2009 0 02/12/2015 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] 12/01/2016 0 05/09/2017 Lymphocytosis [D72.820] 12/25/2016 Thrombocytopenia, 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 Author Type: Physician Steamer Tender Type: Progress Notes Filed: 10/14/2019 6:07 PM Note Text: [facility] CC: Annual Prostate check HPI Earrohinit Joana Wilkerson is a 84 year old male, who has a history o f BPH with LUTS. Currently taking Flomax 0.4 mg Patient states he is having WEAK STREAM +VE NOCTURIA 3-4 times/night LAB: PSA: PSA (ng/mL) Date Value 09/12/2012 0.56 sCr: Creatinine (mg/dL) Date Value 05/26/2019 1.04 06/04/2018 1.09 12/04/2017 1.00 07/31/2017 0.90 07/10/2017 0.92 06/19/2017 0.91 05/29/2017 0.88 05/08/2017 0.96 04/17/2017 0.93 03/23/2017 0.96 Creatinine, Whole Blood (iSTAT) (mg/dL) Date Value 08/28/2017 0.90 IMAGING: No imaging today ALLERGIES: Atenolol; Augmentin [Amoxicillin-Pot Clavulanate]; Clindamyc in CURRENT MEDICATIONS: Current Outpatient Medications Medication Sig Dispense Refill - METOPROLOL TARTRATE ORAL Take by mouth. - meloxicam (MOBIC) 15 mg tablet Take 1 tablet by mouth once daily. Take with food. 30 tablet 1 - tamsulosin ER (FLOMAX) 0.4 mg cap TAKE 1 CAPSULE BY MOUTH EVERYDAY AT BEDTIME 90 capsule 3 - finasteride (PROSCAR) 5 mg tablet TAKE 1 TABLET BY MOUTH E VERY DAY 90 tablet 3 - isosorbide mononitrate ER (IMDUR) 30 mg 24 hr tablet Take 1 tablet by mouth once daily. (Patient not taking: Reported on 9 ) 90 tablet 3 - aspirin, enteric coated (ASPIRIN, ENTERIC COATED) 81 mg EC tablet Take 81 mg by mouth once daily. - PSYLLIUM HUSK (METAMUCIL ORAL) Take 1 teaspoonful by mouth once daily. - Cholecalciferol, Vitamin D3, 2,000 unit cap Take 1 tablet by mouth once daily. 30 capsule 12 No current facility-administered medications for this visit. REVIEW OF SYSTEMS GENERAL:SEE HPI, No weight loss, malaise or fevers. GENITOURINARY: No history of dysuria, frequency or incontine nce The remainder of the ROS was negative. PHYSICAL EXAMINATION Blood pressure 120/68, pulse 72, resp. rate 16, weight 68.5 kg (151 lb), SpO2 98 %. General appearance: Well appearing, alert, in no acute distr ess, well-hydrated, well nourished Abdomen: Normal abdominal exam, Abdomen soft, non-tender. Jose Cruz wel sounds normal. No masses, organomegaly CHACE: 40-50 g , non-brush and broom clipper, 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 Bean at [facility] [place] > consult to discuss Urolift or REZUM Carol Estrella, MPAS, MT, PA-C Electronically signed cnov on 2019-10-02 CNOV Office Visit (UROLWS) Normal 10-02-20 19 [facility] ROCK GEORGESJOSUE Bernard ([id number]) 1935 [facility] Date Time Provider Department ([id number]) 10/02/19 11:30 AM CAROL ESTRELLA (JEANNETTE) UROLWS During your visit today, we recorded the following informati on about you: Pulse Respiration Blood pressure Weight 72/minute 16/minute 120/68 68.5 kg JEANNETTE Carter 10/14/2019 6:07 PM Signed [facility] CC: Annual Prostate check HPI Josue Bernard Rock Georges is a 84 year old male, who has a his tory of BPH with LUTS. Currently taking Flomax 0.4 mg Patient states he is having WEAK STREAM +VE NOCTURIA 3-4 times/night LAB: PSA: PSA (ng/mL) Date Value 09/12/2012 0.56 sCr: Creatinine (mg/dL) Date Value 05/26/2019 1.04 06/04/2018 1.09 12/04/2017 1.00 07/31/2017 0.90 07/10/2017 0.92 06/19/2017 0.91 05/29/2017 0.88 05/08/2017 0.96 04/17/2017 0.93 03/23/2017 0.96 Creatinine, Whole Blood (iSTAT) (mg/dL) Date Value 08/28/2017 0.90 IMAGING: No imaging today ALLERGIES: Atenolol; Augmentin [Amoxicillin-Pot Clavulanate]; Clindamyc in CURRENT MEDICATIONS: Current Outpatient Medications Medication Sig Dispense Refill - METOPROLOL TARTRATE ORAL Take by mouth. - meloxicam (MOBIC) 15 mg tablet Take 1 tablet b y mouth once daily. Take with food. 30 tablet 1 - tamsulosin ER (FLOMAX) 0.4 mg cap TAKE 1 CAPSULE BY MOUTH EVERYDAY AT BEDTIME 90 capsule 3 - finasteride (PROSCAR) 5 mg tablet TAKE 1 TABLET BY MOUTH EVERY DAY 90 tablet 3 - isosorbide mononitrate ER (IMDUR) 30 mg 24 hr tablet Take 1 tablet by mouth once daily. (Patient not taking: Reported on 10/02/2019 ) 90 tablet 3 - aspirin, enteric coated (ASPIRIN, ENTE SHANE COATED) 81 mg EC tablet Take 81 mg by mouth once daily. - PSYLLIUM HUSK (METAMUCIL ORAL) Take 1 teaspoonful by mouth once daily. - Cholecalciferol, Vitamin D3, 2,000 unit cap Take 1 tablet by mouth once daily. 30 capsule 12 No current facility-administered medications for this visit. REVIEW OF SYSTEMS GENERAL:SEE HPI, No weight loss, malaise or fevers. GENITOURINARY: No history of dysuria, frequency or incontine nce The remainder of the ROS was negative. PHYSICAL EXAMINATION Blood pressure 120/68, pulse 72, resp. rate 16, weight 68.5 kg (151 lb), SpO2 98 %. General appearance: Well ron earing, alert, in no acute distress, well-hydrated, well nourished Abdomen: Normal abdominal exam, Abdomen soft, non-tender. Bowel sounds normal. No masses, organomegaly CHACE: 40-50 g , non-brush and broom clipper, 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 Bean at [facility] [place] > consult to discuss Urolift or REZUM Carol Estrella, JESSICA, MT, PA-C Electronically signed Referring Provider: SELF [[id number]] Allergies As of Date: 10/02/2019 Noted Allergy Reaction ATENOLOL 12/26/2005 14 - Other: See Comments Comments: dizzy AUGMENTIN (AMOXICILLIN-POT CLAVUL*12/26/2005 2 - Rash CLINDAMYCIN 07/10/2017 7 - Swelling Date Reviewed: 10/02/2019 Reviewed by: Renae Graham LPN - Fully Assessed Reason for Visit: Established Patient [175] Cmt: yearly Primary Visit Diagnosis:BPH with urinary obstruction [N40.1, N13.8] Order(s):CYSTO/TRUS ONLY [[id number]] Order #: [id number] URODYNAMICS [[id number]] Order #: [id number] Prescriptions as of 10/02/2019 Sig: METOPROLOL TARTRATE ORAL Take by mouth. MELOXICAM 15 MG TABLET Take 1 tablet by mouth once d* TAMSULOSIN 0.4 MG CAPSULE TAKE 1 CAPSULE BY MOUTH EVERY* FINASTERIDE 5 MG TABLET TAKE 1 TABLET BY MOUTH EVERY * ISOSORBIDE MONONITRATE ER 30 * Take 1 tablet by mouth once d * Patient not taking: Reported on 10/02/2019 ASPIRIN 81 MG TABLET,DELAYED * Take 81 mg by mouth once carson * METAMUCIL ORAL Take 1 teaspoonful by mouth o* CHOLECALCIFEROL (VITAMIN D3) * Take 1 tablet by mouth once d * Problem List As Of Date 10/02/2019 Noted Resolved PAIN ABDOMEN GENERALIZED(Mesh recall) [R10.84] 04/09/2006 BOWEL OBSTRUCTION ADHESIONS [K56.50] 02/14/2007 02/12/2015 BPH with obstruction/lower urinary tract sympto*12/02/2007 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.0] 12/02/2007 Incisional hernia without mention of obstructio*06/08/2009 0 02/12/2015 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] 12/01/2016 0 05/09/2017 Lymphocytosis [D72.820] 12/25/2016 Thrombocytopenia, 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] 12/25/2016 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 Author Type: Physician Type: Progress Notes Filed: 09/12/2019 2:24 PM Note Text: Josue Wilkerson Jr presents with pain and painful movement in the left knee. Associated symptoms are, stiffness. Symptoms began 2 m onths ago and since then have been improving. The pain is rated as 0-3 on a scale of 1-10 walking and standing. Symptoms are not a result of a n injury. He started taking Mobic a little over 2 weeks ago, and repor ts significant improvement in symptoms. 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 Take with food. finasteride (PROSCAR) 5 mg tablet TAKE 1 TABLET BY MOUTH YARON DAY isosorbide mononitrate ER (IMDUR) 30 mg 24 hr tablet Take 1 tablet by mouth once daily. tamsulosin ER (FLOMAX) 0.4 mg cap TAKE 1 CAPSULE BY MOUTH DA YAMILA AT BEDTIME. aspirin, enteric coated (ASPIRIN, ENTERIC COATED) 81 mg EC t ablet Take 81 mg by mouth once daily. PSYLLIUM HUSK (METAMUCIL ORAL) Take 1 teaspoonful by mouth o nce daily. Cholecalciferol, Vitamin D3, 2,000 unit cap Take 1 tablet by mouth once daily. No current facility-administered medications on file prior t o visit. Physical Exam Findings: General exam: Normal, Extremeties left knee tenderness over MCL and medial joint l ine, active ROM , Passive ROM normal, crepitation present and effusion a bsent. No significant instability with ligament testing x-ray shows chondrocalcinosis, OA Assessment: left knee medial joint pain, OA bilateral knees chondrocalcinosis Plan: 1. Patient Instructions: continue mobic as directed 2. handout given for home exercises discussed returning for cortisone injection should symptoms worsen. Miguel Mao, DO PROGRESS HNO ID: [id number] Normal 09-12-2019 [facility] Author: Yovana Garcia RN [place] ([id number]) Service: ? Author Type: ? Type: Progress Notes Filed: 09/12/2019 2:24 PM Note Text: AMB ROOMING INTAKE FLOWSHEET DATA Pain Pain Level: (0-3) Pain Location: Knee-Left Description: Sharp Duration Amount of Time: 2 Duration Units: Months Frequency: Intermittent Intervention: Medication Patient presents with: New Patient: left knee pain, REF: Yovani Thrasher, xray 08-19-19 Pt. began having intermittent medial left knee pain approxim ately 2 months ago. He states it is most painful with WB and at HS. He stat es at times it is sharp and he is afraid he will fall. He is vision impa ired. He tried tylenol without relief and since being on meloxicam 15 mg da yamila, has obtained quite a bit of relief. He also c/o stiffness. cnov on 2019-09-12 CNOV Office Visit (FRFHWS) Normal 09-12-20 [place] JOSUE Rojas JR ([id number]) 1935 [facility] Date Time Provider Department ([id number]) 09/12/19 1:40 PM MIGUEL MAO V FRFHWS During your visit today, we recorded the following informati on about you: Yovana Garcia RN 09/12/2019 2:24 PM Signed AMB ROOMING INTAKE FLOWSHEET DATA Pain Pain Level: (0-3) Pain Location: Knee-Left Description: Sharp Duration Amount of Time: 2 Duration Units: Months Frequency: Intermittent Intervention: Medication Patient presents with: New Patient: left knee pain, REF: Yovani Thrasher, xray 08-19-19 Pt. began having intermitten t medial left knee pain approximately 2 months ago. He states it is most painful with WB and at HS. He states at times it is sharp and he is afraid he will fall. He is vis ion impaired. He tried tylenol without relief and since being on meloxicam 15 mg daily, has o btained quite a bit of relief. He also c/o stiffness. Miguel Mao DO 09/12/2019 2:24 PM Signed Josue Wilkerson Jr presents with pain and painful movement in the left knee. Associated symptoms are, stiffness. Symptoms began 2 months ago and since then have been improving. The pain is rated as 0 -3 on a scale of 1-10 walking and standing. Symptoms are not a result of an injury. He started taking Mobic a little over 2 weeks ago, and repor ts significant improvement in symptoms. 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 Take with food. finasteride (PROSCAR) 5 mg tablet TAKE 1 TABLET BY MOUTH YARON isosorbide mononitrate ER (IMDUR) 30 mg 24 hr tablet Take 1 tablet by mouth once daily. tamsulosin ER (FLOMAX) 0.4 mg cap TAKE 1 CAPSULE BY MOUTH DAILY AT BEDTIME. aspirin, enteric coated (ASP IRIN, ENTERIC COATED) 81 mg EC tablet Take 81 mg by mouth once daily. PSYLLIUM HUSK (METAMUCIL ORAL) Take 1 teaspoonful by mouth o nce daily. Cholecalciferol, Vitamin D3, 2,000 unit cap Take 1 tablet by mouth once daily. No current facility-administered medications on file prior t o visit. Physical Exam Findings: General exam: Normal, Extremeties left knee tenderness over MCL and me dial joint line, active ROM , Passive ROM normal, crepitation present and effusion absent. No significant instability with ligament testing x-ray shows chondrocalcinosis, OA Assessment: left knee medial joint pain, OA bilateral knees chondrocalcinosis Plan: 1. Patient Instructions: continue mobic as directed 2. handout given for home exercises discussed returning for cortisone injection should symptoms worsen. DO Miguel Araya DO 09/12/2019 2:24 PM Signed Thank you for choosing the [facility] for your acute care needs. [facility] treats minor infections, rashes and injuries. It is our mission for our patie nts to be healthy. A primary care relationship with the physician allows for continuity of care, counseling, a nd maintenance of preventive health care needs. [facility] does not replace the relationship or need for a primary care physician. For information about establishing with a primary care physician or booking an appointment, please call [phone] or speak with any Patient Service [facility] e. Hours: Sunday through Sunday 7:30 am to 7:00 pm. Sunday and Sunday: 8:00 am to 2:30 pm. Referring Provider: SATYA THRASHER [[id number]] Allergies As of Date: 09/12/2019 Noted Allergy Reaction ATENOLOL 12/26/2005 14 - Other: See Comments Comments: dizzy AUGMENTIN (AMOXICILLIN-POT CLAVUL*12/26/2005 2 - Rash CLINDAMYCIN 07/10/2017 7 - Swelling Date Reviewed: 09/12/2019 Reviewed by: Yovana Garcia RN - Fully Assessed Reason for Visit: New Patient [172] Cmt: left knee pain, REF: Yovani Thrasher, xray 1 0-1-19 Primary Visit Diagnosis:Chondrocalcinosis of left knee [M11. 262] Other Visit Diagnosis:Primary osteoarthritis of both knees [ M17.0] Prescriptions as of 09/12/2019 Sig: MELOXICAM 15 MG TABLET Take 1 tablet by mouth once d* FINASTERIDE 5 MG TABLET TAKE 1 TABLET BY MOUTH EVERY * ISOSORBIDE MONONITRATE ER 30 * Take 1 tablet by mouth once d * TAMSULOSIN 0.4 MG CAPSULE TAKE 1 CAPSULE BY MOUTH DAILY* ASPIRIN 81 MG TABLET,DELAYED * Take 81 mg by mouth once carson * METAMUCIL ORAL Take 1 teaspoonful by mouth o* CHOLECALCIFEROL (VITAMIN D3) * Take 1 tablet by mouth once d * Medication notes this encounter ASPIRIN 81 MG TABLET,DELAYED RELEASE >> Yovana Garcia RN 09/12/2019 1:32 PM >> YOVANA GARCIA RN SunSep 12, 2019 1:32 PM takes every other day Problem List As Of Date 09/12/2019 Noted Resolved PAIN ABDOMEN GENERALIZED(Mesh recall) [R10.84] INVALID FOR*0 02/12/2015 BOWEL OBSTRUCTION ADHESIONS [K56.50] INVALID FOR*02/12/2015 BPH with obstruction/lower urinary tract sympto*INVALID FOR* 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.0] INVALID FOR* Incisional hernia without mention of obstructio*INVALID FOR* 02/12/2015 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] INVALID FOR* 05/09/2017 Lymphocytosis [D72.820] INVALID FOR* Thrombocytopenia, 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 [facility] treats minor infections, rashes and injuries. It is our mission for our patients to be healthy. A primary care relationship with the physician allows for continuity of car e, counseling, and maintenance of preventive health care needs. [facility] does not replace the relationship or need for a primary care physician. For information about establishing with a primary care physi ольга or booking an appointment, please call [phone] or speak with any Patient Service Representativ e. Hours: Sunday through Sunday 7:30 am to 7:00 pm. Sunday and Sunday: 8:00 am to 2:30 pm. Encounter Status:Closed by MIGUEL MAO DO, V on 09/12/19 obsolete on 2019-08 OBSOLETE Refill (UROLWS) Normal 09-07-2019 [facility] JOSUE GEORGES ([id number]) 1935 [facility] Time Provider Department ([id number]) 09/07/19 CAROL ESTRELLA) UROLWS During your visit today, we recorded the following informati on about you: Allergies As of Date: 09/07/2019 Noted Allergy Reaction ATENOLOL 12/26/2005 14 - Other: See Comments Comments: dizzy AUGMENTIN (AMOXICILLIN-POT CLAVUL*12/26/2005 2 - Rash CLINDAMYCIN 07/10/2017 7 - Swelling Date Reviewed: 08/19/2019 Reviewed by: Caleb Ray LPN - Fully Assessed Reason for Visit: Refill Request [94] Order(s):tamsulosin ER (FLOMAX) 0.4 mg capTAKE 1 CAPSULE BY MOUTH EVERYDAY AT BEDTIMEDisp: 90 capsuleRfl: 3 Prescriptions as of 09/07/2019 Sig: TAMSULOSIN 0.4 MG CAPSULE TAKE 1 CAPSULE BY MOUTH EVERY* MELOXICAM 15 MG TABLET Take 1 tablet by mouth once d* FINASTERIDE 5 MG TABLET TAKE 1 TABLET BY MOUTH EVERY * ISOSORBIDE MONONITRATE ER 30 * Take 1 tablet by mouth once d * ASPIRIN 81 MG TABLET,DELAYED * Take 81 mg by mouth once carson * METAMUCIL ORAL Take 1 teaspoonful by mouth o* CHOLECALCIFEROL (VITAMIN D3) * Take 1 tablet by mouth once d * Problem List As Of Date 09/07/2019 Noted Resolved PAIN ABDOMEN GENERALIZED(Mesh recall) [R10.84] INVALID FOR*0 02/12/2015 BOWEL OBSTRUCTION ADHESIONS [K56.50] INVALID FOR*02/12/2015 BPH with obstruction/lower urinary tract sympto*INVALID FOR* 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.0] INVALID FOR* Incisional hernia without mention of obstructio*INVALID FOR* 02/12/2015 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] INVALID FOR* 05/09/2017 Lymphocytosis [D72.820] INVALID FOR* Thrombocytopenia, 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] INVALID FOR* 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*INVALID FOR* Venous insufficiency (chronic) (peripheral) [I8*INVALID FOR* 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 Disc: Reason for discontinue is not on file. Encounter Status:Closed by CAROL ESTRELLA PA-C on 9 xr knee 4v ap/pa both+lat/liane lt on 2019-08-19 XR KNEE 4V AP/PA * * *Final Report* * * Normal 08-19-2019 [place] BOTH+LAT/LIANE LT DATE OF EXAM: Aug 19 2019 2:54PM Clinic WOX [id number] - XR KNEE 4V AP/PA BOTH+LAT/LIANE LT / [id number] [place] PROCEDURE REASON: Left knee pain, unspecified chronicity ([id number]) * * * * Physician Interpretation * * * * HISTORY: pt states pain for a few weeks anterior lower left knee, no inj. Left knee pain, unspecified chronicity . TECHNIQUE: XR KNEE 4V AP/PA BOTH+LAT/LIANE LT Laterality: LEFT Number of different views (projections): 4 COMPARISON: None RESULT: There is no evidence of suprapatellar effusion or fracture. Extensive atherosclerotic arterial calcification. There is multifocal chondrocalcinosis. Early degenerative arthritis with small o steophytes and minimal joint space loss. - IMPRESSION: Chondrocalcinosis and early degenerative arthritis. Dry Folder Cloth: PSCB Transcribe Date/Time: Aug 20 2019 11:58A Dictated by : JOVANI REVELES MD This examination was interpreted and the report reviewed and electronically signed by: JOVANI REVELES MD on Aug 20 2019 11:59AM EST [id number] progress on 2019-08 PROGRESS HNO ID: [id number] Normal 08-19-2019 [facility] Author: Kiana Goodman (Rt) Cleve Elliott Do ([id number]) Service: ? Author Type: Elementary Substitute Teacher Type: Progress Notes Filed: 08/19/2019 2:54 PM Note Text: Radiology Service Progress Note PATIENT NAME: Josue Wilkerson Jr DATE OF SERVICE: August 19, 2019 TIME: 2:33 PM PATIENT IDENTITY VERIFICATION COMPLETED USING TWO (2) METHOD S: Name and Date of confirmed by patient verbally. PATIENT GENDER DATA: Male PATIENT RELEVANT IMPLANT DATA REVIEWED: Not Applicable RADIOLOGY DEPARTMENT: General X-ray: Exam(s) Completed: Jose sy Extremity X-Ray(s): Knee, AP / Lat / Tunne / Merchant Left: PERIPHERAL IV DATA: Not applicable SIGNED BY: RT Sandro August 19, 2019 2:33 PM PROGRESS HNO ID: [id number] Normal 08-19-2019 [facility] Author: Satya Thrasher [place] ([id number]) Service: ? Author Type: Nurse Practitioner Type: Progress Notes Filed: 08/19/2019 3:07 PM Note Text: Chief Complaint Patient presents with: Knee Pain: left x 2 months Imm/Inj: Flu Vaccine HPI Josue Wilkerson Jr is a 84 year old male who presents here to day for Above Complaints. Pain Left knee with weight bearing. Off and on f or 2 months, no injury, trauma or falls. Denies any redness, swelling or warm to touch. Initially both knees were aching, then right knee improved. Describes as just pain with feeling as though knee will buckle and not hold him up. Denies pain with sitting, only with walking. States will a maynor at night for first few minutes after getting into bed. The ROS is otherwise negative. Past medical history, appointments, medications, allergies r eviewed. Patient Allergies ALLERGIES Allergen Reactions - Atenolol Other: See Comments dizzy - Augmentin [Amoxicil* Rash - Clindamycin Swelling Current Medications Current Outpatient Medications on File Prior to Visit: finasteride (PROSCAR) 5 mg tablet TAKE 1 TABLET BY MOUTH YARON RY DAY isosorbide mononitrate ER (IMDUR) 30 mg 24 hr tablet Take 1 tablet by mouth once daily. tamsulosin ER (FLOMAX) 0.4 mg cap TAKE 1 CAPSULE BY MOUTH DA YAMILA AT BEDTIME. aspirin, enteric coated (ASPIRIN, ENTERIC COATED) 81 mg EC t ablet Take 81 mg by mouth once daily. PSYLLIUM HUSK (METAMUCIL ORAL) Take 1 teaspoonful by mouth o nce daily. Cholecalciferol, Vitamin D3, 2,000 unit cap Take 1 tablet by mouth once daily. No current facility-administered medications on file prior t o visit. Previous Medical History PAST MEDICAL HISTORY Diagnosis Date - Acute deep vein thrombosis (DVT) of axillary vein of left upper extremity (HCC) 05/21/2017 - Hypertrophy of prostate with urinary obstruction and other lower urinary tract symptoms (LUTS) Previous Surgical History PAST SURGICAL HISTORY Procedure Laterality Date - COLONOSCOP W/ OR W/O [facility] [place] [facility] 02/09/2017 repeat 10 yrs - COLONOSCOPY 2003 - HERNIA REPAIR HX 90s bilateral inguinal - LAPARCOPIC LYSIS OF ADHESIONS 2001 - PAST SURGICAL HISTORY OF 2000 repair or ruptured bowel - REPAIR INCISIONAL HERNIA 2003 Family History FAMILY HISTORY Problem Relation Age of Onset - Prostate Cancer Brother - Prostate Cancer Brother - Heart disease Mother - Heart disease Sister Social History Social History Socioeconomic History Marital status: Single Spouse name: Not on file Number of children: Not on file Years of education: Not on file Highest education level: Not on file Occupational History Not on file Social Needs Financial resource strain: Not on file Food insecurity: Worry: Not on file Inability: Not on file Transportation needs: Medical: Not on file Non-medical: Not on file Tobacco Use Smoking status: Never Smoker Smokeless tobacco: Never Used Substance and Sexual Activity Alcohol use: No Drug use: No Sexual activity: Never Lifestyle Physical activity: Days per week: Not on file Minutes per session: Not on file Stress: Not on file Relationships Social connections: Talks on phone: Not on file Gets together: Not on file Attends episcopalian service: Not on file Active member of club or organization: Not on file Attends meetings of clubs or organizations: Not on file Relationship status: Not on file Intimate partner violence: Fear of current or ex partner: Not on file Emotionally abused: Not on file Physically abused: Not on file Forced sexual activity: Not on file Other Topics Concerns: Not on file Social History Narrative Not on file EXAM: BP 110/66 Pulse 68 Temp 36.5 ?C (97.7 ?F) Resp 16 Wt 68 kg (150 lb) BMI 26.78 kg/m? General Appearance: Well appearing, alert, in no acute distr ess, well-hydrated, well nourished. Antalgic gait. Neck: Supple, no adenopathy; thyroid symmetric, normal size, no bruits. Lungs: lungs clear to auscultation. No wheezing, rhonchi, ra les. Heart: RRR without murmur, gallop, or rubs. No ectopy. Musculoskeletal: No joint swelling, deformity, or tenderness , Full flexion and extension. Negative valgus/varus laxity with stress-bilaterally. Mild click felt with Rufino Maneuver-L eft. Peripheral Pulses: Capillary refill <2secs, strong periphera l pulses. ASSESSMENT/PLAN: 1. Left knee pain, unspecified chronicity - ICD9: 719.46, IC D10: M25.562 (primary diagnosis) -Will get xray today, ? Meniscus tear. Recommend icing prn. Trial of Tylenol Arthritis and referral to Ortho. - XR KNEE GENERAL 4V AP BOTH/PA BOTH/LAT/MERC LT - CONSULT TO ORTHOPAEDICS 2. Need for vaccination - ICD9: V05.9, ICD10: Z23 - INFLUENZA SEASONAL HIGH DOSE AGE 65+ Satya Thrasher, MSN TRIM SAWYER.MANAGER DECISION SUPPORT cnov on 2019-08-19 CNOV Office Visit (FAMPWS) Normal 08-19-20 [place] [facility] JOSUE WILKERSON JR ([id number]) 1935 M [place] Date Time Provider Department ([id number]) 08/19/19 1:40 PM [facility] your visit today, we recorded the following informati on about you: Temperature Pulse Respiration Blood pressure 97.7 degrees 68/minute 16/minute 110/66 Weight 68 kg Satya Thrasher MSN TRIM SAWYER.MANAGER DECISION SUPPORT 08/19/2019 3:07 PM Signed Chief Complaint Patient presents with: Knee Pain: left x 2 months Imm/Inj: Flu Vaccine HPI Josue Wilkerson Jr is a 84 year old male who presents here to day for Above Complaints. Pain Left knee with weight bearing. Off and on for 2 months, no injury, trauma or falls. Denies any redness, swelling or war m to touch. Initially both knees were aching, then r ight knee improved. Describes as just pain with feeling as though knee will b uckle and not hold him up. Denies pain with sitting, only with walking. States will ache at night for first few minutes after getting into bed. The ROS is otherwise negative. Past medical history, appointments, medications, allergies r [place]. Patient Allergies ALLERGIES Allergen Reactions - Atenolol Other: See Comments dizzy - Augmentin [Amoxicil* Rash - Clindamycin Swelling Current Medications Current Outpatient Medications on File Prior to Visit: finasteride (PROSCAR) 5 mg tablet TAKE 1 TABLET BY MOUTH isosorbide mononitrate ER (IMDUR) 30 mg 24 hr tablet Take 1 tablet by mouth once daily. tamsulosin ER (FLOMAX) 0.4 mg cap TAKE 1 CAPSULE BY MOUTH DAILY AT BEDTIME. aspirin, enteric coated (ASP IRIN, ENTERIC COATED) 81 mg EC tablet Take 81 mg by mouth once daily. PSYLLIUM HUSK (METAMUCIL ORAL) Take 1 teaspoonful by mouth o nce daily. Cholecalciferol, Vitamin D3, 2,000 unit cap Take 1 tablet by mouth once daily. No current facility-administered medications on file prior t o visit. Previous Medical History PAST MEDICAL HISTORY Diagnosis Date - Acute deep vein thrombosis (DVT) of axillary vein of lef t upper extremity (HCC) 05/21/2017 - Hypertrophy of prostate with urinary obstruction and other lower urinary tract symptoms (LUTS) Previous Surgical History PAST SURGICAL HISTORY Procedure Laterality Date - COLONOSCOP W/ OR W/O [facility] SPEC 02/09/2017 repeat 10 yrs - COLONOSCOPY 2003 - HERNIA REPAIR HX 90s bilateral inguinal - LAPARCOPIC LYSIS OF ADHESIONS 2001 - PAST SURGICAL HISTORY OF 2000 repair or ruptured bowel - REPAIR INCISIONAL HERNIA 2003 Family History FAMILY HISTORY Problem Relation Age of Onset - Prostate Cancer Brother - Prostate Cancer Brother - Heart disease Mother - Heart disease Sister Social History Social History Socioeconomic History Marital status: Single Spouse name: Not on file Number of children: Not on file Years of education: Not on file Highest education level: Not on file Occupational History Not on file Social Needs Financial resource strain: Not on file Food insecurity: Worry: Not on file Inability: Not on file Transportation needs: Medical: Not on file Non-medical: Not on file Tobacco Use Smoking status: Never Smoker Smokeless tobacco: Never Used Substance and Sexual Activity Alcohol use: No Drug use: No Sexual activity: Never Lifestyle Physical activity: Days per week: Not on file Minutes per session: Not on file Stress: Not on file Relationships Social connections: Talks on phone: Not on file Gets together: Not on file Attends episcopalian service: Not on file Active member of club or organization: Not on file Attends meetings of clubs or organizations: Not on file Relationship status: Not on file Intimate partner violence: Fear of current or ex partner: Not on file Emotionally abused: Not on file Physically abused: Not on file Forced sexual activity: Not on file Other Topics Concerns: Not on file Social History Narrative Not on file EXAM: BP 110/66 Pulse 68 Temp 36.5 ?C (97.7 ?F) Resp 16 Wt 68 kg (150 lb) BMI 26.78 kg/m? General Appearance: Well ron earing, alert, in no acute distress, well-hydrated, well nourished. Antalgic gait. Neck: Supple, no adenopathy; thyroid symmetric, normal size, no bruits. Lungs: lungs clear to auscultation. No wheezing, rhonchi, ra les. Heart: RRR without murmur, gallop, or rubs. No ectopy. Musculoskeletal: No joint swelling, defo rmity, or tenderness, Full flexion and extension. Negative valgus/varus laxity with stress-bilate rally. Mild click felt with Rufino Maneuver-Left. Peripheral Pulses: Capillary refill <2secs, strong periphera l pulses. ASSESSMENT/PLAN: 1. Left knee pain, unspecified chronicity - ICD9: 719.46, IC D10: M25.562 (primary diagnosis) -Will get xray today, ? Meniscus tear. Recommend icing prn. Trial of Tylenol Arthritis and referral to Ortho. - XR KNEE GENERAL 4V AP BOTH/PA BOTH/LAT/MERC LT - CONSULT TO ORTHOPAEDICS 2. Need for vaccination - ICD9: V05.9, ICD10: Z23 - INFLUENZA SEASONAL HIGH DOSE AGE 65+ Satya Thrasher, MSN TRIM SAWYER.MANAGER DECISION SUPPORT Satya Thrasher, MSN TRIM SAWYER.MANAGER DECISION SUPPORT 08/19/2019 1:55 PM Signed 1. Recommend Tylenol Arthritis, 500 mg tablet, 2 tablets twi ce. Referring Provider: SELF [200] Allergies As of Date: 08/19/2019 Noted Allergy Reaction ATENOLOL 12/26/2005 14 - Other: See Comments Comments: dizzy AUGMENTIN (AMOXICILLIN-POT CLAVUL*12/26/2005 2 - Rash CLINDAMYCIN 07/10/2017 7 - Swelling Date Reviewed: 08/19/2019 Reviewed by: Caleb Ray LPN - Fully Assessed Reason for Visit: Knee Pain [132] Cmt: left x 2 months Imm/Inj [58] Cmt: Flu Vaccine Reason For Visit History Recorded Primary Visit Diagnosis:Left knee pain, unspecified chronici ty [M25.562] Other Visit Diagnosis:Need for vaccination [Z23] Order(s):INFLUENZA SEASONAL HIGH DOSE AGE 65+ [09039XI D] Order #: [id number] XR KNEE GENERAL 4V AP BOTH/PA BOTH/LAT/MERC LT [2346106] Ord er #: [id number] FUTURE CONSULT TO ORTHOPAEDICS [9089] Order #: [id number]: 1 Prescriptions as of 08/19/2019 Sig: FINASTERIDE 5 MG TABLET TAKE 1 TABLET BY MOUTH EVERY * ISOSORBIDE MONONITRATE ER 30 * Take 1 tablet by mouth once d * TAMSULOSIN 0.4 MG CAPSULE TAKE 1 CAPSULE BY MOUTH DAILY* ASPIRIN 81 MG TABLET,DELAYED * Take 81 mg by mouth once carson * METAMUCIL ORAL Take 1 teaspoonful by mouth o* CHOLECALCIFEROL (VITAMIN D3) * Take 1 tablet by mouth once d * Problem List As Of Date 08/19/2019 Noted Resolved PAIN ABDOMEN GENERALIZED(Mesh recall) [R10.84] INVALID FOR*0 02/12/2015 BOWEL OBSTRUCTION ADHESIONS [K56.50] INVALID FOR*02/12/2015 BPH with obstruction/lower urinary tract sympto*INVALID FOR* 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.0] INVALID FOR* Incisional hernia without mention of obstructio*INVALID FOR* 02/12/2015 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 Recommend Tylenol Arthritis, 500 mg tablet, 2 tablets twi ce. Encounter Status:Closed by SATYA THRASHER CNP on 08/19/19 Vital Signs Vital Sign Description Value / Unit Date Location The following section is limited to 5 en tries per type and includes entries from the following time range: 20200810 - 20200721 2. [facility] 97.2 [facility]deg[id number] Body weight 70.53 kg 08-10-2020 [facility] ([id number]) BP Diastolic 84 mm[Hg] 08-10-2020 [facility] ([id number]) BP Systolic 132 mm[Hg] 08-10-2020 [facility] ([id number]) Pulse (Heart Rate) 54 /[id number] Encounters Date Type Reason Provider Location 08-10-2020 - Patient encounter B-cell lymphoma Tr Mills Hematol ogy/Oncology 08-10-2020 procedure (clinical) Comment: B-cell lymphoma of extranoda l site (HCC) (Primary Dx) 08-16-2020 - 08-16-2020 Refill Knee pain Lashawn Guo [facility] [place] Comment: Refill Request 08-03-2020 - 08-03-2020 Refill Carol (Jeannette) Airam [facility] Comment: Rx Refills 08-04-2020 - 08-04-2020 Telephone encounter [facility] Hematology/Oncology Comment: Appointment Plan of Treatment Plan Description Date Location DIABETES SCREEN DIABETES SCREEN 08-10-2023 - [facility] 08-10-2023 ([id number]) DIABETES SCREEN DIABETES SCREEN 05-26-2022 - [facility] 05-26-2022 ([id number]) INFLUENZA (#1) INFLUENZA (#1) 2020 - [facility] 07-20-2020 ([id number]) ADVANCE DIRECTIVE ADVANCE DIRECTIVE 01-04-2012 - [facility] inic DISCUSSION DISCUSSION 01-04-2012 ([id number]) SHINGRIX VACCINE (1 of SHINGRIX VACCINE (1 of 1987 - [facility] 2) 2) 1987 ([id number]) DTAP,TDAP,TD (1 - Tdap) DTAP,TDAP,TD (1 - Tdap) 02-21-1956 - [facility] 02-21-1954 ([id number]) no information [facility] ([id number]) no information [facility] ([id number]) Immunizations Vaccine Notes Status Date Location Influenza Vaccine, influenza virus (completed) 08-24-2012 - [facility] Split-Non Spec vaccine, unspecified 08-24-2012 (4419 5) formulation Influenza Vaccine, influenza virus (completed) 08-26-2011 - [facility] Split-Non Spec vaccine, unspecified 08-26-2011 (4419 5) formulation Influenza Seasonal - influenza, high dose (completed) 08-19-2019 - [facility] High Dose - Age 65+ seasonal, 08-19-2019 (81274) preservative-free Influenza Seasonal - influenza, high dose (completed) 07-31-2018 - [facility] High Dose - Age 65+ seasonal, 07-31-2018 (32113) preservative-free Influenza Seasonal - influenza, high dose (completed) 08-31-2017 - [facility] High Dose - Age 65+ seasonal, 08-31-2017 (98003) preservative-free influenza, high-dose, influenza, high-dose, (completed) 08-10-2020 - [facility] quadrivalent vaccine quadrivalent vaccine 08-10-2020 ([id number]) (FLUZONE HIGH DOSE (FLUZONE HIGH DOSE QUADRIVALENT) QUADRIVALENT) Pneumococcal-13 Vac pneumococcal conjugate (completed) 03-01-2018 - [facility] Conjugate vaccine, 13 valent 03-01-2018 (59409) Pneumovax pneumococcal (completed) 10-16-2005 - [facility] polysaccharide vaccine, 10-16-2005 (441 95) 23 valent Payers Payer Name Policy Number Location MEDICARE [id number] [facility] ([id number] 195) [facility] [id number] [facility] (44 195) The following information is from the original human readable contentNo Payer Records Found Social History Type Social History Date Location Description Tobacco smoking status Never smoker 04-16-2020 - [facility] NHIS 08-10-2020 ([id number]) Tobacco use and Never used 04-16-2020 [facility] exposure 08-10-2020 ([id number]) Alcohol intake Current non-drinker of 04-16-2020 [facility] alcohol (finding) 08-10-2020 (67530) Sex Assigned At Not on file [facility] ([id number]) Exposure to SARS-CoV-2 Not sure [facility] (event) ([id number]) The following information is from the original human readable contentNo Social History Records Found History of Past Illness Problem Noted Date Resolved Date Acute deep vein thrombosis (DVT) of axillary vein of left 06/04/2018 upper extremity Chronic anticoagulation 05/21/2017 07/11/2017 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 12/01/20162016 Incisional hernia without mention of obstruction or gangrene 06/08/2009 02/12/2015 BOWEL OBSTRUCTION ADHESIONS 02/14/2007 02/12/2015 PAIN ABDOMEN GENERALIZED(Mesh recall) 04/09/2006 Problem Noted Date Resolved Date Acute deep vein thrombosis (DVT) of axillary vein of left 06/04/2018 upper extremity Chronic anticoagulation 05/21/2017 07/11/2017 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 12/01/20162016 Incisional hernia without mention of obstruction or gangrene 06/08/2009 02/12/2015 BOWEL OBSTRUCTION ADHESIONS 02/14/2007 02/12/2015 PAIN ABDOMEN GENERALIZED(Mesh recall) 04/09/2006 Problem Noted Date Resolved Date Acute deep vein thrombosis (DVT) of axillary vein of left 06/04/2018 upper extremity Chronic anticoagulation 05/21/2017 07/11/2017 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 12/01/20162016 Incisional hernia without mention of obstruction or gangrene 06/08/2009 02/12/2015 BOWEL OBSTRUCTION ADHESIONS 02/14/2007 02/12/2015 PAIN ABDOMEN GENERALIZED(Mesh recall) 04/09/2006 Advance Directives No Advanced Directives Records Found Documents on File Type Date Recorded Patient Glass Blower Explanati on Advance Directive(s) 01/04/2007 12:00 AM Advance Directive(s) 12/20/2011 12:00 AM Advance Directive(s) 01/11/2017 1:39 PM Advance Directive(s) 02/09/2017 11:03 AM History of Present Illness Tr Mills - 08/10/2020 11:44 AM EDT [id number] ATTENDING PHYSICIAN: Tr Mills MD. DATE OF SERVICE: 08/10/2020. ?? DIAGNOSIS: Stage IV marginal zone lymphoma ? ?? HPI: 85-year-old elderly gentleman with history of hypertension and cardiomyopathy who presented with increasing chest discomfort and fatigue for the last year. His chest discomfort improved with aspirin and nitroglycerin. He was seen by cardiology, and Dr. Tsai noted a macrocytic anemia with thrombo cytopenia. Workup for the megaloblastic anemia was negative. ?? He had a stress test and echocardiogram which showed left ventricular hypertrophy, but no evidence of ischemia. Patient has been feeling tired for the last year. Denies any weight loss or early satiety. Patient has no fever or chills or night sweats. He has no abdominal pain or jaundice. Patient has no cough or shortness of breath. Despite thrombocytopenia he has no increased bleeding or bruising. Hedenied rectal bleeding or melena. His stool was heme negative. Patient had no previous blood transfusion or history of hepatitis. Patient has no headaches, increased lethargy, or neuropathy. He denies a history of alcohol or tobacco use. ?? Current treatment: Rituxan and cyclophosphamide/prednisone x 4 cycles ( 03/05/17-05/29/2017 ) >?Rituximab every 21 days x 2 additional cycles ?? Interim history: Mr. Wilkerson??has?no?new complaints. ?Patient has no?chest discomfort, dizziness or palpitation.??He denies?fatigue, cough, or?shortness of breath. He denies fever, chills or night sweats.?no swelling glands, adenopathy or early satiety or weight loss. He has no clinical bleeding or bruising. ?? All medications & allergies updated and reviewed by me. ?? REVIEW OF SYSTEMS: ?? CONSTITUTIONAL: No fevers, chills, nightsweats, unintended weight loss or fatigue HEENT: Denies frequent or severe heaches, nasal congestion/sinus symptoms, problematic allergy problems.?Mild erythema and swelling in the maxillary region of his face. EYES: No diplopia or blurry vision. CARDIOVASCULAR: No chest pain, dyspnea, palpitations, orthopnea, PND, ankle edema. PULM: No dyspnea, unexplained cough. GI: No dysphagia/odynophagia, problematic reflux, constipation, diarrhea, changes in stool habits, hematochezia, melena. : No new urinary complaints, including dysuria, gross hematuria or pyuria. NEURO: No new balance problems, peripheral weakness/paresthesias or numbness of concern. MUSC-SKEL: No new joint pain, swelling, or erythema. PSY: No concerns regarding depression, anxiety or panic. INTEGUMENTARY: No new skin changes (rash, new or changing mole, new growth) no increased bleeding orbruising. ?? PHYSICAL EXAMINATION: 85-year-old gentleman in no acute distress Performance status: 90% BP 132/84 Pulse 54 Temp (Src) 97.2 (Temporal) Wt 155 lb 8 oz (70.5kg) HEENT: Head is normocephalic, atraumatic. Sclerae white, complexion pale PEERL. EOMs are intact. Oropharynx is benign. Several raised edges/borders skin lesions?on face. LYMPHATICS: There is no palpable adenopathy in the neck, supraclavicular region, axillae, or groin. LUNGS: Lungs diminished breath sounds on bases. No wheezes or rhonchi. HEART: Heart is irregular regular rhythm,PMI is nondisplaced. There is a scratchy apical systolic ejection murmur. No click is heard. Carotids are brisk without bruits. -JVD ABDOMEN: Soft and nontender, no ascites. no hepatosplenomegaly. EXTREMITIES: Are without edema. No petechiae or ecchymosis. NEUROLOGIC: Exam is physiologic ?? LABORATORY DATA:? Component Latest Ref Rng & Units 08/10/2020 WBC 3.70 - 11.00 k/uL 5.78 RBC 4.20 - 6.00 m/uL 4.70 Hemoglobin 13.0 - 17.0 g/dL 15.0 Hematocrit 39.0 - 51.0 % 45.8 MCV 80.0 - 100.0 fL 97.4 MCH 26.0 - 34.0 pG 31.9 MCHC 30.5 - 36.0 g/dL 32.8 RDW-CV 11.5 - 15.0 % 13.2 Platelet Count 150 - 400 k/uL 209 MPV 9.0 - 12.7 fL 10.1 Neut% % 68.9 Abs Neut (ANC) 1.45 - 7.50 k/uL 3.97 Lymph% % 16.8 Abs Lymph 1.00 - 4.00 k/uL 0.97 (L) [place]% % 10.6 Abs [place] <0.87 k/uL 0.61 Eosin% % 2.8 Abs Eosin <0.46 k/uL 0.16 Baso% % 0.9 Abs Baso <0.11 k/uL 0.05 Nucleated Reds 0 /100 WBC 0.0 Absolute nRBC <0.01 k/uL <0.01 Diff Type Auto Diff Component Latest Ref Rng & Units 08/10/2020 Protein, Total 6.3 - 8.0 g/dL 6.5 Albumin 3.9 - 4.9 g/dL 4.4 Calcium 8.5 - 10.2 mg/dL 9.5 Bilirubin, Total 0.2 - 1.3 mg/dL 0.5 Alkaline Phosphatase 38 - 113 U/L 82 AST 14 - 40 U/L 23 Glucose 74 - 99 mg/dL 90 BUN 9 - 24 mg/dL 23 Creatinine 0.73 - 1.22 mg/dL 1.00 Sodium 136 - 144 mmol/L 141 Potassium 3.7 - 5.1 mmol/L 5.5 (H) Chloride 97 - 105 mmol/L 105 CO2 22 - 30 mmol/L 27 Anion Gap 9 - 18 mmol/L 9 ALT 10 - 54 U/L 16 eGFR- >60 eGFR-All Other Races . 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 ?? Patient is doing well.??His complete blood count his normal, and he is asymptomatic ?? PLAN:? - Continue observation follow-up in?1 year. - Repeat CBC, CMP, LDH in?1 year - Flu shot today ? 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, unspecified site, extranodal and solid organ sites Diagnosis Acute pain of right knee Medications Administered Section Inactive Administered Medications - up to 3 most recent administrations Medication Order MAR Action Action Date Dose Rate Site influenza vaccine qs 240 Given 08/10/2020 12:01 PM 0.7 mL Deltoid, Left mcg (Patients 65 years and EDT older) (PF) 0.7 mL injection (FLUZONE HIGH DOSE ) 0.7 mL (set by rule on 08/10/2020 11:48 AM), INTRAMUSCULAR, ONCE (IMMUNIZATION), 1 dose, Tu08/10/20 at 1200, Refrigerate - Shake Well, Summary Purpose Family History No Family History Records Found Additional Source Comments FOR RECORDS PERTAINING TO PATIENTS WHO ARE OR HAVE BEEN ENROLLED IN A CHEMICAL DEPENDENCY/SUBSTANCE ABUSE PROGRAM, SOME INFORMATION MAY BE OMITTED. This clinical summary was aggregated from multiple sources. Caution should be exercised in using it in the provision of clinical care. This summary normalizes information from multiple sources, and as a consequence, information in this document may materially changethe coding, format and clinical context of patient data. In addition, data may be omittedin some cases. CLINICAL DECISIONS SHOULD BE BASED ON THE PRIMARY CLINICAL RECORDS. [facility] provides no warranty or guarantee of the accuracy or completeness of information in this document. UNRECOGNIZED CONTENT PROVIDED BELOW FOR UNRECOGNIZED SECTION Source Comments In the event this information is protected by the Federal Confidentiality of Alcohol and Drug Abuse Patient Records regulations: The Federal rules restrict any use of the information to criminally investigate or prosecute any alcohol or drug abuse patient.[facility] the event this information is protected by the Federal Confidentiality of Alcohol and Drug Abuse Patient Records regulations: The Federal rules restrict any use of the information to criminally investigate or prosecute any alcohol or drug abuse patient.[facility] the event this information is protected by the Federal Confidentiality of Alcohol and Drug Abuse Patient Records regulations: The Federal rules restrict any use of the information to criminally investigate or prosecute any alcohol or drug abuse patient.[facility] the event this information is protected by the Federal Confidentiality of Alcohol and Drug Abuse Patient Records regulations: The Federal rules restrict any use of the information to criminally investigate or prosecute any alcohol or drug abuse patient.[facility] UNRECOGNIZED CONTENT PROVIDED BELOW FOR UNRECOGNIZED SECTION Reason for Visit Reason Onset Date Comments Appointment 08/04/2020 Reason Onset Date Comments Rx Refills 08/03/2020 Reason Comments Established Patient Reason Onset Date Comments Refill Request 08/16/2020 UNRECOGNIZED CONTENT PROVIDED BELOW FOR UNRECOGNIZED SECTION Miscellaneous Notes Telephone Encounter - Starla Horvath - 08/04/2020 10:33 AM EDTPatient scheduled for yearly labs/OV for 08/[address] Mills. documented in this encounter Telephone Encounter - Balbina Resendiz LPN - 08/03/2020 11:17 AM EDT Patient has been identified by name and date of : Yes Pending Prescriptions Disp Refills FINASTERIDE 5 MG TABLET 90 tablet 3 Sig: Take 1 tablet by mouth once daily. CHAU: No RX INSTRUCTIONS: Patient aware RX will be sent to pharmacy. No need to notify patient. Balbina Resendiz LPN documented in this encounterTelephone Encounter - Kristina Coates Ma - 08/16/2020 1:28 PM EDT Patient has been identified by name and date of : Yes Pending Prescriptions Disp Refills MELOXICAM 15 MG TABLET 30 tablet 5 Sig: Take 1 tablet by mouth once daily. Take with food. CHAU: No RX INSTRUCTIONS: Patient aware RX will be sent to pharmacy. No need to notify patient. Kristina Coates Ma Last ov: 09/2019 Last refill; 10/2019 No appointment scheduled documented in this encounter UNRECOGNIZED CONTENT PROVIDED BELOW FOR UNRECOGNIZED SECTION No Status Records Found UNRECOGNIZED CONTENT PROVIDED BELOW FOR UNRECOGNIZED SECTION INFORMATION SOURCE DATE CREATED AUTHOR AUTHOR'S ORGANIZATIO N 08/17/2020 [facility] Dada merritt
--- OUTSIDE RECORDS SUMMARY | 2020-08-31 19:36 | XMS RPT_ITS | CCD ---
:1935 External Reference #:[id number] Author Organization [facility] Care Team Providers Name Role Phone Damon Guo Primary Care Provider Allergies Reported Allergen Reaction(s) Severity Date of Onset Location Amoxicillin / Rash 12-26-2005 - [place] [facility] Clavulanate (22010) Atenolol Other: See Comments 12-26-2005 - [place] [facility] (21897) Clindamycin Swelling 07-10-2017 - [place] [facility] (56635) Medications Medication Name Sig Date Prescriber Location Aspirin aspirin, enteric coated [facility] (74285) (ASPIRIN, ENTERIC COATED) 81 mg EC tablet Indications: B-cell lymphoma of extranodal site (HCC) , Bladder neck obstruction , Benign prostatic hyperplasia, unspecified whether lower urinary tract symptoms present Take 81 mg by mouth every other day. 0 Active aspirin, enteric coated (ASPIRIN, ENTERIC Ccf Pr ovider [facility] (09541) COATED) 81 mg EC tablet Indications: B-cell lymphoma of extranodal site (HCC) , Bladder neck obstruction , Benign prostatic hyperplasia, unspecified whether lower urinary tract symptoms present Take 81 mg by mouth once daily. 0 Active Comment: Take 81 mg by mouth once huber ly. Take 81 mg by mouth every ot her day. Cholecalciferol Cholecalciferol, Vitamin 05-03-2017 Lashawn Jose [facility] D3, 2,000 unit cap Take 1 (4 6313) tablet by mouth once daily. 30 capsule 12 05/03/2017 Active Comment: Take 1 tablet by mouth once daily. Finasteride finasteride 06-19-2019 - Carol Seth) [facility] (PROSCAR) 5 mg 08-03-2020 [place] (84838) tablet Take 1 tablet by mouth once daily. 90 tablet 3 08/03/2020 Active Comment: Take 1 tablet by mouth once daily. TAKE 1 TABLET BY MOUTH EVERY DAY Isosorbide isosorbide mononitrate ER 06-06-2019 Lashawn Ashby [facility] (IMDUR) 30 mg 24 hr tablet ( 96713) Indications: Angina of effort (HCC) Take 1 tablet by mouth once daily. 90 tablet 3 06/06/2019 Active Comment: Take 1 tablet by mouth once daily. magnesium citrate magnesium citrate 04-16-2020 Destiny ([facility]) [facility] solution Drink 1/3 of Guardado (64710 ) bottle, wait 4hrs for results. If [...] METOPROLOL TARTRATE ORAL Take 1 Ccf Provi [facility] (37262) tablet by mouth twice daily. 0 Active METOPROLOL TARTRATE ORAL Take 1 tablet by Ccf Pr [facility] (17494) mouth twice daily. 0 Active METOPROLOL TARTRATE ORAL Take by mouth. 0 C[facility] Pr [facility] (78703) Active METOPROLOL TARTRATE ORAL Take by mouth. 0 Ccf Pr [facility] (32578) Active Comment: Take by mouth. Take 1 tablet by mouth twice daily. POLYETHYLENE GLYCOL polyethylene glycol 04-16-2020 Destiny ([facility]) [facility] 3350 3350 (MIRALAX) 17 Guardado (88227) gram packet Take 1 Packet by mouth once daily. 14 Packet 0 04/16/2020 Active Comment: Take 1 Packet by mouth once daily. PSYLLIUM HUSK (METAMUCIL PSYLLIUM HUSK (METAMUCIL Ccf Provider [facility] ORAL) ORAL) Take 1 teaspoonful (44 195) by mouth once daily. 0 Active PSYLLIUM HUSK (METAMUCIL ORAL) Take 1 [facility] (13959) teaspoonful by mouth once daily. 0 Active PSYLLIUM HUSK (METAMUCIL ORAL) Take 1 [facility] (45439) teaspoonful by mouth once daily. 0 Active PSYLLIUM HUSK (METAMUCIL ORAL) Take 1 [facility] (24714) teaspoonful by mouth once daily. 0 Active Comment: Take 1 teaspoonful by mouth once daily. 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-2016 - [facility] inic hemorrhagic disorders thrombocytopenia (4 4195) 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 - [facility] anemia disease (50896) 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-2016 - [facility] blood cells (60860) Disorders of lipid Hyperlipidemia Active 08-14-2018 - [facility] metabolism (36779) Hyperplasia of Benign prostatic Active 12-02-2007 - [facility] prostate hypertrophy with outflow (44 195) obstruction Non-Hodgkin`s lymphoma B-cell lymphoma Active 02-22-2017 - [facility] (clinical) (16443) Other diseases of 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 Time Provider Department (08402) 08/16/20 LASHAWN GUO III During your visit [...] with food. Encounter Status:Closed by SATYA THRASHER CAPACITY MANAGER on 08/16/20 progress on 2020-07 PROGRESS HNO ID: [id number] Normal 08-10-2020 [facility] Author: Tr rodriguez ([id number]) Service: ? Author Type: Physician Type: Progress Notes Filed: 08/11/2020 8:47 AM Note Text: PATIENT NAME: Josue Wilkerson Jr. CLINIC NO: [id number]. ATTENDING PHYSICIAN: Tr Mills MD. DATE OF [...] macrocytic anemia with thrombocytopenia. Workup for the nadres loblastic anemia was negative. ?? He had [...] Lymph 1.00 - 4.00 k/uL 0.97 (L) Pocahontas% % 10.6 Abs Pocahontas <0.87 k/uL 0.61 Eosin% % 2.8 Abs [...] 2020-08-10 LD 215 135-225 U/L Normal 08-10-2019 [facility] (18857) comp metabolic panel on 2020-08-10 Albumin [Mass/Vol] 4.4 3.9-4.9 g/dL Normal 08-10-2020 [facility] (35478) ALP [Catalytic 82 38-113 U/L Normal 08-10-2020 [facility] activity/Vol] [facility] and (26419) ALT [Catalytic 16 10-54 U/L Normal 08-10-2020 [facility] activity/Vol] [facility] and (51549) Anion gap 9 9-18 mmol/L Normal 08-10-2020 [facility] [Moles/Vol] [facility] (39095) AST [Catalytic 23 14-40 U/L Normal 08-10-2020 [facility] activity/Vol] [facility] and (04328) Bilirubin [Mass/Vol] 0.5 0.2-1.3 mg/dL Normal 0 [facility] (38666) Calcium [Mass/Vol] 9.5 8.5-10.2 mg/dL Normal 08-10-2020 [facility] (67015) Chloride [Moles/Vol] 105 97-105 mmol/L Normal 0 [facility] (07208) CO2 [Moles/Vol] 27 22-30 mmol/L Normal 08-10-2020 [facility] (52805) Creatinine 1.00 0.73-1.22 mg/dL Normal 08-10-2020 [facility] [Mass/Vol] [place] (04562) eGFR- Amer. >60 Normal 08-10-2020 [facility] (16643) GFR/1.73 sq M >60 mL/min/{1.73_m Normal 08-10-2020 [facility] predicted among 2} [facility] (20235) non-blacks MDRD (S/P/Bld) [Vol rate/Area] Comment: Result Comment: eGFR (Estima kiana GFR) Units of measure: mL/min/1.73 meters squared eGFR is derived from the ree xpressed MDRD Study equation using the following parameters: serum creatinine, age, gender and race. The creatinine assay has been calibrated to be traceable to [employer]. An eGFR <60 mL/min/1.73m2 fo r >3 months is consistent with chronic kidney disease. Refer to KDOQI guidelines for clinical interpretation. In patients with unstable re nal function, e.g. those with acute kidney injury, the eGFR may not accurately reflect actual GFR. Glucose [Mass/Vol] 90 74-99 mg/dL Normal 08-10-2020 [facility] (58593) Comment: Result Comment: The [place] Diabetes Association (ADA) provides guidance for cutoff [...] for diagnosis of diabetes. Reference: Standards of [facility] Care in Diabetes 2016, [place] [employer] Association. Diabetes Care. 2016.39(Suppl 1). Potassium [Moles/Vol] 5.5 3.7-5.1 mmol/L High 08-10-20 [facility] (73424) Protein [Mass/Vol] 6.5 6.3-8.0 g/dL Normal 08-10-2020 [facility] (26776) Sodium [Moles/Vol] 141 136-144 mmol/L Normal 08-10-2020 [facility] (50868) Urea nitrogen [Mass/Vol] 23 9-24 mg/dL Normal 08-10 [facility] (05163) cnovsp on 2020-07-21 2 CNOVSP Visit (SP) Office (CHRISTY) Normal [facility] JOSUE WILKERSON JR ([id number]) 1935 M [place] Date Time Provider Department (21568) 08/10/20 11:30 AM TR MILLS During your visit today, we recorded the following informati on about you: Temperature Pulse Blood pressure Weight 97.2 degrees 54/minute 132/84 70.5 kg Tr Mills MD 08/11/2020 8:47 AM Signed PATIENT NAME: Josue Wilkerson Jr. CLINIC NO: [id number]. ATTENDING PHYSICIAN: Tr Mills MD. DATE OF [...] Lymph 1.00 - 4.00 k/uL 0.97 (L) Pocahontas% % 10.6 Abs Pocahontas <0.87 k/uL 0.61 Eosin% % 2.8 Abs [...] Tr Mills MD Referring Provider: TR MILLS [[id number]] Allergies As of Date: 08/10/2020 Noted Allergy Reaction ATENOLOL 12/26/2005 14 - Other: See Comments Comments: dizzy AUGMENTIN (AMOXICILLIN-POT CLAVUL*12/26/2005 2 - Rash CLINDAMYCIN 07/10/2017 7 - Swelling Date Reviewed: 08/10/2020 Reviewed by: Diana Nayolr - Fully Assessed Reason for Visit: Established [...] longer taking. MAGNESIUM CITRATE ORAL SOLUTION >> Dinaa Naylor MA 08/10/2020 11:36 AM >> DIANA [...] Abs Baso 0.05 <0.11 k/uL Normal 08-10-2020 [facility] (04441) Abs Pocahontas 0.61 <0.87 k/uL Normal 08-10-2020 [facility] (11376) Abs Neut 3.97 1.45-7.50 k/uL Normal 08-10-2020 [facility] (55262) Absolute nRBC <0.01 <0.01 Normal 08-10-2020 [facility] (96568) Basophils/100 WBC 0.9 % Normal 08-10-2020 C [facility] (Bld) [place] (01774) DTYPE Auto Diff Normal 08-10-2020 [facility] (39765) Eosinophils (d) 0.16 <0.46 k/uL Normal 08-10-2020 [facility] [#/Vol] [place] (40617) Eosinophils/100 WBC 2.8 % Normal 08-10-2020 [facility] (Bld) [place] (42289) Erythrocyte 13.2 11.5-15.0 % Normal 08-10-2020 [facility] distribution width [facility] (71400) (RBC) [Ratio] Hematocrit (Bld) 45.8 39.0-51.0 % Normal 08-10-2020 [facility] [Volume fraction] [facility] (99493) Hemoglobin (Bld) 15.0 13.0-17.0 g/dL Normal 08-10-2020 [facility] [Mass/Vol] Do (66769) Lymphocytes (Bld) 0.97 1.00-4.00 k/uL Low 08-10-2020 [facility] [#/Vol] [place] (29259) Lymphocytes/100 WBC 16.8 % Normal 08-10-2020 [facility] (Bld) [place] (44763) MCH (RBC) [Entitic 31.9 26.0-34.0 pG Normal 08-10-2020 [facility] mass] [place] (47872) MCHC (RBC) 32.8 30.5-36.0 g/dL Normal 08-10-2020 [facility] [Mass/Vol] [place] (92265) MCV (RBC) [Entitic 97.4 80.0-100.0 fL Normal 08-10-2020 [facility] vol] [place] (35162) Monocytes/100 WBC 10.6 % Normal 08-10-2020 [facility] (Bld) [place] (47835) Neutrophils/100 WBC 68.9 % Normal 08-10-2020 [facility] (Bld) [place] (14122) NRBCs 0.0 0 /100 WBC Normal 08-10-2020 [facility] (21980) Platelet mean volume 10.1 9.0-12.7 fL Normal 0 [facility] (Bld) [Entitic vol] [place] (75193) Platelets (Bld) 209 150-400 k/uL Normal 08-10-2020 [facility] [#/Vol] [place] (73060) RBC (Bld) [#/Vol] 4.70 4.20-6.00 m/uL Normal 08-10-2020 C [facility] (00816) WBC (Bld) [#/Vol] 5.78 3.70-11.00 k/uL Normal 08-10-2020 [facility] (55448) cnpn on 2020-08-04 CNPN Telephone (CHRISTY) Normal 08-04-2020 [place] [facility] [place] JOSUE ([id number]) 1935 M [place] Date Time Provider Department (36360) 08/04/20 TR MILLS During your visit today, [...] OBSOLETE Refill (UROLWS) Normal 08-03-2020 Dada merritt [facility] JOSUE GEORGES ([id number]) 1935 M [place] Date Time Provider Department (95020) 08/03/20 CAROL ESTRELLA) UROLWS During your visit [...] * * *Final Report* * * Normal [facility] SUPINE DATE OF EXAM: Apr 16 2020 10:18AM [place] (21917) WOX 5289 - XR ABDOMEN 1V SUPINE [...] of stool in the ri ght colon. [employer] Section[employer] Center Manager: PSCB Transcribe Date/Time: Apr 16 2020 10:22A Dictated by : Rey NATH MD This examination was interpreted and the report reviewed and electronically signed by: Rey NATH MD on Apr 16 2020 10:26AM EST [id number] progress on 2020-03 PROGRESS HNO ID: [id number] Normal 04-16-2020 [facility] Author: Kiana Goodman (Rt) Cleve Elliott [place] (84869) Service: ? Author Type: Electric Organ Checker Type: Progress Notes Filed: 04/16/2020 10:18 AM [...] 16, 2020 10:18 AM PROGRESS HNO ID: [id number] Normal 04-16-2020 [facility] Author: Destiny Martinez) Geo [place] (25895) Service: ? Author Type: Nurse Practitioner Type: [...] 2020-04-16 CNOV Office Visit (UCWSTR) Normal 04-16-20 [place] [facility] JOSUE WILKERSON JR ([id number]) 1935 M [place] Date Time Provider Department (63100) 04/16/20 9:45 AM DESTINY GUARDADO ([facility]) UCWSTR During your visit today, we recorded the following informati on about you: Temperature Pulse Respiration Blood pressure 96.7 degrees 48/minute 16/minute 118/62 Weight 68 kg Destiny Guardado, BATTERY STARTER.CAPACITY MANAGER 04/16/2020 10:57 AM Signed Subjective 85 year [...] Laterality Date - COLONOSCOP W/ OR W/O [facility] SPEC 02/09/2017 repeat 10 yrs - COLONOSCOPY [...] Diseases Information Clearinghouse2 Infor natanaelmary lou [place]leg[place], [place] [address] www.digestive.niddk.nih.gov email: References: National Digestive Diseases Information Clearinghouse. Const ipation. digestive.niddk.nih.gov Accessed August 23, 2012. [place] [employer]. Understanding Cons tipation. www.gastro.org. Accessed August 23, 2012. ?Copyright 5294-0752 [facility]. All ri ghts reserved This information is provided by the [facility] and i s not intended to replace the medical advice of your doctor or health care pro vider. Please consult your health care provider for advice about a specifi c medical condition. For additional health information, please conta ct the Center for Consumer Health Information at the [facility] or toll-free extension [phone]. If you prefer, you may visit [email or web address]/ or [email or web address]. This document was last reviewed on: 2012 index #4852 Referring Provider: SELF [200] Allergies As of Date: 04/16/2020 Noted Allergy Reaction ATENOLOL 12/26/2005 14 - Other: See Comments Comments: dizzy AUGMENTIN (AMOXICILLIN-POT CLAVUL*12/26/2005 2 - Rash CLINDAMYCIN 07/10/2017 7 - Swelling Date Reviewed: 04/16/2020 Reviewed by: Katie Crissotomo Ma - Fully Assessed Reason for Visit: Pelvic Pain [282] Cmt: bilateral pelvic pressure and const ipation x 1 month Primary Visit Diagnosis:Abdo sagar discomfort, bilateral lower quadrant [R10.31, R10.32] Other Visit Diagnosis:Acute constipation [K59.00] Order(s):UA DIP, URINE (POC) [3254825] Order #: [id number] XR ABDOMEN 1V SUPINE [8136093] Order #: [id number] FUTURE UA DIP, URINE (POC) [6586345] Order #: [id number]. #:[id number] polyethylene glycol 3350 (MIRALAX) 17 gram packetTake 1 Pack et by mouth once daily.Disp: 14 PacketRfl: 0 magnesium citrate solutionDrink 1/3 of bottle, wait 4hrs for results. If no stool, drink next 1/3 bottle. Wait 4hrs. No results, t hen drink last 1/3 of bottle. For severe constipation.Disp: 295 mLRfl: 0 CONSULT TO GASTROENTEROLOGY [9010] Order #: [id number]: 1 FUTURE Prescriptions as of 04/16/2020 Sig: [...] Digestive Diseases Information Clearinghouse2 Kinr parveen [place]leg[place], [place] [address] www.digestive.niddk.nih.gov email: References: National Digestive Diseases Information Clearinghouse. Const ipation. digestive.niddk.nih.gov Accessed August 23, 2012. [place] [employer]. Understanding Cons tipation. www.gastro.org. Accessed August 23, 2012. ?Copyright 4170-6345 [facility]. All ri ghts reserved This information is provided by the [facility] and is not intended to replace the medical advice of your doctor or health care provider. Please consult your health care provider for advice about a specific medical condition. For additional health information, please contact the Center for Consumer Health Information at the [facility] or toll-free extension [phone]. If you prefer, you may visit [email or web address]/ or [email or web address]. This document was last revie wed on: 2012 index #6035 Prescriptions ordered this encounter Disp Refills Start [...] 04/16/20 progress on 2019-10 PROGRESS HNO ID: [id number] Normal 11-06-2019 [facility] Author: Guilherme Bean [place] ([id number]) Service: ? Author Type: Physician Type: Progress Notes Filed: 11/06/2019 11:05 AM Note Text: High pressure low flow consistent with obstruction. No OAB. Cysto to follow Guilherme Bean MD PROGRESS HNO ID: [id number] Normal 11-06-2019 [facility] Author: Guilherme Do ([id number]) Service: ? Author Type: Physician Type: Progress [...] 2019-11-06 CNOV Office Visit (UROSMN) Normal 11-06-20 [place] [facility] JOSUE WILKERSON JR ([id number]) 1935 M [place] Date Time Provider Department (25956) 11/06/19 11:00 AM GUILHERME BEAN UROSMKenyetta During [...] Education Session: None Instruction Provided To: Patient Pattern Hanger Present: not applicable Discipline: Nursing Learning Topic: SURVIVAL SKILLS: Complication Prevention Patient Evaluation: Verbalizes understanding: Yes Supplemental Material Given: Written Material Instructed By Flor Murphy LPN In Department Urology . Referring Provider: GUILHERME BEAN [[id number]] Allergies As of Date: 11/06/2019 Noted Allergy [...] TRANSRECTAL PROSTATE (TRUS) (POC) GUKI USE ONLY [9141483] Order #: [id number]: 1 ciprofloxacin HCl 500 mg tab(s) (CIPRO)Disp: [...] cation Session: None Instruction Provided To: Patient Pattern Hanger Present: not applicable Discipline: Nursing Learning Topic: [...] on CNNURSE Nurse Visit (UROSMN) Normal 9 [facility] JOSUE GEORGES ([id number]) 1935 [facility] Date Time Provider Department (97623) 11/06/19 10:00 AM URODYNAMICS UROSMN During your visit today, we recorded the following informati on about you: Gia Niño RN 11/06/2019 10:56 AM Signed [facility] URODYNAMICS [...] an unders tanding of instructions given. Gia Bean MD 11/06/2019 11:05 AM Signed High pressure low flow consistent with obstruction. No OAB . Cysto to follow Guilherme Bean MD Referring Provider: CAROL ESTRELLA) [[id number]] Allergies As of Date: 11/06/2019 Noted Allergy [...] Nov 06, 2019 10:20 AM Status: Signed [facility] URODYNAMICS [...] Refill (FAMPWS) Normal 10-22-2019 [facility] JOSUE GEORGES ([id number]) 1935 M [place] Date Time Provider Department (75155) 10/22/19 LASHAWN GUO III During your visit today, we recorded the following informati on about you: Dedra Wild CMA, ID 10/22/2019 12:38 PM Signed MONICA: 10/07/2019 NOV: [...] 10/23/19 progress on 2019-09 PROGRESS HNO ID: [id number] Normal 10-10-2019 [facility] Author: Lashawn Guo III [place] ([id number]) Service: ? Author Type: Physician Type: Progress [...] FAAFP progress on 2019-09 PROGRESS HNO ID: [id number] Normal 10-07-2019 [facility] Author: Lashawn Guo III [place] ([id number]) Service: ? Author Type: Physician Type: Progress Notes Filed: 10/07/2019 12:54 PM Note Text: Visit for Transitional Care Management CC: Josue is a 84 year old male following 8, days after the Ho spital/Custodial Discharge. Records reviewed. HPI: Pt had near [...] 2019-10-07 CNOV Office Visit (FAMPWS) Normal 10-07-20 [place] [facility] JOSUE WILKERSON JR ([id number]) 1935 [facility] Date Time Provider Department (13565) 10/07/19 9:40 AM LASHAWN GUO III During your visit today, we recorded the following informati on about you: Temperature Pulse Respiration Blood pressure 96.3 degrees 58/minute 18/minute 108/62 Weight 67.6 kg Lashawn Guo III MD 10/07/2019 12:54 PM Signed Visit for Transitional Care Management CC: Josue is a 84 year old mal e following 8, days after the Hospital/Custodial Discharge. Records reviewed. HPI: Pt had near [...] III MD Referring Provider: LASHAWN GUO III [[id number]] Allergies As of Date: 10/07/2019 Noted Allergy Reaction ATENOLOL 12/26/2005 14 - Other: See Comments Comments: dizzy AUGMENTIN (AMOXICILLIN-POT CLAVUL*12/26/2005 2 - Rash CLINDAMYCIN 07/10/2017 7 - Swelling Date Reviewed: 10/07/2019 Reviewed by: Jenna E Celi SALES ENABLEMENT SPECIALIST - Fully Assessed Reason for Visit: Hospital Follow Up [177] Cmt: [facility] discharge 09/30/19 for jossy lobato Primary Visit [...] on 2019-10-06 CNPN Telephone (UROLWS) Normal 10-06-2019 [place] [facility] JOSUE GEORGES ([id number]) 1935 M [place] Date Time Provider Department (86837) 10/06/19 CAROL ESTRELLA (JEANNETTE) UROLWS During your visit today, we recorded the following informati on about you: Mirian Lees Ma 10/06/2019 2:21 PM Signed Pt needs to be scheduled for CYSTO/TRUS and UDYN. Dr. Bean. Orders in [employer]. Pt wants to be evaluated for Rezum [...] 10/07/19 progress on 2019-09 PROGRESS HNO ID: [id number] Normal 10-02-2019 [facility] Author: Carol Seth) Starr [place] ([id number]) Service: ? Author Type: Physician Transport Corps Officer Type: Progress Notes Filed: 10/14/2019 6:07 PM Note Text: [facility] CC: Annual Prostate check HPI Earrohinit Joana [...] No masses, organomegaly CHACE: 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 Bean at [facility] > consult to discuss Urolift or REZUM Carol Estrella, MPAS, MT, PA-C Electronically signed cnov on 2019-10-02 CNOV Office Visit (UROLWS) Normal 10-02-20 19 [facility] ROCK GOERGESJOSUE Bernard ([id number]) 1935 [facility] Date Time Provider Department (54938) 10/02/19 11:30 AM CAROL ESTRELLA (JEANNETTE) UROLWS During your visit today, we recorded the following informati on about you: Pulse Respiration Blood pressure Weight 72/minute 16/minute 120/68 68.5 kg JEANNETTE Carter 10/14/2019 6:07 PM Signed [facility] CC: Annual Prostate check HPI Josue Bernard [...] No masses, organomegaly CHACE: 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 Bean at [facility] > consult to discuss Urolift or REZUM [...] with urinary obstruction [N40.1, N13.8] Order(s):CYSTO/TRUS ONLY [[id number]] Order #: [id number] URODYNAMICS [[id number]] Order #: [id number] Prescriptions as of 10/02/2019 Sig: METOPROLOL TARTRATE [...] 9 progress on 2019-08 PROGRESS HNO ID: [id number] Normal 09-12-2019 [facility] Author: David Ladd ([id number]) Service: ? Author Type: Physician Type: Progress [...] Laterality Date - COLONOSCOP W/ OR W/O [facility] SPEC 02/09/2017 repeat 10 yrs - COLONOSCOPY [...] worsen. Miguel Mao, DO PROGRESS HNO ID: [id number] Normal 09-12-2019 [facility] Author: Yovana Garcia RN [place] ([id number]) Service: ? Author Type: ? Type: Progress [...] 2019-09-12 CNOV Office Visit (FRFHWS) Normal 09-12-20 [place] JOSUE Rojas JR ([id number]) 1935 [facility] Date Time Provider Department ([id number]) 09/12/19 1:40 PM MIGUEL MAO V FRFHWS [...] Laterality Date - COLONOSCOP W/ OR W/O [facility] SPEC 02/09/2017 repeat 10 yrs - COLONOSCOPY [...] PM Signed Thank you for choosing the [facility] for your acute care [...] physician or booking an appointment, please call [phone] or speak with any Patient Service [facility] e. Hours: Sunday through Sunday 7:30 am to 7:00 pm. Sunday and Sunday: 8:00 am to 2:30 pm. Referring Provider: SATYA THRASHER [[id number]] Allergies As of Date: 09/12/2019 Noted Allergy [...] your clinician: Thank you for choosing the [facility] for your acute [...] ольга or booking an appointment, please call [phone] or speak with any Patient Service Representativ e. Hours: Sunday through Sunday 7:30 am to 7:00 pm. Sunday and Sunday: 8:00 am to 2:30 pm. Encounter Status:Closed by MIGUEL MAO DO, V on 09/12/19 obsolete on 2019-08 OBSOLETE Refill (UROLWS) Normal 09-07-2019 Dada merritt [facility] JOSUE GEORGES ([id number]) [address] [facility] Time Provider Department ([id number]) 09/07/19 CAROL ESTRELLA) UROLWS During your visit [...] * *Final Report* * * Normal 08-19-2019 [place] BOTH+LAT/LIANE LT DATE OF EXAM: Aug 19 2019 2:54PM Clinic WOX 5202 - XR KNEE 4V AP/PA BOTH+LAT/LIANE LT / [id number] [place] PROCEDURE REASON: Left knee pain, unspecified chronicity ([id number]) * * * * Physician Interpretation * [...] - IMPRESSION: Chondrocalcinosis and early degenerative arthritis. [employer] Manager: PSCB Transcribe Date/Time: Aug 20 2019 11:58A Dictated by : JOVANI REVELES MD This examination was interpreted and the report reviewed and electronically signed by: JOVANI REVELES MD on Aug 20 2019 11:59AM EST [id number] progress on 2019-08 PROGRESS HNO ID: [id number] Normal 08-19-2019 [facility] Author: Kiana Goodman (Rt) Cleve Elliott Do ([id number]) Service: ? Author Type: Electric Organ Checker Type: Progress Notes Filed: 08/19/2019 2:54 PM [...] 19, 2019 2:33 PM PROGRESS HNO ID: [id number] Normal 08-19-2019 [facility] Author: Satya Thrasher [place] ([id number]) Service: ? Author Type: Nurse Practitioner Type: [...] Laterality Date - COLONOSCOP W/ OR W/O [facility] SPEC 02/09/2017 repeat 10 yrs - COLONOSCOPY [...] file Gets together: Not on file Attends sikh service: Not on file Active member of [...] HIGH DOSE AGE 65+ Satya Thrasher, MSN BATTERY STARTER.CAPACITY MANAGER cnov on 2019-08-19 CNOV Office Visit (FAMPWS) Normal 08-19-20 [place] [facility] JOSUE WILKERSON JR ([id number]) 1935 M [place] Date Time Provider Department ([id number]) 08/19/19 1:40 PM [facility] today, we recorded the following informati on about you: Temperature Pulse Respiration Blood pressure 97.7 degrees 68/minute 16/minute 110/66 Weight 68 kg Satya Thrasher MSN BATTERY STARTER.CAPACITY MANAGER 08/19/2019 3:07 PM Signed Chief Complaint Patient [...] file Gets together: Not on file Attends sikh service: Not on file Active member of [...] HIGH DOSE AGE 65+ Satya Thrasher, MSN BATTERY STARTER.CAPACITY MANAGER Satya Thrasher, MSN BATTERY STARTER.CAPACITY MANAGER 08/19/2019 1:55 PM Signed 1. Recommend Tylenol [...] [Z23] Order(s):INFLUENZA SEASONAL HIGH DOSE AGE 65+ [[id number]] Order #: [id number] XR KNEE GENERAL 4V AP BOTH/PA BOTH/LAT/MERC LT [[id number]] Ord er #: [id number] FUTURE CONSULT TO ORTHOPAEDICS [9075] Order #: [id number]: 1 Prescriptions as of 08/19/2019 Sig: FINASTERIDE [...] [id number] 2. 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) 08-16-2020 - 08-16-2020 Refill Knee pain Lashawn Guo [facility] [place] Comment: Refill Request 08-03-2020 - 08-03-2020 Refill Carol (Jeannette) [facility] Comment: Rx Refills 08-04-2020 - 08-04-2020 [facility] Comment: Appointment Plan of Treatment Plan Description Date Location DIABETES SCREEN DIABETES SCREEN 08-10-2023 - [facility] 08-10-2023 ([id number]) DIABETES SCREEN DIABETES SCREEN 05-26-2022 - [facility] 05-26-2022 ([id number]) INFLUENZA (#1) INFLUENZA (#1) 2020 - [facility] 07-20-2020 ([id number]) ADVANCE DIRECTIVE ADVANCE DIRECTIVE 01-04-2012 - [facility] inic DISCUSSION DISCUSSION 01-04-2012 (08800) SHINGRIX VACCINE (1 of SHINGRIX VACCINE (1 of 1987 - [facility] 2) 2) 1987 (89912) DTAP,TDAP,TD (1 - Tdap) DTAP,TDAP,TD (1 - Tdap) 02-21-1956 - [facility] 02-21-1954 (89319) no information [facility] (87381) no information [facility] (54711) Immunizations Vaccine Notes Status Date Location Influenza Vaccine, influenza virus (completed) 08-24-2012 - [facility] Split-Non Spec vaccine, unspecified 08-24-2012 (4419 5) formulation Influenza Vaccine, influenza virus (completed) 08-26-2011 - [facility] Split-Non Spec vaccine, unspecified 08-26-2011 (4419 5) formulation Influenza Seasonal - influenza, high dose (completed) 08-19-2019 - [facility] High Dose - Age 65+ seasonal, 08-19-2019 (18833) preservative-free Influenza Seasonal - influenza, high dose (completed) 07-31-2018 - [facility] High Dose - Age 65+ seasonal, 07-31-2018 (21826) preservative-free Influenza Seasonal - influenza, high dose (completed) 08-31-2017 - [facility] High Dose - Age 65+ seasonal, 08-31-2017 (54613) preservative-free influenza, high-dose, influenza, high-dose, (completed) 08-10-2020 - [facility] quadrivalent vaccine quadrivalent vaccine 08-10-2020 (21085) (FLUZONE HIGH DOSE (FLUZONE HIGH DOSE QUADRIVALENT) QUADRIVALENT) Pneumococcal-13 Vac pneumococcal conjugate (completed) 03-01-2018 - [facility] Conjugate vaccine, 13 valent 03-01-2018 (25326) Pneumovax pneumococcal (completed) 10-16-2005 - [place] [facility] polysaccharide vaccine, 10-16-2005 (441 95) 23 valent Payers Payer Name Policy Number Location MEDICARE [id number] [facility] (44 195) [facility] [id number] [facility] (44 195) The following information is from the original human readable contentNo Payer Records Found Social History Type Social History Date Location Description Tobacco smoking status Never smoker 04-16-2020 - [facility] NHIS 08-10-2020 (07206) Tobacco use and Never used 04-16-2020 [facility] exposure 08-10-2020 (52108) Alcohol intake Current non-drinker of 04-16-2020 [facility] alcohol (finding) 08-10-2020 (42954) Sex Assigned At Not on file [facility] (57873) Exposure to SARS-CoV-2 Not sure [facility] (event) (94584) The following information is from the original [...] Documents on File Type Date Recorded Patient Cut Order Hand Explanati on Advance Directive(s) 01/04/2007 12:00 AM Advance Directive(s) 12/20/2011 12:00 AM Advance Directive(s) 01/11/2017 1:39 PM Advance Directive(s) 02/09/2017 11:03 AM History of Present Illness [facility] - 08/10/2020 11:44 AM EDT [facility]: [id number] ATTENDING PHYSICIAN: Tr [facility] MD. DATE OF [...] Lymph 1.00 - 4.00 k/uL 0.97 (L) [place]% % 10.6 Abs [place] <0.87 k/uL 0.61 Eosin% % 2.8 Abs [...] BE BASED ON THE PRIMARY CLINICAL RECORDS. [facility] provides no warranty or guarantee of the accuracy or completeness of information in this document. UNRECOGNIZED CONTENT PROVIDED BELOW FOR UNRECOGNIZED SECTION Source Comments In the event this information is protected by the Federal Confidentiality of Alcohol and Drug Abuse Patient Records regulations: The Federal rules restrict any use of the information to criminally investigate or prosecute any alcohol or drug abuse patient.[facility] the event this information is protected by the Federal Confidentiality of Alcohol and Drug Abuse Patient Records regulations: The Federal rules restrict any use of the information to criminally investigate or prosecute any alcohol or drug abuse patient.[facility] the event this information is protected by the Federal Confidentiality of Alcohol and Drug Abuse Patient Records regulations: The Federal rules restrict any use of the information to criminally investigate or prosecute any alcohol or drug abuse patient.[facility] the event this information is protected by the Federal Confidentiality of Alcohol and Drug Abuse Patient Records regulations: The Federal rules restrict any use of the information to criminally investigate or prosecute any alcohol or drug abuse patient.[facility] UNRECOGNIZED CONTENT PROVIDED BELOW FOR UNRECOGNIZED SECTION [...] DATE CREATED AUTHOR AUTHOR'S ORGANIZATIO N 08/17/2020 [facility] Dada merritt
== END 2020-04-17 19:10 | disposition home or self-care (01) ==
PROVIDERS: Emergency Provider Emergency Medicine; PCP Family Medicine
DX: R10.84 Generalized abdominal pain (principal); R19.7 Diarrhea, unspecified; F55.2 Abuse of laxatives; I27.21 Secondary pulmonary arterial hypertension; E78.5 Hyperlipidemia, unspecified; Z79.82 Long term (current) use of aspirin; Z79.899 Other long term (current) drug therapy; Z88.0 Allergy status to penicillin; Z88.1 Allergy status to other antibiotic agents; Z85.72 Personal history of non-Hodgkin lymphomas; Z87.19 Personal history of other diseases of the digestive system
CPT/HCPCS: 74022; 80048; 85025; 99284; A4216

== ENCOUNTER 2020-11-21 09:00 | Emergency (ER) | payer MEDICARE, OTHER, SELFPAY ==
[2020-11-21 09:01] VITALS: BP 155/108; PULSE 96; RESP 17; TEMP 36.6; O2SAT 94; BMI 25.9
--- NOTE | 2020-11-21 09:18 | CT_ITS ---
STUDY: CT ABDOMEN AND PELVIS WITH CONTRAST REASON FOR EXAM: Male, 85 years old. DIARRHEA X 3 DAYS, GERD, HX-NHL, THROMBOCYTOPENIA, DIVERTICULITIS RADIATION DOSAGE (If Supplied By Facility): CTDIvol = ( 11.29 ) mGy, DLP = ( 571.10 ) mGycm TECHNIQUE: Transaxial images were obtained from the dome of the diaphragm to the symphysis pubis without oral contrast. Oral and amp; IV Gastrografin and amp; 100mL Isovue-370 was administered. Sagittal and coronal images were reconstructed. Individualized dose optimization techniques were used for this CT. COMPARISON: 04/23/2017 FINDINGS: Previously present pleural effusions have resolved. There are mild hypoventilatory changes at the lung bases which may be positional. The visualized portions of the heart are within normal limits. Normal liver. Normal gallbladder and extrahepatic biliary system. Normal spleen. Normal pancreas. Normal bilateral adrenal glands. Normal right kidney. Normal left kidney. Bilateral renal cysts are present, the largest cyst is seen in association with the upper lateral left kidney measuring approximately 2.6 cm. No suspicious renal masses. Parapelvic cysts are present on the left. The kidneys enhance bilaterally and symmetrically. Stomach is contracted but otherwise unremarkable. Normal small intestine. Multiple diverticula of the colon noted. There is diffuse colonic wall thickening of the colon particularly of the sigmoid colon consistent with diffuse colitis. This is new since previous. There is non-visualization of the appendix. No secondary signs of appendicitis. There is diffuse atherosclerotic calcification of the abdominal aorta, without a demonstrated aneurysm. Normal inferior vena cava. Normal retroperitoneum. The urinary bladder is partially contracted. The wall appears thickened but this may associate with bladder contraction. There is a HUTCH diverticulum on the right. It appears that there is postsurgical change associated with the inferior aspect of the urinary bladder with multiple surgical clips seen in this region new since previous exam Normal abdominal wall. There is accentuated lumbar lordosis, this was present previously. There is subtle anterior listhesis of L4 on L5 by approximately 3 mm, present previously. Diffuse degenerative endplate changes also present with multilevel marginal osteophytes vacuum disc phenomenon and levels of disc calcification. CT/Abdomen/Pelvis WITH Contrast IMPRESSION: Diffuse colitis. There is diverticulosis but no evidence of focal diverticulitis. See above for additional details. Electronically Signed: Brenda Darling MD at 11:39 EST , Service support ,
--- NOTE | 2020-11-21 09:19 | ED.VIS.GEN ---
History of Present Illness Chief Complaint: Diarrhea Informant: Patient Onset: Days - 3 days Context: Gradual Onset Current Severity: Moderate Maximum Severity: Moderate Narrative: Patient presents with 3-day history of diarrhea. He states he is going to the bathroom nearly every hour. No blood associated. He denies any significant abdominal pain, vomiting, fever, or chills. - Past Medical History (1) HLD (hyperlipidemia) Status: Chronic (2) Lymphoma Status: Chronic (3) Secondary pulmonary arterial hypertension Status: Chronic Past Medical History - Allergies and Home Meds Allergies/Adverse Reactions: Allergies amoxicillin trihydrate [From Augmentin] Allergy (Verified 11/21/20 09:01) Other syncope atenolol Allergy (Verified 11/21/20 09:01) Other clindamycin Allergy (Verified 11/21/20 09:01) Hives potassium clavulanate [From Augmentin] Allergy (Verified 11/21/20 09:01) Unknown Primary Care Physician: Lamin Guo III, MD [Primary Care Provider] - Prior records reviewed: Yes Surgical History: - - back surgery Smoking Status: Never smoker - Family History Maternal Family History: Family History (Last Reviewed 10/24/19 @ 13:[address] Edmundo Arrieta MD) Mother Heart disease Brother Cancer Family History: Reports: Heart Disease Sibling Family History: Family History (Last Reviewed 10/24/19 @ 13:[address] Edmundo Arrieta MD) Mother Heart disease Brother Cancer Family History: Reports: Cancer - prostate Review of Systems General: Denies: Chills, Fever Eyes: Denies: Visual changes - bilaterally ENT: Denies: Bilateral ear pain Cardiovascular: Denies: Chest pain Respiratory: Denies: Dyspnea, Cough Gastrointestinal: Reports: Diarrhea. Denies: Abdominal pain, Nausea, Vomiting Genitourinary: Denies: Dysuria Musculoskeletal: Denies: Extremity Pain Skin: Denies: Rash Hematologic: Denies: Easy bruising, Easy bleeding Allergy: Denies: Uticaria Physical Exam Vital Signs/Narrative: Vital Signs Temp Pulse Resp BP Pulse Ox 11/21/20 09:01 97.9 F 96 17 155/108 H 94 Inital Vital Signs reviewed: Yes General: Well nourished, Well developed Head: Normocephalic ENT: Moist mucous membranes Neck: Supple Cardiovascular: Regular rate, Regular rhythm Respiratory: No distress, CTA bilaterally Abdomen: Soft, Guarding - Voluntary guarding of the lower abdomen., Hypoactive bowel sounds Extremities: Nontender Skin: Normal color Neurological: Alert, Oriented x3 Psychological: Normal affect Diagnostic/Tx/Re-eval Impressions Abdomen/Pelvis CT 11/21/20 09:18 IMPRESSION: Diffuse colitis. There is diverticulosis but no evidence of focal diverticulitis. See above for additional details. Electronically Signed: Brenda Darling MD at 11:39 EST , Service support , 11/21/20 09:18 Abdomen/Pelvis WITH Contrast [CT] Stat Laboratory Results 11/21/20 11/21/20 11/21/20 09:35 09:35 10:40 WBC 4.1 L RBC 4.92 Hgb 15.5 Hct 47.2 MCV 95.9 H MCH 31.5 MCHC 32.8 RDW Std Deviation 45.7 H RDW Coeff of Raul 12.9 Plt Count 209 MPV 10.0 Immature Gran % (Auto) 0.200 Neut % (Auto) 58.7 Lymph % (Auto) 13.2 L [place] % (Auto) 26.2 H Eos % (Auto) 1.2 Baso % (Auto) 0.5 Absolute Neuts (auto) 2.4 Absolute Lymphs (auto) 0.54 L Nucleated RBC % 0 Differential Comment SCANNED Sodium 142 Potassium 3.9 Chloride 111 H Carbon Dioxide 23.0 Anion Gap 8 BUN 25 H Creatinine 1.33 H Estim Creat Clear Calc 35.24 Est GFR (MDRD) Af Amer 66 Est GFR (MDRD) Non-Af 55 L BUN/Creatinine Ratio 18.8 Glucose 92 Calcium 8.8 Total Bilirubin 0.60 Direct Bilirubin 0.16 AST 14 L ALT 18 Alkaline Phosphatase 75 Total Protein 7.1 Albumin 3.6 Globulin 3.5 Urine Color Yellow Urine Clarity Clear Urine pH 5.0 Ur Specific [place] 1.030 Urine Protein 15 H Urine Glucose (UA) Normal Urine Ketones 5 H Urine Occult Blood Negative Urine Nitrite Negative Urine Bilirubin Negative Urine Urobilinogen Normal Ur Leukocyte Esterase Negative Urine RBC 0 SEEN Urine WBC 0-5 SEEN Ur Squamous Epith Cells 0 SEEN Urine Bacteria 0 SEEN Urine Mucus 2+ - Medical Decision Making Patient was given IV fluids here. Lab work and CT findings are reviewed with him. He does have evidence of colitis. I did advise him that this could be secondary to bacteria or virus. We will cover him with Cipro and Flagyl as he does have an allergy to Augmentin. ED Disposition - Plan for ED Patient: Disposition: Home or Assisted Living Diagnosis: Colitis Instructions: ED Gastroenteritis, Bacterial (Adult) Prescriptions: Ciprofloxacin [Cipro] 500 mg PO BID #14 tab Transmission Status: [id number] metroNIDAZOLE [Flagyl] 500 mg PO Q6H #40 tab Transmission Status: P[id number] Referrals: Lamin Guo III, MD [Primary Care Provider] - 1 Week if not improving
[2020-11-21] MEDS: 0.9% Normal Saline 1,000 ML 150 ML IV (09:39)
[2020-11-21 09:42] LABS: Absolute Lymphocyte Count 0.54 X10^3/uL (0.83-4.51); Absolute Neutrophil Count 2.4 X10^3/uL (2.0-7.7); Basophil# 0.02 X10^3/uL; Basophil% 0.5 % (0-1); Eosinophil# 0.05 X10^3/uL; Eosinophils% 1.2 % (0-5); Hematocrit 47.2 % (40-54); Hemoglobin 15.5 g/dL (13.0-16.5); Lymphocyte # 0.54 X10^3/ul (4.0); Lymphocyte % 13.2 % (19-41); Mean Corp Hgb Conc 32.8 g/dL (32-36); Mean Corpuscular Hgb 31.5 pg (27.0-32.0); Mean Corpuscular Volume 95.9 fL (80-94); Monocyte# 1.07 X10^3/uL; Monocyte% 26.2 % (0-10); NRBC Flagged by Analyzer 0 % (0-5); Neutrophil # 2.39 X10^3/uL (2.7-7.7); Neutrophil % 58.7 % (47-70); POSITIVE DIFFERENTIAL YES; Platelet Count 209 K/mm3 (150-450); RBC Distribution Width CV 12.9 % (11.6-14.6); RBC Distribution Width SD 45.7 fl (35.1-43.9); Red Blood Count 4.92 M/mm3 (4.6-6.2); White Blood Count 4.1 K/mm3 (4.4-11.0)
[2020-11-21 09:58] LABS: AST(SGOT) 14 U/L (15-37); Alanine Aminotransfer ALT/SGPT 18 U/L (16-61); Albumin, Serum 3.6 g/dL (3.2-5.0); Alkaline Phosphatase 75 U/L (45-117); Anion Gap 8 (5-15); BUN 25 mg/dL (7-18); BUN/Creat Ratio 18.8 RATIO (10-20); Bilirubin, Direct 0.16 mg/dL (0.00-0.30); Calcium,Total 8.8 mg/dL (8.5-10.1); Chloride 111 mmol/L (98-107); Creatinine, Serum 1.33 mg/dL (0.70-1.30); EST Glomerular Filtration Rate 55 mL/min (>60); Est Glom Filt Rate - Afr Amer 66 mL/min (>60); Estimated Creatinine Clearance 35.24 ml/min; Globulin 3.5 g/dL (2.2-4.2); Glucose 92 mg/dL (74-106); Potassium 3.9 mmol/L (3.5-5.1); Protein, Total 7.1 g/dL (6.4-8.2); Sodium Level 142 mmol/L (136-145)
[2020-11-21 10:22] LABS: Differential Indicated SCAN CRITERIA MET
[2020-11-21 10:26] LABS: Differential Comment SCANNED
[2020-11-21 10:44] VITALS: BP 148/62; PULSE 58; RESP 19; TEMP 36.4; O2SAT 97
[2020-11-21 10:49] LABS: Bacteria 0 SEEN /hpf (None Seen); Red Blood Cells-Urine 0 SEEN /hpf (0-5); Squamous Epithelial Cells - UA 0 SEEN /hpf (0-5)
[2020-11-21 10:52] LABS: Color, Urine Yellow (Yellow); Glucose, Dipstick Normal (Normal); Ketone-Dipstick 5 mg/dl (Negative); Leukocyte Esterase-Dipstick Negative /ul (Negative); Nitrite-Dipstick Negative (Negative); Occult Blood-Urine Negative /ul (Negative); Protein-Dipstick 15 mg/dl (Negative); Urine Bilirubin Dipstick Negative (Negative); Urine Clarity Clear (Clear); Urine Urobilinogen Normal (Normal)
[2020-11-21 11:22] LABS: Mucous, Urine 2+ /hpf (<or=2+); White Blood Cells 0-5 SEEN /hpf (0-5)
[2020-11-21] MEDS: Ciprofloxacin 500 MG Tablet PO (12:04)
[2020-11-21] MEDS: metroNIDAZOLE 500 MG Tablet PO (12:04)
[2020-11-21 12:12] VITALS: BP 144/69; PULSE 58; RESP 16; O2SAT 96
[2020-11-22 13:33] LABS: Pathologist Review Reviewed
== END 2020-11-21 12:18 | disposition home or self-care (01) ==
PROVIDERS: Emergency Provider Emergency Medicine; PCP Family Medicine
DX: K52.9 Noninfective gastroenteritis and colitis, unspecified (principal); C85.90 Non-Hodgkin lymphoma, unspecified, unspecified site; I27.21 Secondary pulmonary arterial hypertension; E78.5 Hyperlipidemia, unspecified; Z79.82 Long term (current) use of aspirin; Z79.899 Other long term (current) drug therapy
CPT/HCPCS: 74177; 80048; 80076; 81001; 85025; 96360; 96361; 99283; J7030; Q9967

== ENCOUNTER 2023-02-10 16:07 | Observation (INO) | payer MEDICARE, SELFPAY ==
[2023-02-10] VITALS (8 sets, daily range): BP systolic 137–170; BP diastolic 79–104; PULSE 61–89; RESP 16–22; TEMP 36.2–36.6; O2SAT 94–100; BMI 27.3; BMI 26.6
--- NOTE | 2023-02-10 16:49 | EX.ED.DYSGE1 ---
HPI History of Present Illness Chief Complaint: Hypertension Narrative Narrative: 87-year-old male with vertiginous dizziness. This was acute in onset earlier today. Patient states he turned his head to the left while he was working on his computer and noted that his room was spinning. He states this happens every time he turns his head now. He states he is not nauseous. He denies chest pain or shortness of breath. He denies lightheadedness. No headache. No slurred speech. No facial droop. No mental status change. He is moving all 4 extremities without deficit. PFSH PFS Medical History BPH (benign prostatic hyperplasia) Constipation Diverticulitis Gout HLD (hyperlipidemia) Lymphoma Multiple premature ventricular complexes Near syncope Secondary pulmonary arterial hypertension Home Medications cholecalciferol (vitamin D3) 50 mcg (2,000 unit) capsule 2,000 unit PO DAILY vitamin 05/21/17 [History Last Taken 09/26/19] [facility] mg [facility] [employer] [facility] 02/24/18 [History Last Taken 09/26/19] psyllium husk 3.4 gram/5.4 gram oral powder 660 gm PO DAILY supplement 02/24/18 [History Last Taken 09/26/19] isosorbide mononitrate 30 mg tablet,extended release 24 hr 30 mg PO DAILY #30 tabs 10/28/19 [Rx Last Taken Unknown] ciprofloxacin HCl 500 mg tablet 500 mg PO BID #14 tabs 11/21/20 [Rx Last Taken Unknown] metronidazole 500 mg tablet 500 mg PO Q6H #40 tabs 11/21/20 [Rx Last Taken Unknown] metoprolol tartrate 25 mg tablet See Rx Instructions .Route .COMPLEX #180 tabs 09/19/21 [Rx Last Taken Unknown] Allergy/AdvReac Type Severity Reaction Status Date / Time amoxicillin trihydrate Allergy Other Verified 02/10/23 16:08 [From Augmentin] atenolol Allergy Other Verified 02/10/23 16:08 clindamycin Allergy Hives Verified 02/10/23 16:08 potassium clavulanate Allergy Unknown Verified 02/10/23 16:08 [From Augmentin] Family History Mother Heart disease Brother Cancer prostate Surgical History History of back surgery Social History Smoking Status: Never smoker ROS ROS ED Review of Systems ROS Unobtainable: Denies due to encephalopathy Constitutional Constitutional ED: Denies chills or fever(s) Eyes Eyes: Reports other Details: Room spinning ENT ENT ED: Denies rhinorrhea or sore throat Cardiovascular Cardiovascular: Denies chest pain or palpitations Respiratory/Chest Respiratory/Chest: Denies cough or dyspnea Gastrointestinal Gastrointestinal: Denies abdominal pain Genitourinary Genitourinary ED: Denies dysuria or hematuria Musculoskeletal Musculoskeletal: Denies arthralgias or back pain Neurologic Neurologic: Denies headache(s) EXAM Physical Exam Const Vital Signs: 02/10/23 16:09 02/10/23 16:11 02/10/23 18:07 Temperature 97.8 F Temperature Source Temporal Pulse Rate 62 89 Pulse Rate [Lying] Pulse Rate [Sitting (for 1 minute prior to obtaining)] Pulse Rate [Standing (for 1 minute prior to obtaining)] Respiratory Rate 18 16 Respiratory Pattern Normal Blood Pressure 154/101 H 170/101 H Blood Pressure [Lying] Blood Pressure [Sitting (for 1 minute prior to obtaining)] Blood Pressure [Standing (for 1 minute prior to obtaining)] Blood Pressure Mean 118 124 Blood Pressure Mean [Lying] Blood Pressure Mean [Sitting (for 1 minute prior to obtaining)] Blood Pressure Mean [Standing (for 1 minute prior to obtaining)] Pulse Ox 98 100 Oxygen Delivery Method Room Air Room Air 02/10/23 19:49 02/10/23 21:29 02/10/23 21:00 Temperature Temperature Source Pulse Rate 70 61 Pulse Rate [Lying] 61 Pulse Rate [Sitting (for 1 minute prior to obtaining)] 64 Pulse Rate [Standing (for 1 minute prior to obtaining)] 79 Respiratory Rate 21 H 16 Respiratory Pattern Blood Pressure 150/96 H 167/80 H Blood Pressure [Lying] 157/88 H Blood Pressure [Sitting (for 1 minute prior to obtaining)] 156/90 H Blood Pressure [Standing (for 1 minute prior to obtaining)] 162/104 H Blood Pressure Mean 114 109 Blood Pressure Mean [Lying] 111 Blood Pressure Mean [Sitting (for 1 minute prior to obtaining)] 112 Blood Pressure Mean [Standing (for 1 minute prior to obtaining)] 123 Pulse Ox 97 95 Oxygen Delivery Method Room Air Room Air Positive well nourished General Appearance ED: NAD HEENT Reports moist mucous membranes HEENT Narrative: Positive [place]-Hallpike. Nystagmus noted Eyes PERRL and EOMs intact bilaterally Chest Wall inspection of chest normal Resp normal respiratory effort and clear to auscultation bilaterally Auscultation: Negative for rales, rhonchi or wheezes Cardio regular rate and regular rhythm Extremity normal to inspection Neuro oriented x3 and CN's II-XII intact bilaterally Sensorium / Orientation: alert Motor Exam: strength 5/5 throughout Psych mental status grossly normal Skin no rashes or lesions noted and no wounds MDM MDM MDM Narrative Medical decision making narrative: Patient presenting with vertigo. I was able to reproduce this on exam. Normal hints exam. He stated to me that he was not nauseous. Patient was given oral meclizine and vomited this up. He was then given IM Phenergan. Patient redosed with meclizine. Obtain basic lab work and his CBC and BMP were unremarkable with exception of a potassium of 5.3 with moderate hemolysis. Patient was resting comfortably after this on reevaluation. We attempted to ambulate him and he states I do not feel good. He states he still feels dizzy. He felt unsteady. At this point I did order an EKG to assess for dysrhythmia. EKG was normal sinus rhythm with a ventricular rate of 63 bpm without sign ischemic change. High sensitive troponin is added and is normal as well. Orthostatic vital signs were normal however the patient is significantly dizzy with standing. Chest x-ray my interpretation shows no acute process. Radiologist services and agrees. I did obtain a CT of the brain and this is normal. Patient reassessed at 10:20 PM. He still unable to get up out of the bed. At this point I will have admitted for intractable dizziness. Impression: 1. Vertigo Lab Data Labs: Laboratory Results - last 24 hr 02/10/23 02/10/23 02/10/23 16:57 16:57 20:30 WBC 6.3 RBC 4.42 L Hgb 14.3 Hct 43.0 MCV 97.3 H MCH 32.4 H MCHC 33.3 RDW Std Deviation 47.1 H RDW Coeff of Raul 13.1 Plt Count 226 MPV 10.8 Immature Gran % (Auto) 0.300 Neut % (Auto) 79.3 H Lymph % (Auto) 10.2 L Coal % (Auto) 8.3 Eos % (Auto) 1.3 Baso % (Auto) 0.6 Absolute Neuts (auto) 5.0 Absolute Lymphs (auto) 0.64 L Nucleated RBC % 0 Sodium 138 Potassium 5.3 H Chloride 108 H Carbon Dioxide 25.0 Anion Gap 5 BUN 25 H Creatinine 1.04 Estim Creat Clear Calc 45.17 Est GFR (MDRD) Af Amer 87 Est GFR (MDRD) Non-Af 72 BUN/Creatinine Ratio 24.0 H Glucose 110 H Calcium 9.0 Troponin I High Sens 12 Urine Color Urine Clarity Urine pH Ur Specific [place] Urine Protein Urine Glucose (UA) Urine Ketones Urine Occult Blood Urine Nitrite Urine Bilirubin Urine Urobilinogen Ur Leukocyte Esterase 02/10/23 21:41 WBC RBC Hgb Hct MCV MCH MCHC RDW Std Deviation RDW Coeff of Raul Plt Count MPV Immature Gran % (Auto) Neut % (Auto) Lymph % (Auto) Coal % (Auto) Eos % (Auto) Baso % (Auto) Absolute Neuts (auto) Absolute Lymphs (auto) Nucleated RBC % Sodium Potassium Chloride Carbon Dioxide Anion Gap BUN Creatinine Estim Creat Clear Calc Est GFR (MDRD) Af Amer Est GFR (MDRD) Non-Af BUN/Creatinine Ratio Glucose Calcium Troponin I High Sens Urine Color Yellow Urine Clarity Clear Urine pH 8.0 Ur Specific [place] 1.010 Urine Protein Negative Urine Glucose (UA) Normal Urine Ketones Negative Urine Occult Blood Negative Urine Nitrite Negative Urine Bilirubin Negative Urine Urobilinogen Normal Ur Leukocyte Esterase Negative Radiography Diagnostic Testing: Clinical Impression(s) from Imaging Studies Brain CT 02/10/23 20:13 IMPRESSION: Negative Brain CT without contrast. Electronically Signed: Angelo Paniagua MD at 21:04 EDT , Chest X-Ray 02/10/23 20:43 IMPRESSION: Bibasilar atelectasis. Electronically Signed: Angelo Painagua MD at 21:05 EDT , Discharge Plan Triage Chief Complaint: Hypertension ED Provider: Scott Merlos Dx/Rx/DC Orders Prescriptions: No Action cholecalciferol (vitamin D3) 2,000 UNIT capsule 2,000 unit PO DAILY aspirin 81 MG tablet 81 mg PO QODAY psyllium husk 660 GM powder 660 gm PO DAILY ciprofloxacin HCl 500 MG tablet 500 mg PO BID Qty: 14 0RF metronidazole 500 MG tablet 500 mg PO Q6H Qty: 40 0RF isosorbide mononitrate 30 mg tablet extended release 24 hr 30 mg PO DAILY Qty: 30 11RF metoprolol tartrate 25 mg tablet See Rx Instructions .ROUTE .COMPLEX Qty: 180 3RF Dose Instruction: TAKE 1 TABLET BY MOUTH TWICE A DAY Rx Instructions: TAKE 1 TABLET BY MOUTH TWICE A DAY Primary Care Provider: Luis Daniel Paredes Referrals: Luis Daniel Paredes MD [Primary Care Provider] -
[2023-02-10] MEDS: Meclizine HCl 25 MG Tablet PO ×2 (16:57→17:37)
[2023-02-10] MEDS: proMETHazine 25 MG/ML Syringe 12.5 MG IM (16:58)
[2023-02-10 17:07] LABS: Absolute Lymphocyte Count 0.64 X10^3/uL (0.83-4.51); Basophil# 0.04 X10^3/uL; Basophil% 0.6 % (0-1); Eosinophil# 0.08 X10^3/uL; Eosinophils% 1.3 % (0-5); Hemoglobin 14.3 g/dL (13.0-16.5); Lymphocyte # 0.64 X10^3/ul (0.83-4.51); Lymphocyte % 10.2 % (19-41); Mean Corp Hgb Conc 33.3 g/dL (32-36); Mean Corpuscular Hgb 32.4 pg (27.0-32.0); Mean Corpuscular Volume 97.3 fL (80-94); Mean Platelet Vol. 10.8 fl (6.2-12.0); Monocyte# 0.52 X10^3/uL; Monocyte% 8.3 % (0-10); NRBC Flagged by Analyzer 0 % (0-5); Neutrophil # 4.98 X10^3/uL (2.7-7.7); Neutrophil % 79.3 % (47-70); Platelet Count 226 K/mm3 (150-450); RBC Distribution Width CV 13.1 % (11.6-14.6); RBC Distribution Width SD 47.1 fl (35.1-43.9); Red Blood Count 4.42 M/mm3 (4.6-6.2); White Blood Count 6.3 K/mm3 (4.4-11.0)
[2023-02-10 17:30] LABS: Anion Gap 5 (5-15); BUN 25 mg/dL (7-18); Chloride 108 mmol/L (98-107); Creatinine, Serum 1.04 mg/dL (0.70-1.30); EST Glomerular Filtration Rate 72 mL/min (>60); Est Glom Filt Rate - Afr Amer 87 mL/min (>60); Estimated Creatinine Clearance 45.17 ml/min; Glucose 110 mg/dL (74-106); Potassium 5.3 mmol/L (3.5-5.1); Sodium Level 138 mmol/L (136-145)
[2023-02-10] MEDS: 0.9% Normal Saline 1,000 ML 999 ML IV (18:29)
--- NOTE | 2023-02-10 20:13 | EKG12_ITS ---
Test Reason : Blood Pressure : / mmHG Vent. Rate : 063 BPM Atrial Rate : 063 BPM P-R Int : 216 ms QRS Dur : 100 ms QT Int : 446 ms P-R-T Axes : 044 -32 016 degrees QTc Int : 456 ms Sinus rhythm with 1st degree A-V block Left axis deviation Abnormal ECG Confirmed by TEDDY POLLOCK, EDWIN ([id number]), order editor JAMIE CARRILLO ([id number]) on 02/12/2023 1:34:03 PM Referred By: Confirmed By:EDWIN ESPINAL MD
--- NOTE | 2023-02-10 20:13 | CT_ITS ---
INDICATION: Dizziness EXAMINATION: CT BRAIN - CT Head or Brain W/O Contrast Injection TECHNIQUE: Multiple axial images were obtained of the head without intravenous contrast. A radiation dose optimization technique was used for this scan. IV Contrast dosage and agent: None. COMPARISON: 09/27/2019 FINDINGS: BRAIN PARENCHYMA: No intra- or extra-axial hemorrhage. No evidence of acute infarct. No intracranial mass or mass effect. There is preservation of the [place]ulligan/white matter interface. Posterior fossa structures are unremarkable. CSF SPACES: Ex vacuo ventricular dilation is proportionate to global cerebral volume loss. Basal cisterns are patent. CALVARIUM, SKULL BASE, PARANASAL SINUSES AND MASTOID AIR CELLS: Clear. No discrete lytic or blastic abnormalities. ORBITS: Bilateral ocular lens replacements. [place] globes are demonstrated. ASPECTS Score for Acute Strokes: 10 CT/Brain/Head without Contrast IMPRESSION: Negative Brain CT without contrast. Electronically Signed: Angelo Paniagua MD at 21:04 EDT ,
--- NOTE | 2023-02-10 20:43 | RAD_ITS ---
INDICATION: Weakness EXAMINATION/TECHNIQUE: X-RAY - XR Chest 1 View COMPARISON: 04/17/2020 FINDINGS: LUNGS: Bibasilar atelectasis. No focal consolidation or large pleural effusion. MEDIASTINUM AND CARDIOVASCULAR STRUCTURES: Cardiac silhouette not enlarged. Central airways and mediastinal contour are unremarkable. RAD/Chest 1 View (Portable) IMPRESSION: Bibasilar atelectasis. Electronically Signed: Angelo Paniagua MD at 21:05 EDT ,
[2023-02-10 20:55] LABS: Troponin-I HS 12 pg/mL (3.0-78.0)
[2023-02-10 21:46] LABS: Bacteria 0 SEEN /hpf (None Seen); Mucous, Urine 0 SEEN /hpf (<or=2+); Red Blood Cells-Urine 0 SEEN /hpf (0-5); Squamous Epithelial Cells - UA 0 SEEN /hpf (0-5); White Blood Cells 0 SEEN /hpf (0-5)
[2023-02-10 21:47] LABS: Color, Urine Yellow (Yellow); Glucose, Dipstick Normal (Normal); Ketone-Dipstick Negative (Negative); Leukocyte Esterase-Dipstick Negative /ul (Negative); Nitrite-Dipstick Negative (Negative); Occult Blood-Urine Negative /ul (Negative); Protein-Dipstick Negative (Negative); Urine Bilirubin Dipstick Negative (Negative); Urine Clarity Clear (Clear); Urine Urobilinogen Normal (Normal)
--- NOTE | 2023-02-10 23:00 | PCM.HP.STD ---
HPI - General General Date of Admission: 02/10/23 Date of Service: 02/10/23 Chief Complaint: Positional vertigo onset. HPI Narrative The patient is an 87 y/o M w/ PMHx: HTN, HLD, BPH, Gout, Hx Lymphoma diagnosed 6 years prior treated with chemotherapy and considered in remission following with [facility] oncology group who presents to the [facility] ED on 02/10/23 with history of onset dizziness with associated vertigo earlier in the day specifically while he was working in his computer and had quickly turned his head to the left with immediate onset room spinning sensation with recurrence with any movement of his head and increased activity attempts with initially no nausea however in the ED he had some onset nausea and did have a bout of emesis but none since then with no concurrent neurological deficits prompting eventual ED evaluation. Work-up in the ED included T97.5, heart rate 63, BP 162/79, respiratory rate 22, 94% room air, CBC with WC 6.3, hemoglobin 14.3, platelet 226 with lymphopenia, BMP with potassium 5.3 however this is noted to be moderately hemolyzed, chloride 108, BUN/creat 25/1.04, glucose 110, troponin 12, urinalysis unremarkable, chest x-ray with bibasilar atelectasis, CT of the head with no acute intracranial findings, EKG with sinus rhythm with first-degree AV block with no acute evidence of ischemia. In the ED patient ministered meclizine 25 mg p.o. x2 as well as Phenergan 12.5 mg IM x1 and a 1 L normal saline bolus. Patient with medications and interventions did report some improvement however with attempts to get up and ambulate or function he still had recurrent vertiginous symptoms although lessened and given he lives alone prompted request for admission. [facility] Medical History (Updated 02/10/23 @ 23:[address] 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 Home Medications cholecalciferol (vitamin D3) 50 mcg (2,000 unit) capsule 2,000 unit PO DAILY vitamin 05/21/17 [History Last Taken 09/26/19] aspirin 81 mg tablet,delayed release 81 mg PO QODAY [facility] 02/24/18 [History Last Taken 09/26/19] carvedilol 3.125 mg tablet 3.125 mg PO DAILY 02/10/23 [History Last Taken Unknown] finasteride 5 mg tablet 5 mg PO DAILY 02/10/23 [History Last Taken Unknown] meloxicam 15 mg tablet 15 mg PO DAILY 02/10/23 [History Last Taken Unknown] tamsulosin 0.4 mg capsule 0.4 mg PO QHS 02/10/23 [History Last Taken Unknown] zinc 10 mg tablet 30 mg PO DAILY 02/10/23 [History Last Taken Unknown] Allergy/AdvReac Type Severity Reaction Status Date / Time amoxicillin trihydrate Allergy Other Verified 02/10/23 16:08 [From Augmentin] atenolol Allergy Other Verified 02/10/23 16:08 clindamycin Allergy Hives Verified 02/10/23 16:08 potassium clavulanate Allergy Unknown Verified 02/10/23 16:08 [From Augmentin] Family History (Updated 02/10/23 @ 23:[address] Veronica Fernandes MD) Mother Heart disease Brother Cancer prostate Father BPH (benign prostatic hyperplasia) Surgical History (Updated 02/10/23 @ 23:[address] Veronica Fernandes MD) H/O exploratory laparotomy History of hernia repair Social History (Updated 02/10/23 @ 23:[address] Veronica Fernandes MD) household members: none Smoking Status: Never smoker alcohol intake: never substance use type: does not use ROS ROS Narrative Admission Review of Systems: CONSTITUTIONAL: No weight loss, fever, chills, + weakness or fatigue. HEENT: + Vertiginous symptoms initially starting when he turned his head to the left but now with any movement Eyes: No visual loss, blurred vision, double vision or yellow sclerae. Ears, Nose, Throat: No hearing loss, sneezing, congestion, runny nose or sore throat. SKIN: No rash or itching, lesions, wounds. CARDIOVASCULAR: No chest pain, chest pressure or chest discomfort, palpitations, edema, orthopnea, syncopal events. RESPIRATORY: No shortness of breath, cough or sputum, wheezing, hemoptysis. GASTROINTESTINAL: + anorexia, nausea, vomiting. No diarrhea, abdominal pain, melena, BRBPR. GENITOURINARY: No dysuria, frequency, urgency or retention. NEUROLOGICAL: + Onset vertiginous symptoms. No headache, dizziness, syncope, paralysis, ataxia, numbness or tingling in the extremities, focal weakness, change in bowel or bladder control, seizure. MUSCULOSKELETAL: + muscle, back pain, joint pain or stiffness. HEMATOLOGIC: + Easy bleeding or bruising. LYMPHATICS: No enlarged nodes. No history of splenectomy. PSYCHIATRIC: No history of depression or anxiety. ENDOCRINOLOGIC: No reports of sweating, cold or heat intolerance. No polyuria or polydipsia. ALLERGIES: + history of hives. Vital Signs Vital Signs Vital Signs: 02/10/23 16:09 02/10/23 16:11 02/10/23 18:07 Temperature 97.8 F Temperature Source Temporal Pulse Rate 62 89 Pulse Rate [Lying] Pulse Rate [Sitting (for 1 minute prior to obtaining)] Pulse Rate [Standing (for 1 minute prior to obtaining)] Respiratory Rate 18 16 Respiratory Pattern Normal Blood Pressure 154/101 H 170/101 H Blood Pressure [Lying] Blood Pressure [Sitting (for 1 minute prior to obtaining)] Blood Pressure [Standing (for 1 minute prior to obtaining)] Blood Pressure Mean 118 124 Blood Pressure Mean [Lying] Blood Pressure Mean [Sitting (for 1 minute prior to obtaining)] Blood Pressure Mean [Standing (for 1 minute prior to obtaining)] Pulse Ox 98 100 Oxygen Delivery Method Room Air Room Air 02/10/23 19:49 02/10/23 21:29 02/10/23 21:00 Temperature Temperature Source Pulse Rate 70 61 Pulse Rate [Lying] 61 Pulse Rate [Sitting (for 1 minute prior to obtaining)] 64 Pulse Rate [Standing (for 1 minute prior to obtaining)] 79 Respiratory Rate 21 H 16 Respiratory Pattern Blood Pressure 150/96 H 167/80 H Blood Pressure [Lying] 157/88 H Blood Pressure [Sitting (for 1 minute prior to obtaining)] 156/90 H Blood Pressure [Standing (for 1 minute prior to obtaining)] 162/104 H Blood Pressure Mean 114 109 Blood Pressure Mean [Lying] 111 Blood Pressure Mean [Sitting (for 1 minute prior to obtaining)] 112 Blood Pressure Mean [Standing (for 1 minute prior to obtaining)] 123 Pulse Ox 97 95 Oxygen Delivery Method Room Air Room Air 02/10/23 22:28 02/10/23 22:53 Temperature 97.5 F L Temperature Source Temporal Pulse Rate 65 63 Pulse Rate [Lying] Pulse Rate [Sitting (for 1 minute prior to obtaining)] Pulse Rate [Standing (for 1 minute prior to obtaining)] Respiratory Rate 19 H 22 H Respiratory Pattern Blood Pressure 137/80 H 162/79 H Blood Pressure [Lying] Blood Pressure [Sitting (for 1 minute prior to obtaining)] Blood Pressure [Standing (for 1 minute prior to obtaining)] Blood Pressure Mean 99 106 Blood Pressure Mean [Lying] Blood Pressure Mean [Sitting (for 1 minute prior to obtaining)] Blood Pressure Mean [Standing (for 1 minute prior to obtaining)] Pulse Ox 96 94 Oxygen Delivery Method Room Air Room Air Weight Weight: 164 lb 3.91 oz Body Mass Index (BMI) 27.3 Physical Exam Narrative Physical Examination: General: Awake, alert, oriented x 3 and cooperative, seated upright in the ED bed, fatigued appearing, notes some improvement of his vertiginous symptoms but still with attempted standing has onset. Skin: Normal color, normal turgor, no icterus, no cyanosis. HEENT: AT/NC, EOMI, PERRLA, moderately dry MM, no carotid bruits or JVD noted, no obvious nystagmus with positional change but only reported mild nausea but no vertiginous symptom with movement in the bed now given improving. Lungs: Mildly diminished, greater bases, proper effort, no rales, ronchi or wheezing. Heart: Regular rate and rhythm; no gallop, rub audible. Abdomen: Soft, overweight, NTTP, ND, distant normal BS, no HSM. Extremities: No cyanosis, clubbing, or edema. Neurological: Patient awake, alert, oriented as noted, cognitive function intact; pupils equally reactive to light and accommodation, cranial nerves II-XII grossly normal, moving all 4 extremities, no focal deficits, strength moderately to severely global decrease secondary to vertiginous symptoms although improving, unable to reproduce with [place]-Hallpike the patient still does complain of some nausea with this maneuver but states he is better than he had been Psychiatric: Affect appears fatigued, no acute evidence of depressive or anxiety feelings. Results Lab / Micro Data Result Diagrams: 02/10/23 16:57 02/10/23 16:57 Labs: Laboratory Results - last 24 hr 02/10/23 16:57: WBC 6.3, RBC 4.42 L, Hgb 14.3, Hct 43.0, MCV 97.3 H, MCH 32.4 H, MCHC 33.3, RDW Std Deviation 47.1 H, RDW Coeff of Raul 13.1, Plt Count 226, MPV 10.8, Immature Gran % (Auto) 0.300, Neut % (Auto) 79.3 H, Lymph % (Auto) 10.2 L, [place] % (Auto) 8.3, Eos % (Auto) 1.3, Baso % (Auto) 0.6, Absolute Neuts (auto) 5.0, Absolute Lymphs (auto) 0.64 L, Nucleated RBC % 0 02/10/23 16:57: Sodium 138, Potassium 5.3 H, Chloride 108 H, Carbon Dioxide 25.0, Anion Gap 5, BUN 25 H, Creatinine 1.04, Estim Creat Clear Calc 45.17, Est GFR (MDRD) Af Amer 87, Est GFR (MDRD) Non-Af 72, BUN/Creatinine Ratio 24.0 H, Glucose 110 H, Calcium 9.0 02/10/23 20:30: Troponin I High Sens 12 02/10/23 21:41: Urine Color Yellow, Urine Clarity Clear, Urine pH 8.0, Ur Specific [place] 1.010, Urine Protein Negative, Urine Glucose (UA) Normal, Urine Ketones Negative, Urine Occult Blood Negative, Urine Nitrite Negative, Urine Bilirubin Negative, Urine Urobilinogen Normal, Ur Leukocyte Esterase Negative, Urine RBC 0 SEEN, Urine WBC 0 SEEN, Ur Squamous Epith Cells 0 SEEN, Urine Bacteria 0 SEEN, Urine Mucus 0 SEEN Radiology Impression Brain CT 02/10/23 20:13 IMPRESSION: Negative Brain CT without contrast. Electronically Signed: Angelo Paniagua MD at 21:04 EDT , Chest X-Ray 02/10/23 20:43 IMPRESSION: Bibasilar atelectasis. Electronically Signed: Angelo Paniagua MD at 21:05 EDT , Assessment & Plan Assessment/Plan (1) Vertigo: PLAN: Plan The patient is an 87 y/o M w/ PMHx: HTN, HLD, BPH, Gout, Hx Lymphoma diagnosed 6 years prior treated with chemotherapy and considered in remission following with [facility] oncology group who presents to the [facility] ED on 02/10/23 with history of onset dizziness with associated vertigo earlier in the day specifically while he was working in his computer and had quickly turned his head to the left with immediate onset room spinning sensation with recurrence with any movement. #1. Suspected benign positional vertigo: EKG in ED w/ sinus rhythm without evidence of acute ischemia, CXR w/ no acute cardiopulmonary findings with bibasilar atelectasis, initial trop normal. Will admit to medical surgical floor, maintain a fall cautions, will transition and utilize low-dose Valium, continue judicious hydration, consult physical and Occupational Therapy for discharge planning and if any persistent ongoing symptoms in a.m. may need to consider MRI of the brain to be cautious, as needed antiemetic regimen. #2. History lymphoma: Patient reports lymphoma specifically in the bone marrow but cannot give any more information than that, treated only with chemotherapy diagnosis years prior and consider now in remission previously following with [facility] oncology group. #3. Hypertension, history frequent PVCs: Continue home regimen including Coreg, PRN hydralazine for hypertension above goal. #4. Hyperlipidemia: Not on regimen, defer to outpatient. #5. BPH: We will continue patient on finasteride and Flomax regimen. #6. Gout: Per current list not on any chronic regimen, continue to monitor. #7. DVT prophylaxis: Lovenox. #8. CODE status: Patient HCPOA is his nephew Emil who is present and living will is currently in place. Discussed CODE status at length including difference between FULL code, DNR-CCA and DNR-CC status. Following discussions about the differences in these status, requested Full Code status. Advanced Care Planning Face to Face Time: 16 minutes. Admission Evaluation Time spent evaluating chart, patient history, patient evaluation, care planning and discussion with specialists: 55 minutes. Charges/Coding Visit Charges Inpatient E&M: 48001 Init Hosp L2 Procedures Hospitalists Procedures: 45385 Advncd Care Plan 30 Min
[2023-02-11] MEDS: diazePAM 2 MG Tablet PO ×5 (00:26→23:35)
[2023-02-11] MEDS: 0.9% Normal Saline 1,000 ML 100 ML IV ×3 (00:26→20:27)
[2023-02-11 03:54] VITALS: BMI 26.4
[2023-02-11 05:49] VITALS: BP 140/75; PULSE 54; RESP 15; TEMP 37.1; O2SAT 94
[2023-02-11 06:08] LABS: Absolute Lymphocyte Count 0.94 X10^3/uL (0.83-4.51); Absolute Neutrophil Count 3.6 X10^3/uL (2.0-7.7); Basophil# 0.04 X10^3/uL; Basophil% 0.7 % (0-1); Eosinophil# 0.06 X10^3/uL; Eosinophils% 1.1 % (0-5); Hematocrit 40.5 % (40-54); Hemoglobin 13.3 g/dL (13.0-16.5); Lymphocyte # 0.94 X10^3/ul (0.83-4.51); Lymphocyte % 17.5 % (19-41); Mean Corp Hgb Conc 32.8 g/dL (32-36); Mean Corpuscular Hgb 32.1 pg (27.0-32.0); Mean Corpuscular Volume 97.8 fL (80-94); Mean Platelet Vol. 10.2 fl (6.2-12.0); Monocyte# 0.69 X10^3/uL; Monocyte% 12.8 % (0-10); NRBC Flagged by Analyzer 0 % (0-5); Neutrophil # 3.64 X10^3/uL (2.7-7.7); Neutrophil % 67.7 % (47-70); Platelet Count 185 K/mm3 (150-450); RBC Distribution Width SD 46.5 fl (35.1-43.9); Red Blood Count 4.14 M/mm3 (4.6-6.2); White Blood Count 5.4 K/mm3 (4.4-11.0)
[2023-02-11 06:54] LABS: AST(SGOT) 20 U/L (15-37); Alanine Aminotransfer ALT/SGPT 23 U/L (16-61); Albumin, Serum 2.8 g/dL (3.2-5.0); Alkaline Phosphatase 73 U/L (45-117); Anion Gap 3 (5-15); BUN 19 mg/dL (7-18); BUN/Creat Ratio 22.2 RATIO (10-20); Calcium,Total 8.2 mg/dL (8.5-10.1); Chloride 110 mmol/L (98-107); Creatinine, Serum 0.85 mg/dL (0.70-1.30); EST Glomerular Filtration Rate 90 mL/min (>60); Est Glom Filt Rate - Afr Amer 109 mL/min (>60); Globulin 2.7 g/dL (2.2-4.2); Glucose 82 mg/dL (74-106); Potassium 4.1 mmol/L (3.5-5.1); Protein, Total 5.5 g/dL (6.4-8.2); Sodium Level 139 mmol/L (136-145)
[2023-02-11 08:33] VITALS: O2SAT 94
[2023-02-11] MEDS: Carvedilol 3.125 MG TABLET PO (09:01)
[2023-02-11] MEDS: Enoxaparin 40 MG/0.4 ML Syringe SC (09:01)
[2023-02-11] MEDS: Meloxicam 15 MG Tablet PO (09:02)
[2023-02-11] MEDS: Finasteride 5 MG Tablet PO (09:02)
[2023-02-11 09:14] VITALS: BP 133/69; PULSE 52; RESP 14; TEMP 36.9; O2SAT 96
[2023-02-11 11:00] VITALS: PULSE 52
--- NOTE | 2023-02-11 15:15 | PCM.PN.HOSP ---
Reason for Visit Reason for Visit: Diagnoses Dizziness and giddiness (02/10/23) Subjective Subjective Patient was seen and examined today, he still feels unsteady walking and he was walked in the [place] with a walker today which she is not used to using. I have increased the patient's Valium to 2 mg 4 times a day. Patient will be reevaluated tomorrow, at this time I will not order an MRI of the brain. Objective Data Objective Data Vital Signs: Vital Signs Temp Pulse Resp BP Pulse Ox O2 Del Method 98.4 F 52 L 14 133/69 H 96 Room Air 02/11/23 09:14 02/11/23 11:00 02/11/23 09:14 02/11/23 09:14 02/11/23 09:14 02/11/23 09:14 Oxygen Delivery Method Room Air Weight: 70.4 kg Body Mass Index (BMI) 26.4 Intake & Output: Intake and Output for Last 24 Hours 02/09/23 02/10/23 02/11/23 23:59 23:59 23:59 Intake Total 1000 / 1000 1420 / 1420 Output Total 880 / 880 Balance 1000 / 800 540 / 540 Lab / Micro Data Result Diagrams: 02/11/23 05:20 02/11/23 05:20 Labs: Laboratory Results - last 24 hr 02/10/23 16:57: WBC 6.3, RBC 4.42 L, Hgb 14.3, Hct 43.0, MCV 97.3 H, MCH 32.4 H, MCHC 33.3, RDW Std Deviation 47.1 H, RDW Coeff of Raul 13.1, Plt Count 226, MPV 10.8, Immature Gran % (Auto) 0.300, Neut % (Auto) 79.3 H, Lymph % (Auto) 10.2 L, Mckinley % (Auto) 8.3, Eos % (Auto) 1.3, Baso % (Auto) 0.6, Absolute Neuts (auto) 5.0, Absolute Lymphs (auto) 0.64 L, Nucleated RBC % 0 02/10/23 16:57: Sodium 138, Potassium 5.3 H, Chloride 108 H, Carbon Dioxide 25.0, Anion Gap 5, BUN 25 H, Creatinine 1.04, Estim Creat Clear Calc 45.17, Est GFR (MDRD) Af Amer 87, Est GFR (MDRD) Non-Af 72, BUN/Creatinine Ratio 24.0 H, Glucose 110 H, Calcium 9.0 02/10/23 20:30: Troponin I High Sens 12 02/10/23 21:41: Urine Color Yellow, Urine Clarity Clear, Urine pH 8.0, Ur Specific [place] 1.010, Urine Protein Negative, Urine Glucose (UA) Normal, Urine Ketones Negative, Urine Occult Blood Negative, Urine Nitrite Negative, Urine Bilirubin Negative, Urine Urobilinogen Normal, Ur Leukocyte Esterase Negative, Urine RBC 0 SEEN, Urine WBC 0 SEEN, Ur Squamous Epith Cells 0 SEEN, Urine Bacteria 0 SEEN, Urine Mucus 0 SEEN 02/11/23 05:20: WBC 5.4, RBC 4.14 L, Hgb 13.3, Hct 40.5, MCV 97.8 H, MCH 32.1 H, MCHC 32.8, RDW Std Deviation 46.5 H, RDW Coeff of Raul 13.0, Plt Count 185, MPV 10.2, Immature Gran % (Auto) 0.200, Neut % (Auto) 67.7, Lymph % (Auto) 17.5 L, Mckinley % (Auto) 12.8 H, Eos % (Auto) 1.1, Baso % (Auto) 0.7, Absolute Neuts (auto) 3.6, Absolute Lymphs (auto) 0.94, Nucleated RBC % 0 02/11/23 05:20: Sodium 139, Potassium 4.1, Chloride 110 H, Carbon Dioxide 26.0, Anion Gap 3 L, BUN 19 H, Creatinine 0.85, Estim Creat Clear Calc 53.20, Est GFR (MDRD) Af Amer 109, Est GFR (MDRD) Non-Af 90, BUN/Creatinine Ratio 22.2 H, Glucose 82, Calcium 8.2 L, Total Bilirubin 0.60, AST 20, ALT 23, Alkaline Phosphatase 73, Total Protein 5.5 L, Albumin 2.8 L, Globulin 2.7, Albumin/Globulin Ratio 1.0 Micro: Microbiology 02/11/23 00:05 Nasal Secretion SARS-CoV-2 Antigen (Rapid) - Final Radiography Diagnostic Testing: Radiology Impression Brain CT 02/10/23 20:13 IMPRESSION: Negative Brain CT without contrast. Electronically Signed: Angelo Paniagua MD at 21:04 EDT , Chest X-Ray 02/10/23 20:43 IMPRESSION: Bibasilar atelectasis. Electronically Signed: Angelo Paniagua MD at 21:05 EDT , Physical Exam Const alert, oriented x3, no apparent distress and average body habitus General Appearance: cooperative, well kempt and well developed Orientation / Consciousness: awake, oriented to person, oriented to place and oriented to time HEENT normocephalic, head/scalp atraumatic and moist oral mucous membranes Eyes PERRL, EOMs intact bilaterally and conjunctivae normal Neck supple, no JVD, thyroid normal and no carotid bruits General: trachea midline Resp normal respiratory effort, no retractions, no use of accessory muscles and clear to auscultation bilaterally Auscultation: Negative for rales, rhonchi or wheezes Cardio regular rate, regular rhythm, S1 normal heart sound, S2 normal heart sound, no murmurs, no rub and no gallops GI normal to inspection, nondistended, normoactive bowel sounds, soft to palpation, non-tender and non-distended Extremity no clubbing, cyanosis or edema Skin no rashes or lesions noted General Skin Exam: no breakdown Neuro oriented x3, CN's II-XII intact bilaterally, moves all extremities, no focal motor deficits and no sensory deficits noted Neuro Narrative: Patient was not ambulated during my exam today Sensorium / Orientation: awake and alert Speech: speech normal Psych affect normal Assessment & Plan Assessment/Plan (1) Vertigo: PLAN: Plan 1. 1 acute vertigo-at this time I will continue the patient on Valium, PT and OT will continue to see the patient #2 essential hypertension-patient is on Coreg #3 BPH-patient is on Flomax and Proscar Total clinical time spent by myself addressing patient's medical issues, reviewing all the data, and collaborating with patient's care team: 25 minutes Charges/Coding Visit Charges Inpatient E&M: 88970 Subs Hosp L1
[2023-02-11 20:32] VITALS: BP 133/67; PULSE 63; RESP 17; TEMP 36.8; O2SAT 94
[2023-02-11] MEDS: Tamsulosin HCl 0.4 MG Capsule PO (23:35)
[2023-02-11] MEDS: Senna/Docusate Sodium 1 Tablet 2 TABLET PO (23:43)
[2023-02-12] VITALS (7 sets, daily range): BP systolic 106–143; BP diastolic 70–81; PULSE 56–65; RESP 16–18; TEMP 36.4–37.2; O2SAT 92–98; BMI 26.9
[2023-02-12] MEDS: 0.9% Normal Saline 1,000 ML 100 ML IV (06:04)
[2023-02-12] MEDS: diazePAM 2 MG Tablet PO ×2 (06:04→12:54)
[2023-02-12] MEDS: Enoxaparin 40 MG/0.4 ML Syringe SC (08:59)
[2023-02-12] MEDS: Meloxicam 15 MG Tablet PO (09:01)
[2023-02-12] MEDS: Finasteride 5 MG Tablet PO (09:01)
[2023-02-12] MEDS: Aspirin E.C. 81 MG Tablet PO (09:01)
[2023-02-12] MEDS: Carvedilol 3.125 MG TABLET PO (09:01)
--- NOTE | 2023-02-12 13:30 | CASEMGMT ---
JEREMIE CM in to discuss SALINAS form with patient. RN CM explained SALINAS form, patient voiced understanding. Pt signed form and filed in chart. Pt provided with a copy of signed SALINAS form. Patient had no further questions or concerns at this time.
--- NOTE | 2023-02-12 13:30 | CASEMGMT ---
Addendum entered by Rita Eli 02/12/23 14:50: JEREMIE DASILVA into pt room, pt to be dc'd today. Pt agreeable to [facility], referral sent to [facility] at this time via [employer]. Discussed HHC and pt states he wants to try it without it at first. Provided pt with a list of HHC providers including quality and resource use data and consistent with the patient?s preferred geographic region, medical needs, and insurance network from the [employer]. He is aware that should he get home and change his mind and need HHC to call his PCP. Pt states his nephew will stay with him tonight. Pt nurse reported pt was interested in [facility]. Provided pt a handout with information highlighted for [facility] as well as a sample menu. Pt states that his nephew is able to help him complete this. Pt denies any further homegoing needs. He is aware that should he change his mind prior to dc to ask for the RN BROWN to set up HHC. Pt verbalized understanding. Original Note: JEREMIE DASILVA into pt room, pt eating lunch. Pt reports he lives alone in a two story home but does not use the upstairs. Pt states he is active, does not use DME. PT recommended [facility], provided pt with a verbal local list of DME companies, pt chose [facility]. Pt states he does his own meals and laundry. He does not drive due to his vision but has a friend or nephew who transports him. Pt denies any hx of HHC. Discussed that HHC is recommended. Pt states he prefers to wait and hope that he does not need this. JEREMIE DASILVA to follow. Pt denies further homegoing needs.
--- NOTE | 2023-02-12 14:27 | DS.PCM_ITS ---
Providers Date of Admission: 02/10/23 Date of Discharge: 02/12/23 Primary Care Physician: Dr. Luis Daniel Paredes MD Reason For Visit: BPPV Diagnosis Discharge Diagnosis (1) Vertigo: Status: Acute Code(s): R42 - Dizziness and giddiness Plan 1. 1 acute [id number] this time I will continue the patient on Valium, PT and OT will continue to see the patient #2 essential hypertension-patient is on Coreg #3 BPH-patient is on Flomax and Proscar Total clinical time spent by myself addressing patient's medical issues, reviewing all the data, and collaborating with patient's care team: 25 minutes Medications at Discharge Home Medications cholecalciferol (vitamin D3) 50 mcg (2,000 unit) capsule 2,000 unit PO DAILY vitamin 05/21/17 aspirin 81 mg tablet,del[facility] carvedilol 3.125 mg tablet 3.125 mg PO DAILY 02/10/23 finasteride 5 mg tablet 5 mg PO DAILY 02/10/23 meloxicam 15 mg tablet 15 mg PO DAILY 02/10/23 tamsulosin 0.4 mg capsule 0.4 mg PO QHS 02/10/23 zinc 10 mg tablet 30 mg PO DAILY 02/10/23 Hospital Course Operations None Procedures None Summary of Care Provided Minutes Spent on Discharge: 30 Hospital Course: 87-year-old white male was seen in the emergency room at [facility] with symptoms of generalized dizziness, the onset was earlier in the day, patient stated as he turned his head to the left while he was working he noticed the room was spinning. Patient had no other neurological symptoms, labs were unremarkable except for a potassium of 5.3 which was not felt to be significant. Patient was given oral meclizine but he vomited it up, he was then given IV Phenergan and redosed with meclizine. Patient attempted to ambulate in the emergency room and he stated he did not feel well and still felt dizzy and unsteady. CT of the brain was obtained which was normal. Patient was placed in observation status on MedSurg 3 and placed on oral Valium, his symptoms slowly resolved during his hospitalization, on 02/12/2023, patient was seen and examined: On examination he appeared in good health and spirits. Vital signs as documented. Skin warm and dry and without overt rashes. Neck without JVD, neck was supple, trachea midline, thyroid was normal. Lungs clear bilaterally, normal air movement was noted. Heart exam notable for regular rhythm, normal sounds and absence of murmurs, rubs or gallops. Abdomen unremarkable and without evidence of organomegaly, masses, or abdominal aortic enlargement. Bowel sounds are present, abdomen is not distended. Extremities nonedematous, no cyanosis was noted, no clubbing was noted. Neuro: Cranial nerves II through XII are grossly intact, no focal motor deficits were noted, sensation to light touch and pinprick intact, motor exam 5/5 throughout. Psych: Patient is alert and oriented x3, he does not appear anxious or depressed, he does not appear agitated. Patient appears to be stable for discharge on 02/12/2023. Weight / BMI Weight Weight: 71 kg Body Mass Index (BMI) 26.9 ABG / Lab / Microbiology Data Result Diagrams: 02/11/23 05:20 02/11/23 05:20 Microbiology: Microbiology 02/11/23 00:05 Nasal Secretion SARS-CoV-2 Antigen (Rapid) - Final D/C Instructions Discharge Diet: No restrictions Weight Bearing Status: Full weight bearing Meaningful Use Info Meaningful Use Diagnoses (Choose all that apply): None applicable Discharge Plan Admission Admit Date/Time: 02/10/23 23:09 Primary Reason for Your Visit: vertigo Attending Provider: Luis Daniel Ayala Primary Care Provider: Luis Daniel Paredes Consulting Providers: Veronica Fernandes Instructions Additional Instructions / Restrictions: Use a walker when ambulating Discharge Orders/Prescriptions Prescriptions: Continued cholecalciferol (vitamin D3) 2,000 UNIT capsule 2,000 unit PO DAILY aspirin 81 MG tablet 81 mg PO QODAY tamsulosin 0.4 mg capsule 0.4 mg PO QHS Label Comments: TAKE 1 CAPSULE BY MOUTH EVERYDAY AT BEDTIME finasteride 5 mg tablet 5 mg PO DAILY Label Comments: TAKE 1 TABLET BY MOUTH EVERY DAY meloxicam 15 mg tablet 15 mg PO DAILY Label Comments: TAKE 1 TABLET BY MOUTH ONCE DAILY. TAKE WITH FOOD. carvedilol 3.125 mg tablet 3.125 mg PO DAILY zinc 10 mg Tablet 30 mg PO DAILY Referrals / Follow Up: Luis Daniel Paredes MD [Primary Care Provider] - Within 2 Weeks Disposition Disposition (needs filled in before D/C Order can be placed): Home, Self Care Charges/Coding Visit Charges Inpatient E&M: 98899 Disch Hosp
--- NOTE | 2023-02-12 15:09 | PHA.DC.MR ---
Pharmacy Service has performed discharge medication reconciliation for this patient. The patient's discharge medication list was reviewed for discrepancies and discrepancies were resolved. Home Medications cholecalciferol (vitamin D3) 50 mcg (2,000 unit) capsule 2,000 unit PO DAILY vitamin 05/21/17 aspirin 81 mg tablet,delayed [facility] carvedilol 3.125 mg tablet 3.125 mg PO DAILY 02/10/23 finasteride 5 mg tablet 5 mg PO DAILY 02/10/23 meloxicam 15 mg tablet 15 mg PO DAILY 02/10/23 tamsulosin 0.4 mg capsule 0.4 mg PO QHS 02/10/23 zinc 10 mg tablet 30 mg PO DAILY 02/10/23
== END 2023-02-12 15:55 | disposition home or self-care (01) ==
LOC: ED 23:03 → MS3 23:19
PROVIDERS: Admitting Provider Family Medicine; Emergency Provider Student in an Organized Health Care Education/Training Program; PCP Family Medicine; Visit Provider Internal Medicine
DX: R42 Dizziness and giddiness (principal); C85.90 Non-Hodgkin lymphoma, unspecified, unspecified site; E78.5 Hyperlipidemia, unspecified; I10 Essential (primary) hypertension; Z92.21 Personal history of antineoplastic chemotherapy; N40.0 Benign prostatic hyperplasia without lower urinary tract symptoms; Z79.899 Other long term (current) drug therapy; Z79.82 Long term (current) use of aspirin
CPT/HCPCS: 36415; 70450; 71045; 80048; 80053; 81001; 84484; 85025; 87811; 93005; 94668; 96360; 96361; 96372; 97110; 97116; 97162; 97165; 97530; 97535; 99221; 99284; J7030; A4216; G0378